=== PATIENT | male | born 1965 | race Caucasian/White ===

== ENCOUNTER 2020-12-16 02:04 | Inpatient (IN) ==
[2020-12-16] MEDS ORDERED: ACETAMINOPHEN 500 MG TAB PO STA (03:20)
[2020-12-16] MEDS ORDERED: KETOROLAC 30 MG/ML VIAL IV ONE (03:20)
[2020-12-16] MEDS ORDERED: SODIUM CHLORIDE 0.9% 1000ML 500 ML IV ONE (03:20)
[2020-12-16 03:30] LABS: Eosinophils # (auto) 0.04 K/uL (0-0.5); Eosinophils % (auto) 0.8 %; Hematocrit (blood only) 41.6 % (42-52); Hemoglobin 14.5 g/dL (14.0-18.0); Lymphocytes # (auto) 0.77 K/uL (1.2-3.4); Lymphocytes % (auto) 15.2 %; Mean Corpuscular Hgb Conc 34.9 g/dL (32-36); Mean Corpuscular Volume 91.8 fL (80-100); Monocytes # (auto) 0.25 K/uL (0.11-0.59); Monocytes % (auto) 4.9 %; Neutrophils # (auto) 4.01 K/uL (1.4-6.5); Neutrophils % (auto) 79.1 %; Platelet Count 126 K/uL (130-400); RDW Coefficient of Variation 13.8 % (11.5-14.5); RDW Standard Deviation 46.4 fL (36.4-46.3); Red Blood Count 4.53 M/uL (4.7-6.1); White Blood Count 5.07 K/uL (4.8-10.8)
[2020-12-16 03:59] LABS: D Dimer 390 ug/L FEU (0-500); INR 0.9 (0.9-1.1); Partial Thromboplastin Ratio 1.1; Prothrombin Time 9.6 Seconds (9.0-12.0)
[2020-12-16 04:01] LABS: Albumin Level 3.3 gm/dl (3.4-5.0); BUN Creatinine Ratio 14.8 (10-20); Calcium 8.3 mg/dl (8.5-10.1); Creatinine Clr Calc Pharmacy 105.4 ml/min; Est GFR (African American) 99.5 ml/min; Est GFR (Non-African American) 85.8 ml/min; Magnesium 1.9 mg/dl (1.8-2.4)
[2020-12-16 04:04] LABS: Albumin Globulin Ratio 0.9 (0.9-2); Bilirubin,Total 0.5 mg/dl (0.2-1); Globulin 3.8 gm/dl (2.5-4.0); Total Protein 7.1 gm/dl (6.4-8.2)
[2020-12-16] MEDS ORDERED: POTASSIUM CHLORIDE / WTR 10 MEQ/100 ML PLCT IV ONE (04:15)
[2020-12-16] MEDS ORDERED: DEXAMETHASONE SOD INJ 4 MG/ML VIAL IV STA (04:15)
[2020-12-16] MEDS ORDERED: DOXYCYCLINE HYCLATE 100 MG in DEXTROSE 5% 100 ML IV STA (05:45)
[2020-12-16] MEDS ORDERED: POTASSIUM CHLORIDE CRTAB 20 MEQ TABCR PO STA (05:45)
--- NOTE | 2020-12-16 05:45 | History & Physical Report ---
Date of Service December 16, 2020 Assessment & Plan (1) Acute hypoxemic respiratory failure: Plan: Secondary to severe COVID-19 pneumonia With superimposed bacterial infection No overt sepsis for now hypertension, stable recurrent PE/DVT status post anticoagulation Hypokalemia secondary to diuretic Rx, diarrhea prediabetes on Metformin, hemoglobin A1c of 5.5 from 2019 Medical telemetry Supplemental O2 Decadron and Remdesivir for severe COVID-19 pneumonia. (Patient was counseled regarding potential adverse effects from Remdesivir therapy and provided with patient education sheet.) Pulmonary consult if without improvement. Replace potassium, hold home diuretic for now until patient euvolemic DVT prophylaxis per Lovenox subcu Full code Text document was generated using [employer] voice recognition software. It may contain grammatical or spelling errors. Kindly contact undersigned for clarification of any documentation item in question. History of Present Illness Chief Complaint: Worsening shortness of breath, Covid Primary Care Provider: Tadeo Montes DO History obtained from patient and records. Medical history significant for hypertension, recurrent PE/DVT status post anticoagulation, prediabetes, osteoarthritis, MARTA on CPAP, past tobacco abuse. Last confinement February 2014 under Orthopedics services for right shoulder surgery. 1 week history of junky cough symptoms, fever, chills, achy headache, loose stools, without abdominal pain with some shortness of breath. Possible COVID-19 contacts at work. Patient has had 1 dose of COVID-19 vaccine. COVID-19 test at urgent care center from 5 days ago was positive. Supportive care recommended by PCP's office. Patient consulted ER for worsening symptoms. O2 sats 80s at 1 point at the ER. Decadron given at the ER. 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 Allergies Allergy/AdvReac Type Severity Reaction Status Date / Time GATITO Inhibitors AdvReac Severe Cough Unverified 12/16/20 07:10 Home Medications Medication Instructions Recorded Confirmed Type acetaminophen 325 mg tablet 650 mg PO QID PRN 12/16/20 12/16/20 History (Tylenol) atorvastatin 20 mg tablet 20 mg PO DAILY 12/16/20 12/16/20 History losartan 100 1 tab PO DAILY 12/16/20 12/16/20 History mg-hydrochlorothiazide 25 mg tablet metformin 500 mg tablet 500 mg PO BIDM 12/16/20 12/16/20 History sertraline 100 mg tablet 100 mg PO DAILY 12/16/20 12/16/20 History Past Med/Surg History Social History Smoking Status: Never smoker Do You Dip or Chew Tobacco: Yes; Tobacco Cessation Education Requested by Patient: No Hx Alcohol Use: No Hx Substance Use: No Preferred Language: Gabonese Communication Ability: Effective Caponizer Required: Yes Beliefs That Will Affect Care: None Current Living Situation: Alone Other Information That Helps Us Care for You: No Feels Safe at Home: No Is there a partner from a previous relationship who is making you feel unsafe now?: No Any Concerns about Your Family Situation: No Would You Like to Speak to Someone About Your Situation: No Safety Concerns: Feels Safe At This Time Review of Systems Review of Systems: As per HPI, all 10 systems reviewed, all other ROS negative Physical Exam Physical Exam: GENERAL: Comfortable, pleasant, obese, no respiratory distress SKIN: Normal color, warm HEENT: Alopecia, [place] palpebral conjunctivae, no ptosis, dry buccal mucosa, nasal cannula in place NECK : Supple, short neck, no tenderness CHEST : Decreased breath sounds, no tenderness HEART : RRR, no obvious murmurs ABDOMEN: Some distention, nontender EXTREMITIES : Minimal LE swelling, no LE tenderness, no other conspicuous deformities noted NEUROLOGIC : Coherent, no facial asymmetry, no other gross focality Results & Data Results & Data ([facility]) Vital Signs (Past 12 Hours) Vital Signs Temp Pulse Resp BP Pulse Ox 12/16/20 05:00 79 20 133/79 94 12/16/20 04:45 83 19 160/98 H 94 12/16/20 04:30 80 20 153/90 H 93 12/16/20 04:19 38.0 C H 12/16/20 04:15 85 17 125/84 93 12/16/20 04:00 88 14 127/86 94 12/16/20 03:45 87 21 154/100 H 96 12/16/20 03:30 81 12 146/101 H 95 12/16/20 03:25 17 97 12/16/20 03:18 83 16 150/104 H 95 12/16/20 03:03 88 L 12/16/20 02:58 93 12/16/20 02:09 38.4 C H 96 H 20 139/86 93 Laboratory Results Laboratory Results WBC 5.07 K/uL (4.8-10.8) 12/16/20 03:00 RBC 4.53 M/uL (4.7-6.1) L 12/16/20 03:00 Hgb 14.5 g/dL (14.0-18.0) 12/16/20 03:00 Hct 41.6 % (42-52) L 12/16/20 03:00 MCV 91.8 fL (80-100) 12/16/20 03:00 MCH 32.0 pg (25-34) 12/16/20 03:00 MCHC 34.9 g/dL (32-36) 12/16/20 03:00 RDW Std Deviation 46.4 fL (36.4-46.3) H 12/16/20 03:00 RDW Coeff of Christiano 13.8 % (11.5-14.5) 12/16/20 03:00 Plt Count 126 K/uL (130-400) L 12/16/20 03:00 MPV 11.0 fL (7.4-10.4) H 12/16/20 03:00 Immature Gran % (Auto) 0.0 % 12/16/20 03:00 Neut % (Auto) 79.1 % 12/16/20 03:00 Lymph % (Auto) 15.2 % 12/16/20 03:00 Ida % (Auto) 4.9 % 12/16/20 03:00 Eos % (Auto) 0.8 % 12/16/20 03:00 Baso % (Auto) 0.0 % 12/16/20 03:00 Neut # (Auto) 4.01 K/uL (1.4-6.5) 12/16/20 03:00 Lymph # (Auto) 0.77 K/uL (1.2-3.4) L 12/16/20 03:00 Ida # (Auto) 0.25 K/uL (0.11-0.59) 12/16/20 03:00 Eos # (Auto) 0.04 K/uL (0-0.5) 12/16/20 03:00 Baso # (Auto) 0.00 K/uL (0-0.2) 12/16/20 03:00 Immature Gran # (Auto) 0.00 K/uL (0.00-0.02) 12/16/20 03:00 PT 9.6 Seconds (9.0-12.0) 12/16/20 03:00 INR 0.9 (0.9-1.1) 12/16/20 03:00 APTT 29.0 Seconds (21.0-31.0) 12/16/20 03:00 PTT Ratio 1.1 12/16/20 03:00 D-Dimer 390 ug/L FEU (0-500) 12/16/20 03:00 Sodium 130 mmol/L (136-145) L 12/16/20 03:00 Potassium 3.0 mmol/L (3.5-5.1) L 12/16/20 03:00 Chloride 98 mmol/L (98-107) 12/16/20 03:00 Carbon Dioxide 30 mmol/L (21-32) 12/16/20 03:00 Anion Gap 2.0 (3-11) L 12/16/20 03:00 BUN 15 mg/dl (7-18) 12/16/20 03:00 Creatinine 0.98 mg/dl (0.6-1.4) 12/16/20 03:00 Est Cr Clr Drug Dosing 105.4 ml/min 12/16/20 03:00 Est GFR ( Amer) 99.5 ml/min 12/16/20 03:00 Est GFR (Non-Af Amer) 85.8 ml/min 12/16/20 03:00 BUN/Creatinine Ratio 14.8 (10-20) 12/16/20 03:00 Glucose 128 mg/dl (70-99) H 12/16/20 03:00 Lactate 1.2 mmol/L (0.4-2.0) 12/16/20 04:49 Calcium 8.3 mg/dl (8.5-10.1) L 12/16/20 03:00 Magnesium 1.9 mg/dl (1.8-2.4) 12/16/20 03:00 Total Bilirubin 0.5 mg/dl (0.2-1) 12/16/20 03:00 AST 52 U/L (15-37) H 12/16/20 03:00 ALT 36 U/L (12-78) 12/16/20 03:00 Alkaline Phosphatase 58 U/L (45-117) 12/16/20 03:00 Total Protein 7.1 gm/dl (6.4-8.2) 12/16/20 03:00 Albumin 3.3 gm/dl (3.4-5.0) L 12/16/20 03:00 Globulin 3.8 gm/dl (2.5-4.0) 12/16/20 03:00 Albumin/Globulin Ratio 0.9 (0.9-2) 12/16/20 03:00 Diagnostic Findings Chest x-ray as per my interpretation multifocal pneumonia EKG as per my interpretation : Rate 90, NSR, LAD, LAFB, incomplete RBBB, diffuse T wave flattening
[2020-12-16] MEDS ORDERED: REMDESIVIR 200 MG in SODIUM CHLORIDE 0.9% 210 ML IV STA (05:53)
--- NOTE | 2020-12-16 07:40 | XRay Report ---
XR chest 1V portable HISTORY: 55 years-old Male SEPSIS acute sepsis COMPARISON: Chest radiograph and CTA chest 02/28/2014 TECHNIQUE: Portable AP view of the chest FINDINGS: Cardiac silhouette is enlarged. Pulmonary vascular congestion with reticular interstitial opacities. Ill-defined airspace densities are notably present throughout the left lung. Blunting of the costophr enic angles. No pneumothorax. Degenerative changes of the spine and left shoulder. Right shoulder tot al joint arthroplasty. IMPRESSION: Cardiomegaly with left greater than right bilateral pulmonary opacities suggestive of mul tifocal pneumonia. ACT 112: Negative or not required by law. The above report was generated using voice recognition software. It may contain grammatical, syntax o r spelling errors. Electronically signed by: Walter Jimenez M.D. 12/16/2020 7:39 AM
[2020-12-16] MEDS ORDERED: ACETAMINOPHEN 325 MG TAB PO PRN ×2 (08:08)
[2020-12-16] MEDS ORDERED: MAGNESIUM SULFATE / D5W 1 GM/100 ML BAG IV ONE (08:08)
[2020-12-16] MEDS ORDERED: PROMETHAZINE HCL 12.5 MG in SODIUM CHLORIDE 0.9% 50 ML IV PRN (08:08)
[2020-12-16] MEDS ORDERED: POTASSIUM CHLORIDE 40 MEQ in SODIUM CHLORIDE 0.9% 1000ML 1,000 ML IV ONE (08:08)
[2020-12-16] MEDS ORDERED: ALBUTEROL HFA 8 GM INHALER INH PRN (08:08)
[2020-12-16] MEDS ORDERED: oxyCODONE HCL IR 5 MG TAB (IMMEDIATE RELEASE) PO PRN (08:08)
[2020-12-16] MEDS ORDERED: SODIUM CHLORIDE 0.9% 10ML FLUSH IV SCH (08:08)
[2020-12-16] MEDS ORDERED: ENOXAPARIN INJ 40 MG/0.4 ML SYR SQ SCH ×2 (09:00→21:00)
[2020-12-16] MEDS: SERTRALINE HCL 100 MG TABLET PO SCH (11:08)
[2020-12-16] MEDS: ATORVASTATIN 20 MG TAB PO SCH (11:08)
[2020-12-16] MEDS: LOSARTAN POTASSIUM 50 MG TAB PO SCH (11:08)
--- NOTE | 2020-12-16 18:25 | Hospitalist Progress Note ---
Date of Service December 16, 2020 Assessment & Plan (1) Acute hypoxemic respiratory failure: Plan: Present on admission with worsening SOB Testing positive with COVID 19 CXR showed cardiomegaly with left greater than right bilateral pulmonary opacities suggestive of multifocal pneumonia. Received Dexamethasone 10mg IV and Doxycycline Continue Remdesivir and Decadron, will continue Continue monitor liver enzymes while on Remdesivir` Will check Inflammatory marker such as ESR, CRP, Ferritin and procalcitonin Pt was advised to prone Continue oxygen supplement Hypokalemia K replaced Continue monitor BMP Hx recurrent DVTPE Will place on Lovenox px Hypertension BP stable DVT prophylaxis per Lovenox subcu Full code Admission and Anticipated Discharge Date Admission Date: December 16, 2020 Subjective Pt was seen and examined for follow up of SOB due to COVID 19 Lying in bed with no acute distress Pt said that his breathing is slightly better Denies any chest pain, palpitation, dizziness, and fever Review of Systems Review of Systems: All systems reviewed & are unremarkable except as noted in Subjective Physical Exam Physical Exam: General- No acute distress Head- atraumatic Eyes- PERRL, EOMI, ENT- oropharynx clear Neck- supple, no JVD Lungs- Diminished breath sound Heart- regular rhythm; no murmur Abdomen- normal bowel sounds, soft, nontender Extremities- no calf tenderness Neuro- alert, oriented x 3; PERRL, EOMI; no facial palsy; no dysarthria Skin- warm & dry Results & Data Results & [facility] ([facility]) Vital Signs (Past 12 Hours) Vital Signs Temp Pulse Pulse Resp BP BP Pulse Ox 12/16/20 16:41 36.7 C 75 20 129/77 94 12/16/20 12:21 36.6 C 66 19 108/65 91 12/16/20 09:00 71 12/16/20 08:08 36.9 C 68 16 130/88 96 12/16/20 07:40 20 97 12/16/20 06:30 83 15 125/84 93
--- NOTE | 2020-12-16 18:27 | Emergency Department Note ---
Impression & Plan COVID-19, Multifocal pneumonia, Hypoxia, Hypokalemia Admit to the [facility] ED Provider Note NAME: DARIEN BARILLAS AGE: 55 SEX: M ARRIVES VIA: Walk-In INFORMANT: [Patient ED PROVIDER(S): Tala Gaspar DO CHIEF COMPLAINT: Shortness of breath and fever PLAN: Disposition: Admit to the [facility] service Condition: Guarded MEDICAL DECISION MAKING: This is a 55-year-old male patient who presents to the emergency department with fever, shortness of breath and generalized weakness. Patient was diagnosed with COVID-19. Patient was concerned because his weakness was worsening. Patient has multifocal pneumonia on chest x-ray and was hypoxic without oxygen. Patient was given IV Decadron here in the emergency department. [facility]. Triage Nursing notes reviewed and agree with them. Vital Signs: reviewed and remarkable for hypoxia Differential diagnosis: Pneumonia, electrolyte abnormality, dehydration, COVID-19 ER treatment provided: IV Decadron IV normal saline Oral Tylenol IV Toradol IV potassium Diagnostics interpreted by me: ECG: Normal sinus rhythm at a rate of 89 with T wave inversions in lead aVL. No ST segment elevation or signs of ischemia. Cardiac Monitoring: Normal sinus rhythm at a rate of 84 Laboratory studies: See below Imaging studies: As per my interpretation Portable chest x-ray: Multifocal pneumonia consistent with Covid HPI: 55/M arrives for evaluation of shortness of breath and fever. Patient presents to the emergency department complaining of fever, headache, shortness of breath, dizziness and lightheadedness. Patient was diagnosed with COVID-19 earlier this week. He has had worsening generalized weakness. The patient has a history of previous pulmonary emboli. ROS: See above HPI for pertinent positives & negatives. A total of 10 systems reviewed and were otherwise negative. 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 Extraocular eye muscles are intact, and sclera are anicteric. Nose - moist nasal mucosa without discharge. Mouth - moist buccal mucosa. Oropharynx is nonerythematous and there is no tonsillar exudate or edema noted. Neck: Supple; no JVD, nuchal rigidity, cervical lymphadenopathy, or auscultated bruits. Heart: Regular rate and rhythm. There is a normal S1 and S2 with no murmurs, clicks, or gallops appreciated. Lungs: Diminished breath sounds throughout with rhonchi in both bases. Abdomen: Soft, completely nontender, nondistended, with good bowel sounds. There are no palpable pulsatile masses or hepatosplenomegaly. There is no guarding, rigidity, or rebound noted. Extremities: No evidence of cyanosis, clubbing, or edema. There are easily palpable peripheral pulses. Skin: warm and dry with good turgor and no rashes. ED COURSE: The patient was evaluated in room B6. A septic protocol was performed. Laboratory studies were drawn. An order was placed for continuous cardiac monitoring. The patient was in a normal sinus rhythm at a rate of 84. The patient was started on IV normal saline solution. He was given a dose of 10 mg of IV Decadron. Patient was placed on supplemental oxygen for hypoxia. Patient had chest x-ray performed. The patient felt more comfortable. [facility] for further management. The patient was given a dose of oral Tylenol Patient was given a dose of 30 mg of IV Toradol for his diffuse body aches. He was noted to be hypokalemic and was given a K rider. I have personally spent greater than 45 minutes of critical care time in the direct management of this patient. This includes bedside care, interpretation of diagnostic studies, and testing, discussion with consultants, patient, and family members, and other required patient management activities. This 45 minut es is in excess of all separately billable procedures. Tala Gaspar, DO Past Med/Surg History Social History Smoking Status: Never smoker Do You Dip or Chew Tobacco: Yes; Tobacco Cessation Education Requested by Patient: No Hx Alcohol Use: No Hx Substance Use: No Preferred Language: Qatari Communication Ability: Effective Cardiology Specialist Required: No Beliefs That Will Affect Care: None Current Living Situation: Alone Other Information That Helps Us Care for You: No Feels Safe at Home: No Is there a partner from a previous relationship who is making you feel unsafe now?: No Any Concerns about Your Family Situation: No Would You Like to Speak to Someone About Your Situation: No Safety Concerns: Feels Safe At This Time Assistive Devices: Oxygen - Continuous Allergies Allergies Allergy/AdvReac Type Severity Reaction Status Date / Time GATITO Inhibitors AdvReac Severe Cough Unverified 12/16/20 07:10 Home Meds Home Medications Medication Instructions Recorded Confirmed acetaminophen 325 mg tablet 650 mg PO QID PRN 12/16/20 12/16/20 (Tylenol) atorvastatin 20 mg tablet 20 mg PO DAILY 12/16/20 12/16/20 losartan 100 1 tab PO DAILY 12/16/20 12/16/20 mg-hydrochlorothiazide 25 mg tablet metformin 500 mg tablet 500 mg PO BIDM 12/16/20 12/16/20 sertraline 100 mg tablet 100 mg PO DAILY 12/16/20 12/16/20 Results & Data (ED) Vital Signs Vital Signs - 24 hr 12/16/20 02:09 12/16/20 02:58 12/16/20 03:03 Temperature 38.4 C H Temperature Source Oral Pulse Rate 96 H Pulse Rate from SpO2 Sensor Respiratory Rate 20 Respiratory Effort / Characteristics Non-Labored Spontaneous Non-Labored Respiratory Depth Normal Normal Respiratory Pattern Regular Blood Pressure 139/86 Blood Pressure Mean 103 Blood Pressure Position Sitting Pulse Oximetry 93 93 88 L Oxygen Delivery Method Room Air Room Air Nasal Cannula Oxygen Flow Rate 0 Sepsis Recent Fever Within 48 Hours Yes Sepsis New/Unexplained Change in Mental Status N/A Sepsis Action Taken by Nursing No Action Required Oxygen Flow Rate - Titration 2 Pulse Oximetry Post Tiitration 93 12/16/20 03:18 12/16/20 03:25 12/16/20 03:30 Temperature Temperature Source Pulse Rate 83 81 Pulse Rate from SpO2 Sensor 83 81 Respiratory Rate 16 17 12 Respiratory Effort / Characteristics Non-Labored Respiratory Depth Respiratory Pattern Blood Pressure 150/104 H 146/101 H Blood Pressure Mean 119 116 Blood Pressure Position Pulse Oximetry 95 97 95 Oxygen Delivery Method Nasal Cannula Nasal Cannula Nasal Cannula Oxygen Flow Rate 2 2 2 Sepsis Recent Fever Within 48 Hours Sepsis New/Unexplained Change in Mental Status Sepsis Action Taken by Nursing Oxygen Flow Rate - Titration Pulse Oximetry Post Tiitration 12/16/20 03:45 12/16/20 04:00 12/16/20 04:15 Temperature Temperature Source Pulse Rate 87 88 85 Pulse Rate from SpO2 Sensor 87 89 86 Respiratory Rate 21 14 17 Respiratory Effort / Characteristics Respiratory Depth Respiratory Pattern Blood Pressure 154/100 H 127/86 125/84 Blood Pressure Mean 118 99 97 Blood Pressure Position Pulse Oximetry 96 94 93 Oxygen Delivery Method Nasal Cannula Room Air Room Air Oxygen Flow Rate 2 Sepsis Recent Fever Within 48 Hours Sepsis New/Unexplained Change in Mental Status Sepsis Action Taken by Nursing Oxygen Flow Rate - Titration Pulse Oximetry Post Tiitration 12/16/20 04:19 12/16/20 04:30 12/16/20 04:45 Temperature 38.0 C H Temperature Source Oral Pulse Rate 80 83 Pulse Rate from SpO2 Sensor 80 83 Respiratory Rate 20 19 Respiratory Effort / Characteristics Respiratory Depth Respiratory Pattern Blood Pressure 153/90 H 160/98 H Blood Pressure Mean 111 118 Blood Pressure Position Pulse Oximetry 93 94 Oxygen Delivery Method Room Air Room Air Oxygen Flow Rate Sepsis Recent Fever Within 48 Hours Sepsis New/Unexplained Change in Mental Status Sepsis Action Taken by Nursing Oxygen Flow Rate - Titration Pulse Oximetry Post Tiitration 12/16/20 05:00 12/16/20 05:15 12/16/20 05:30 Temperature Temperature Source Pulse Rate 79 77 83 Pulse Rate from SpO2 Sensor 80 77 81 Respiratory Rate 20 12 13 Respiratory Effort / Characteristics Respiratory Depth Respiratory Pattern Blood Pressure 133/79 134/88 141/97 H Blood Pressure Mean 97 103 111 Blood Pressure Position Pulse Oximetry 94 94 93 Oxygen Delivery Method Room Air Nasal Cannula Nasal Cannula Oxygen Flow Rate 2 2 Sepsis Recent Fever Within 48 Hours Sepsis New/Unexplained Change in Mental Status Sepsis Action Taken by Nursing Oxygen Flow Rate - Titration Pulse Oximetry Post Tiitration 12/16/20 05:45 Temperature Temperature Source Pulse Rate 77 Pulse Rate from SpO2 Sensor 77 Respiratory Rate 14 Respiratory Effort / Characteristics Respiratory Depth Respiratory Pattern Blood Pressure 136/75 Blood Pressure Mean 95 Blood Pressure Position Pulse Oximetry 94 Oxygen Delivery Method Nasal Cannula Oxygen Flow Rate 2 Sepsis Recent Fever Within 48 Hours Sepsis New/Unexplained Change in Mental Status Sepsis Action Taken by Nursing Oxygen Flow Rate - Titration Pulse Oximetry Post Tiitration Laboratory Data Result diagrams: 12/17/20 06:25 12/17/20 06:25 Lab Results 12/16/20 12/16/20 12/16/20 Range/Units 03:00 03:00 03:00 WBC 5.07 (4.8-10.8) K/uL RBC 4.53 L (4.7-6.1) M/uL Hgb 14.5 (14.0-18.0) g/dL Hct 41.6 L (42-52) % MCV 91.8 (80-100) fL MCH 32.0 (25-34) pg MCHC 34.9 (32-36) g/dL RDW Std Deviation 46.4 H (36.4-46.3) fL RDW Coeff of Christiano 13.8 (11.5-14.5) % Plt Count 126 L (130-400) K/uL MPV 11.0 H (7.4-10.4) fL Immature Gran % (Auto) 0.0 % Neut % (Auto) 79.1 % Lymph % (Auto) 15.2 % Benzie % (Auto) 4.9 % Eos % (Auto) 0.8 % Baso % (Auto) 0.0 % Neut # (Auto) 4.01 (1.4-6.5) K/uL Lymph # (Auto) 0.77 L (1.2-3.4) K/uL Benzie # (Auto) 0.25 (0.11-0.59) K/uL Eos # (Auto) 0.04 (0-0.5) K/uL Baso # (Auto) 0.00 (0-0.2) K/uL Immature Gran # (Auto) 0.00 (0.00-0.02) K/uL PT 9.6 (9.0-12.0) Seconds INR 0.9 (0.9-1.1) APTT 29.0 (21.0-31.0) Seconds PTT Ratio 1.1 D-Dimer 390 (0-500) ug/L FEU Sodium 130 L (136-145) mmol/L Potassium 3.0 L (3.5-5.1) mmol/L Chloride 98 (98-107) mmol/L Carbon Dioxide 30 (21-32) mmol/L Anion Gap 2.0 L (3-11) BUN 15 (7-18) mg/dl Creatinine 0.98 (0.6-1.4) mg/dl Est Cr Clr Drug Dosing 105.4 ml/min Est GFR ( Amer) 99.5 ml/min Est GFR (Non-Af Amer) 85.8 ml/min BUN/Creatinine Ratio 14.8 (10-20) Glucose 128 H (70-99) mg/dl Lactate (0.4-2.0) mmol/L Calcium 8.3 L (8.5-10.1) mg/dl Magnesium 1.9 (1.8-2.4) mg/dl Total Bilirubin 0.5 (0.2-1) mg/dl AST 52 H (15-37) U/L ALT 36 (12-78) U/L Alkaline Phosphatase 58 (45-117) U/L Total Protein 7.1 (6.4-8.2) gm/dl Albumin 3.3 L (3.4-5.0) gm/dl Globulin 3.8 (2.5-4.0) gm/dl Albumin/Globulin Ratio 0.9 (0.9-2) 12/16/20 Range/Units 04:49 WBC (4.8-10.8) K/uL RBC (4.7-6.1) M/uL Hgb (14.0-18.0) g/dL Hct (42-52) % MCV (80-100) fL MCH (25-34) pg MCHC (32-36) g/dL RDW Std Deviation (36.4-46.3) fL RDW Coeff of Christiano (11.5-14.5) % Plt Count (130-400) K/uL MPV (7.4-10.4) fL Immature Gran % (Auto) % Neut % (Auto) % Lymph % (Auto) % Benzie % (Auto) % Eos % (Auto) % Baso % (Auto) % Neut # (Auto) (1.4-6.5) K/uL Lymph # (Auto) (1.2-3.4) K/uL Benzie # (Auto) (0.11-0.59) K/uL Eos # (Auto) (0-0.5) K/uL Baso # (Auto) (0-0.2) K/uL Immature Gran # (Auto) (0.00-0.02) K/uL PT (9.0-12.0) Seconds INR (0.9-1.1) APTT (21.0-31.0) Seconds PTT Ratio D-Dimer (0-500) ug/L FEU Sodium (136-145) mmol/L Potassium (3.5-5.1) mmol/L Chloride (98-107) mmol/L Carbon Dioxide (21-32) mmol/L Anion Gap (3-11) BUN (7-18) mg/dl Creatinine (0.6-1.4) mg/dl Est Cr Clr Drug Dosing ml/min Est GFR ( Amer) ml/min Est GFR (Non-Af Amer) ml/min BUN/Creatinine Ratio (10-20) Glucose (70-99) mg/dl Lactate 1.2 (0.4-2.0) mmol/L Calcium (8.5-10.1) mg/dl Magnesium (1.8-2.4) mg/dl Total Bilirubin (0.2-1) mg/dl AST (15-37) U/L ALT (12-78) U/L Alkaline Phosphatase (45-117) U/L Total Protein (6.4-8.2) gm/dl Albumin (3.4-5.0) gm/dl Globulin (2.5-4.0) gm/dl Albumin/Globulin Ratio (0.9-2) Administered Medications Atorvastatin Calcium (Atorvastatin 20 Mg Tab) 20 mg PO DAILY HARRIETT Stop: 01/15/21 08:59 Last Admin: 12/17/20 08:42 Dose: 20 mg Documented by: [id number] Admin: 12/16/20 11:08 Dose: 20 mg Documented by: [id number] Doxycycline Hyclate (Doxycycline Hyclate 100 Mg Cap) 100 mg PO BID HARRIETT Stop: 12/23/20 20:59 Last Admin: 12/17/20 08:42 Dose: 100 mg Documented by: [id number] Admin: 12/16/20 19:44 Dose: 100 mg Documented by: [id number] Enoxaparin Sodium (Enoxaparin Inj 40 Mg/0.4 Ml Syr) 40 mg SQ QAM HARRIETT Stop: 01/16/21 08:59 Last Admin: 12/17/20 08:45 Dose: 40 mg Documented by: [id number] Dexamethasone 6 mg/ Syringe 1.5 mls @ 1 mls/min IV DAILY HARRIETT Stop: 01/16/21 08:59 Last Admin: 12/17/20 08:43 Dose: 1 mls/min Documented by: [id number] Losartan Potassium (Losartan Potassium 50 Mg Tab) 100 mg PO QAM HARRIETT Stop: 01/15/21 08:59 Last Admin: 09/26/21 08:42 Dose: 100 mg Documented by: [id number] Admin: 12/16/20 11:08 Dose: 100 mg Documented by: [id number] Sertraline HCl (Sertraline Hcl 100 Mg Tablet) 100 mg PO DAILY HARRIETT Stop: 01/15/21 08:59 Last Admin: 12/17/20 08:43 Dose: 100 mg Documented by: [id number] Admin: 12/16/20 11:08 Dose: 100 mg Documented by: [id number] Discontinued Medications Acetaminophen (Acetaminophen 500 Mg Tab) 1,000 mg PO NOW STA Stop: 12/16/20 03:21 Last Admin: 12/16/20 03:36 Dose: 1,000 mg Documented by: [id number] Dexamethasone (Dexamethasone Sod Inj 4 Mg/Ml Vial) 10 mg IV NOW STA Stop: 12/16/20 04:16 Last Admin: 12/16/20 04:40 Dose: 10 mg Documented by: [id number] Enoxaparin Sodium (Enoxaparin Inj 40 Mg/0.4 Ml Syr) 40 mg SQ QAM HARRIETT Stop: 01/15/21 08:59 Last Admin: 12/16/20 11:09 Dose: 40 mg Documented by: [id number] Sodium Chloride (Nss 1000ml) 500 mls @ 999 mls/hr IV .Q31M ONE Stop: 12/16/20 03:50 Last Infusion: 12/16/20 03:46 Dose: 0 mls/hr Documented by: [id number] Admin: 12/16/20 03:15 Dose: 999 mls/hr Documented by: [id number] Potassium Chloride (K Virgil / Wtr) 10 meq in 100 mls @ 100 mls/hr IV ONE ONE Stop: 12/16/20 05:14 Last Infusion: 12/16/20 05:55 Dose: 0 mls/hr Documented by: [id number] Admin: 12/16/20 04:41 Dose: 100 mls/hr Documented by: [id number] Doxycycline Hyclate 100 mg/ (Dextrose) 110 mls @ 50 mls/hr IV NOW STA Stop: 12/16/20 07:56 Last Infusion: 12/16/20 09:06 Dose: 0 mls/hr Documented by: [id number] Admin: 12/16/20 06:05 Dose: 50 mls/hr Documented by: [id number] Remdesivir 200 mg/ Sodium (Chloride) 250 mls @ 125 mls/hr IV ONE STA; Protocol Stop: 12/16/20 07:52 Last Infusion: 12/16/20 09:06 Dose: 0 mls/hr Documented by: [id number] Admin: 12/16/20 06:27 Dose: 125 mls/hr Documented by: [id number] Magnesium Sulfate/Dextrose (Magnesium Sulfate / D5w) 1 gm in 100 mls @ 50 mls/hr IV ONE ONE Stop: 12/16/20 10:07 Last Infusion: 12/16/20 12:02 Dose: 0 mls/hr Documented by: [id number] Admin: 12/16/20 09:56 Dose: 50 mls/hr Documented by: [id number] Potassium Chloride 40 meq/ (Sodium Chloride) 1,020 mls @ 50 mls/hr IV .[id number] ONE Stop: 12/17/20 04:31 Last Infusion: 12/17/20 04:33 Dose: 0 mls/hr Documented by: [id number] Admin: 12/16/20 12:03 Dose: 50 mls/hr Documented by: [id number] Ketorolac Tromethamine (Ketorolac 30 Mg/Ml Vial) 30 mg IV NOW ONE Stop: 12/16/20 03:21 Last Admin: 12/16/20 03:37 Dose: 30 mg Documented by: [id number] Potassium Chloride (Potassium Chloride Crtab 20 Meq Tabcr) 40 meq PO NOW STA Stop: 12/16/20 05:46 Last Admin: 12/16/20 06:10 Dose: 40 meq Documented by: [id number] Sodium Chloride (Sodium Chloride 0.9% 10ml Flush) 30 ml IV Q24H HARRIETT Stop: 12/20/20 08:09 Last Admin: 12/16/20 08:28 Dose: 30 ml Documented by: [id number] Imaging Data Radiologist's Impression: Chest X-Ray 12/16/20 03:01 XR chest 1V portable HISTORY: 55 years-old Male SEPSIS acute sepsis COMPARISON: Chest radiograph and CTA chest 02/28/2014 TECHNIQUE: Portable AP view of the chest FINDINGS: Cardiac silhouette is enlarged. Pulmonary vascular congestion with reticular interstitial opacities. Ill-defined airspace densities are notably present throughout the left lung. Blunting of the costophrenic angles. No pneumothorax. Degenerative changes of the spine and left shoulder. Right shoulder total joint arthroplasty. IMPRESSION: Cardiomegaly with left greater than right bilateral pulmonary opacities suggestive of multifocal pneumonia. ACT 112: Negative or not required by law. The above report was generated using voice recognition software. It may contain grammatical, syntax or spelling errors. Electronically signed by: Walter Jimenez M.D. 12/16/2020 7:39 AM Discharge Plan Visit Data Chief Complaint: Shortness of Breath/Dyspnea Stated Complaint: COVID+ ON FRIDAY - SOB,FEVER,HEAD PRESSURE ED Provider: Tala Gaspar Discharge Problem: COVID-19, Multifocal pneumonia, Hypoxia, Hypokalemia Patient Disposition: Admitted As Inpatient Discharge Instructions Interventions: ED Discharge Assessment Last Done: 12/16/20 08:12
[2020-12-16] MEDS: DOXYCYCLINE HYCLATE 100 MG CAP PO SCH (19:44)
--- NOTE | 2020-12-17 07:03 | Electrocardiogram Report ---
Test Reason : Blood Pressure : / mmHG Vent. Rate : 089 BPM Atrial Rate : 089 BPM P-R Int : 178 ms QRS Dur : 102 ms QT Int : 362 ms P-R-T Axes : 045 -35 066 degrees QTc Int : 440 ms Normal sinus rhythm Left axis deviation Nonspecific T wave abnormality Abnormal ECG When compared with ECG of 28-FEB-2014 17:52, No significant change was found Confirmed by Cuauhtemoc Zazueta ([id number]) on 12/17/2020 7:03:13 AM Referred By: REFERRED SELF Confirmed By:Cuauhtemoc Zazueta
[2020-12-17 07:05] LABS: Hematocrit (blood only) 38.1 % (42-52); Lymphocytes % (auto) 11.6 %; Mean Corpuscular Hemoglobin 32.2 pg (25-34); Mean Corpuscular Hgb Conc 34.1 g/dL (32-36); Mean Corpuscular Volume 94.3 fL (80-100); Mean Platelet Volume 11.3 fL (7.4-10.4); Monocytes # (auto) 0.25 K/uL (0.11-0.59); Monocytes % (auto) 3.6 %; Neutrophils # (auto) 5.85 K/uL (1.4-6.5); Neutrophils % (auto) 84.8 %; Platelet Count 151 K/uL (130-400); RDW Coefficient of Variation 13.5 % (11.5-14.5); RDW Standard Deviation 47.1 fL (36.4-46.3); Red Blood Count 4.04 M/uL (4.7-6.1)
[2020-12-17 07:41] LABS: BUN Creatinine Ratio 23.1 (10-20); Calcium 7.8 mg/dl (8.5-10.1); Creatinine Clr Calc Pharmacy 126.9 ml/min; Est GFR (African American) 114.6 ml/min; Est GFR (Non-African American) 98.9 ml/min; Potassium 3.8 mmol/L (3.5-5.1)
[2020-12-17] MEDS: LOSARTAN POTASSIUM 50 MG TAB PO SCH (08:42)
[2020-12-17] MEDS: ATORVASTATIN 20 MG TAB PO SCH (08:42)
[2020-12-17] MEDS: DOXYCYCLINE HYCLATE 100 MG CAP PO SCH ×2 (08:42→19:46)
[2020-12-17] MEDS: SERTRALINE HCL 100 MG TABLET PO SCH (08:43)
[2020-12-17] MEDS: dexAMETHasone 6 MG in SYRINGE 0 ML IV SCH (08:43)
[2020-12-17] MEDS: ENOXAPARIN INJ 40 MG/0.4 ML SYR SQ SCH (08:45)
[2020-12-17 11:19] LABS: Albumin Level 2.7 gm/dl (3.4-5.0); Bilirubin,Total 0.3 mg/dl (0.2-1); C Reactive Protein 1.86 mg/dl (0-0.29); Ferritin 1469.1 ng/ml (8-388); Total Protein 6.3 gm/dl (6.4-8.2)
[2020-12-17] MEDS: SODIUM CHLORIDE 0.9% 10ML FLUSH IV SCH (12:39)
[2020-12-17] MEDS: REMDESIVIR 100 MG in SODIUM CHLORIDE 0.9% 230 ML IV SCH (12:39)
[2020-12-17] MEDS ORDERED: FUROSEMIDE 20 MG in SYRINGE 0 ML IV ONE (12:54)
[2020-12-17] MEDS ORDERED: FUROSEMIDE 40 MG/4 ML VIAL IV ONE (13:15)
--- NOTE | 2020-12-17 16:43 | Hospitalist Progress Note ---
Date of Service December 17, 2020 Assessment & Plan (1) Acute hypoxemic respiratory failure: Plan: Present on admission with worsening SOB Testing positive with COVID 19 CXR showed cardiomegaly with left greater than right bilateral pulmonary opacities suggestive of multifocal pneumonia. Received Dexamethasone 10mg IV and Doxycycline Continue Remdesivir and Decadron 6 mg daily Continue monitor liver enzymes while on Remdesivir` Inflammatory marker such as ESR 30, CRP 1.86 Ferritin 1469 and procalcitonin negative Pt was advised to continue proning Continue oxygen supplement Will give lasix 20mg x1 today Hypokalemia K 3.8 today Continue monitor BMP Hx recurrent DVTPE Continue Lovenox subq px Hypertension BP stable DVT prophylaxis per Lovenox subcu Full code Admission and Anticipated Discharge Date Admission Date: December 16, 2020 Subjective Pt was seen and examined for follow up of SOB due to COVID 19 Lying in bed with no acute distress Pt said that his breathing was alittle heavy today Denies any chest pain, palpitation, dizziness, and fever Review of Systems Review of Systems: All systems reviewed & are unremarkable except as noted in Subjective Physical Exam Physical Exam: General- No acute distress Head- atraumatic Eyes- PERRL, EOMI, ENT- oropharynx clear Neck- supple, no JVD Lungs- Diminished breath sound Heart- regular rhythm; no murmur Abdomen- normal bowel sounds, soft, nontender Extremities- no calf tenderness Neuro- alert, oriented x 3; PERRL, EOMI; no facial palsy; no dysarthria Skin- warm & dry Results & Data Results & Data ([facility]) Vital Signs (Past 12 Hours) Vital Signs Temp Pulse Pulse Pulse Resp BP Pulse Ox 12/17/20 15:51 73 12/17/20 15:23 36.9 C 65 16 127/75 92 12/17/20 11:09 36.7 C 83 20 133/78 91 12/17/20 07:37 37.2 C 63 18 112/67 94 12/17/20 07:33 60
[2020-12-18 06:49] LABS: Albumin Level 2.7 gm/dl (3.4-5.0); BUN Creatinine Ratio 24.9 (10-20); C Reactive Protein 1.2 mg/dl (0-0.29); Calcium 7.2 mg/dl (8.5-10.1); Creatinine Clr Calc Pharmacy 130.7 ml/min; Est GFR (African American) 116.3 ml/min; Est GFR (Non-African American) 100.4 ml/min; Potassium 3.6 mmol/L (3.5-5.1)
[2020-12-18 06:54] LABS: Albumin Globulin Ratio 0.7 (0.9-2); Bilirubin,Total 0.4 mg/dl (0.2-1); Ferritin 1212.7 ng/ml (8-388); Globulin 3.7 gm/dl (2.5-4.0); Total Protein 6.4 gm/dl (6.4-8.2)
[2020-12-18] MEDS ORDERED: FUROSEMIDE 20 MG in SYRINGE 0 ML IV ONE (08:27)
[2020-12-18] MEDS ORDERED: FUROSEMIDE 40 MG/4 ML VIAL IV SCH (08:45)
[2020-12-18] MEDS: ENOXAPARIN INJ 40 MG/0.4 ML SYR SQ SCH (08:57)
[2020-12-18] MEDS: dexAMETHasone 6 MG in SYRINGE 0 ML IV SCH (08:57)
[2020-12-18] MEDS: SERTRALINE HCL 100 MG TABLET PO SCH (08:57)
[2020-12-18] MEDS: LOSARTAN POTASSIUM 50 MG TAB PO SCH (08:58)
[2020-12-18] MEDS: DOXYCYCLINE HYCLATE 100 MG CAP PO SCH ×2 (08:58→20:01)
[2020-12-18] MEDS: ATORVASTATIN 20 MG TAB PO SCH (08:58)
[2020-12-18] MEDS: SODIUM CHLORIDE 0.9% 10ML FLUSH IV SCH (11:25)
[2020-12-18] MEDS: REMDESIVIR 100 MG in SODIUM CHLORIDE 0.9% 230 ML IV SCH (11:25)
--- NOTE | 2020-12-19 02:09 | Hospitalist Progress Note ---
Date of Service December 18, 2020 Assessment & Plan (1) Acute hypoxemic respiratory failure: Plan: Present on admission with worsening SOB Testing positive with COVID 19 CXR showed cardiomegaly with left greater than right bilateral pulmonary opacities suggestive of multifocal pneumonia. Received Dexamethasone 10mg IV and Doxycycline Continue Remdesivir and Decadron 6 mg daily Continue monitor liver enzymes while on Remdesivir` Inflammatory marker such as ESR 30, CRP 1.86 Ferritin 1469 and procalcitonin negative Pt was advised to continue proning Patient was weaned off the oxygen today Will give lasix 20mg x1 today Hypokalemia K 3.8 today Continue monitor BMP Hx recurrent DVTPE Continue Lovenox subq px Hypertension BP stable DVT prophylaxis per Lovenox subcu Full code Disposition Discharge home tomorrow if stable Admission and Anticipated Discharge Date Admission Date: December 16, 2020 Subjective Pt was seen and examined for follow up of SOB due to COVID 19 Sitting in chair comfortable watching TV with no acute distress He Is saturating well on room air He said that he is feeling much better Denies any chest pain, palpitation, dizziness, and fever Review of Systems Review of Systems: All systems reviewed & are unremarkable except as noted in Subjective Physical Exam Physical Exam: General- No acute distress Head- atraumatic Eyes- PERRL, EOMI, ENT- oropharynx clear Neck- supple, no JVD Lungs- Diminished breath sound Heart- regular rhythm; no murmur Abdomen- normal bowel sounds, soft, nontender Extremities- no calf tenderness Neuro- alert, oriented x 3; PERRL, EOMI; no facial palsy; no dysarthria Skin- warm & dry Results & Data Results & Data ([facility]) Vital Signs (Past 12 Hours) Vital Signs Temp Pulse Pulse Pulse Resp BP Pulse Ox 12/18/20 23:02 36.5 C 53 L 16 119/66 92 12/18/20 22:42 58 L 20 94 12/18/20 19:37 36.9 C 58 L 20 125/71 91 12/18/20 15:54 36.7 C 64 21 115/76 91
[2020-12-19 08:17] LABS: Creatinine Clr Calc Pharmacy 134.8 ml/min; Est GFR (African American) 118.2 ml/min
[2020-12-19] MEDS: dexAMETHasone 6 MG in SYRINGE 0 ML IV SCH (08:39)
[2020-12-19] MEDS: ATORVASTATIN 20 MG TAB PO SCH (08:42)
[2020-12-19] MEDS: SERTRALINE HCL 100 MG TABLET PO SCH (08:42)
[2020-12-19] MEDS: ENOXAPARIN INJ 40 MG/0.4 ML SYR SQ SCH (08:42)
[2020-12-19] MEDS: DOXYCYCLINE HYCLATE 100 MG CAP PO SCH (08:42)
[2020-12-19] MEDS: LOSARTAN POTASSIUM 50 MG TAB PO SCH (08:42)
[2020-12-19] MEDS: REMDESIVIR 100 MG in SODIUM CHLORIDE 0.9% 230 ML IV SCH (12:23)
[2020-12-19] MEDS: SODIUM CHLORIDE 0.9% 10ML FLUSH IV SCH (13:46)
--- NOTE | 2020-12-19 18:05 | Discharge Summary ---
Date of Service December 19, 2020 Admission HPI Per Admitting Provider History obtained from patient and records. Medical history significant for hypertension, recurrent PE/DVT status post anticoagulation, prediabetes, osteoarthritis, MARTA on CPAP, past tobacco abuse. Last confinement February 2014 under Orthopedics services for right shoulder surgery. 1 week history of junky cough symptoms, fever, chills, achy headache, loose stools, without abdominal pain with some shortness of breath. Possible COVID-19 contacts at work. Patient has had 1 dose of COVID-19 vaccine. COVID-19 test at urgent care center from 5 days ago was positive. Supportive care recommended by PCP's office. Patient consulted ER for worsening symptoms. O2 sats 80s at 1 point at the ER. Decadron given at the ER. 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 Admission Exam Per Admitting Provider GENERAL: Comfortable, pleasant, obese, no respiratory distress SKIN: Normal color, warm HEENT: Alopecia, [place] palpebral conjunctivae, no ptosis, dry buccal mucosa, nasal cannula in place NECK : Supple, short neck, no tenderness CHEST : Decreased breath sounds, no tenderness HEART : RRR, no obvious murmurs ABDOMEN: Some distention, nontender EXTREMITIES : Minimal LE swelling, no LE tenderness, no other conspicuous deformities noted NEUROLOGIC : Coherent, no facial asymmetry, no other gross focality Principal Diagnosis Acute hypoxemic respiratory failure: Hypokalemia Hx recurrent DVT/PE Hypertension Discharge Exam General- No acute distress Head- atraumatic Eyes- PERRL, EOMI, ENT- oropharynx clear Neck- supple, no JVD Lungs- Diminished breath sound Heart- regular rhythm; no murmur Abdomen- normal bowel sounds, soft, nontender Extremities- no calf tenderness Neuro- alert, oriented x 3; PERRL, EOMI; no facial palsy; no dysarthria Skin- warm & dry Discharge Data Allergies Allergy/AdvReac Type Severity Reaction Status Date / Time GATITO Inhibitors AdvReac Severe Cough Unverified 12/16/20 07:10 Consultations 12/16/20 04:54 ED Decision to Admit Stat Ordered Studies XR chest 1V portable HISTORY: 55 years-old Male SEPSIS acute sepsis COMPARISON: Chest radiograph and CTA chest 02/28/2014 TECHNIQUE: Portable AP view of the chest FINDINGS: Cardiac silhouette is enlarged. Pulmonary vascular congestion with reticular interstitial opacities. Ill-defined airspace densities are notably present throughout the left lung. Blunting of the costophrenic angles. No pneumothorax. Degenerative changes of the spine and left shoulder. Right shoulder total joint arthroplasty. IMPRESSION: Cardiomegaly with left greater than right bilateral pulmonary opacities suggestive of multifocal pneumonia. ACT 112: Negative or not required by law. The above report was generated using voice recognition software. It may contain grammatical, syntax or spelling errors. Electronically signed by: Walter Jimenez M.D. 12/16/2020 7:39 AM Dictated: 12/16/20736Transcribed: 12/16/20736 Hospital Course (1) Acute hypoxemic respiratory failure: Present on admission with worsening SOB Testing positive with COVID 19 CXR showed cardiomegaly with left greater than right bilateral pulmonary opacities suggestive of multifocal pneumonia. Received Dexamethasone 10mg IV and Doxycycline Continue Remdesivir and Decadron 6 mg daily Continue monitor liver enzymes while on Remdesivir` Inflammatory marker such as ESR 30, CRP 1.86 Ferritin 1469 and procalcitonin negative Pt was advised to continue proning Patient was weaned off the oxygen today Lasix given the last 2 days 2 step exercise done and pt requires 2 L NC with ambulation Script given to lining caser to arrange for oxygen supplement Hypokalemia K 3.8 today Continue monitor BMP Hx recurrent DVTPE Continue Lovenox subq px Hypertension BP stable DVT prophylaxis per Lovenox subcu Full code Disposition Discharge home today Total Time Total Time Spent Total Time Spent (In Minutes): 35 minutes Discharge Plan Discharge Items Patient Disposition: Home - Self-Care Reason For Visit: COVID+ ON FRIDAY RESP FAILURE Discharge Diagnosis: Acute hypoxemic respiratory failure: Hypokalemia Hx recurrent DVT/PE Hypertension Activity: Resume your previous activity Non-emergency contact: Primary Care Provider Call non-emergency contact if: your temperature is above 101 Follow-up/Referrals: Tadeo Montes DO [Primary Care Provider] - (Date & Time 12/26/2020 1:40 PM Provider Tadeo Montes DO Department Family [facility] PLEASE NOTE THAT THIS IS A TELEHEALTH APPOINTMENT. PLEASE FOLLOW THE INSTRUCTIONS PROVIDED IN YOUR EMAIL. IF YOU HAVE ANY QUESTIONS REGARDING THIS APPOINTMENT, PLEASE CALL ) Diet: Heart Healthy Addtl Attending Provider Instructions: 12/26/2020 1:40 PM Provider Tadeo Montes DO Department Family Practice [facility] PLEASE NOTE THAT THIS IS A TELEHEALTH APPOINTMENT. PLEASE FOLLOW THE INSTRUCTIONS PROVIDED IN YOUR EMAIL. IF YOU HAVE ANY QUESTIONS REGARDING THIS APPOINTMENT, PLEASE CALL Increase potassium intake in your diet Continue oxygen supplement with 2 liter nasal canula with activities/ambulation Seek medical attention if your symptoms worsening Continue to wear your mask and practice social distance Continue home isolation for 14 days from the date that you tested positive for COVID 19 Home Isolation COVID-19 Instructions The following information about Home Isolation is from the CDC Website: https://www.cdc.gov/coronavirus/2019-ncov/hcp/mugmhkmv-gcpfxnu-mjfsin.html Stay home except to get medical care People who are mildly ill with COVID-19 are able to isolate at home during their illness. You should restrict activities outside your home, except for getting medical care. Do not go to work, school, or public areas. Avoid using public transportation, ride-sharing, or taxis. Separate yourself from other people and animals in your home People: As much as possible, you should stay in a specific room and away from other people in your home. Also, you should use a separate bathroom, if available. Animals: You should restrict contact with pets and other animals while you are sick with COVID-19, just like you would around other people. Although there have not been reports of pets or other animals becoming sick with COVID-19, it is still recommended that people sick with COVID-19 limit contact with animals until more information is known about the virus. When possible, have another member of your household care for your animals while you are sick. If you are sick with COVID-19, avoid contact with your pet, including petting, snuggling, being kissed or licked, and sharing food. If you must care for your pet or be around animals while you are sick, wash your hands before and after you interact with pets and wear a face mask. Call ahead before visiting your doctor If you have a medical appointment, call the healthcare provider and tell them that you have or may have COVID-19. This will help the healthcare providers office take steps to keep other people from getting infected or exposed. Wear a face mask You should wear a face mask when you are around other people (e.g., sharing a room or vehicle) or pets and before you enter a healthcare providers office. If you are not able to wear a face mask (for example, because it causes trouble breathing), then people who live with you should not stay in the same room with you, or they should wear a face mask if they enter your room. Cover your coughs and sneezes Cover your mouth and nose with a tissue when you cough or sneeze. Throw used tissues in a lined trash can. Immediately wash your hands with soap and water for at least 20 seconds or, if soap and water are not available, clean your hands with an alcohol-based hand skip operator that contains at least 60% alcohol. Clean your hands often Wash your hands often with soap and water for at least 20 seconds, especially after blowing your nose, coughing, or sneezing; going to the bathroom; and before eating or preparing food. If soap and water are not readily available, use an alcohol-based hand skip operator with at least 60% alcohol, covering all surfaces of your hands and rubbing them together until they feel dry. Soap and water are the best option if hands are visibly dirty. Avoid touching your eyes, nose, and mouth with unwashed hands. Avoid sharing personal household items You should not share dishes, drinking glasses, cups, eating utensils, towels, or bedding with other people or pets in your home. After using these items, they should be washed thoroughly with soap and water. Clean all high-touch surfaces everyday High touch surfaces include counters, tabletops, doorknobs, bathroom fixtures, toilets, phones, keyboards, tablets, and bedside tables. Also, clean any surfaces that may have blood, stool, or body fluids on them. Use a household cleaning spray or wipe, according to the label instructions. Labels contain instructions for safe and effective use of the cleaning product including precautions you should take when applying the product, such as wearing gloves and making sure you have good ventilation during use of the product. Monitor your symptoms Seek prompt medical attention if your illness is worsening (e.g., difficulty breathing).Beforeseeking care, call your healthcare provider and tell them that you have, or are being evaluated for, COVID-19. Put on a face mask before you enter the facility. These steps will help the healthcare providers office to keep other people in the office or waiting room from getting infected or exposed. Ask your healthcare provider to call the local or state health department. Persons who are placed under active monitoring or facilitated self- monitoring should follow instructions provided by their local health department or occupational health professionals, as appropriate. When working with your local health department check their available hours. If you have a medical emergency and need to call 911, notify the dispatch personnel that you have, or are being evaluated for COVID-19. If possible, put on a face mask before emergency medical services arrive. Discontinuing home isolation Patients with confirmed COVID-19 should remain under home isolation precautions until the risk of secondary transmission to others is thought to be low. The decision to discontinue home isolation precautions should be made on a iqat-jx-xbij basis, in consultation with healthcare providers and formerly [facility] and [facility] health departments. Coronavirus disease 2019 (COVID-19) is a virus that causes a respiratory illness. It is caused by a coronavirus called 2019 novel coronavirus (2019- nCoV). There are many types of coronavirus. Coronaviruses are a very common cause of bronchitis. They may sometimes cause lung infection(pneumonia). Symptoms can range from mild to severe respiratory illness. These viruses are also foundin some animals. COVID-19 was first found in people in [facility], in late 2019. In 2020, several cases of COVID-19 have been confirmed in the [place] Public health officials are working to find the source. How the virus spreads is not yet fully known. It may be spread through droplets of fluid that a person coughs or sneezes into the air. It may be spread if you touch a surface with virus on it, such as a handle or object, and then touch your mouth. What are the symptoms of COVID-19? Some people have no symptoms or mild symptoms. Symptoms may appear 2 to 14 days after contact with the virus. Symptoms can include: Fever Coughing Trouble breathing What are possible complications from COVID-19? In many cases, this virus can cause infection (pneumonia) in both lungs. In some cases, this can cause . How is COVID-19 diagnosed? Your healthcare provider will ask about your symptoms. He or she will also ask about your recent travel and contact with sick people. Testing for the virus is only done through the CDC. If yourhealthcare provider thinks you may have COVID- 19, he or she will work with your local health department and the CDC on testing. Follow all instructions from your healthcare provider. COVID-19 is diagnosed by: Nasal and throat swab. A cotton-tipped swab is wiped inside your nose or throat. This is done to check for viruses in your nasal mucus. Sputum culture. A small sample of mucus coughed from your lungs (sputum) is collected if you have a cough. It is checked for the virus. How is COVID-19 treated? There is currently no medicine to treat the virus. Treatment is done to help your body while it fights the virus. This is known as supportive care. Supportive care may include: Pain medicine. These include acetaminophen and ibuprofen. They are used to help ease pain and reduce fever. Bed rest. This helps your body fight the illness. For severe illness, you may need to stay in the hospital. Care during severe illness may include: IV (intravenous) fluids.These are given through a vein to help keep your body hydrated. Oxygen. Supplemental oxygen or ventilation with a breathing machine (ventilator) may be given. This is done to keep enough oxygen in your body. Are you at risk for COVID-19? If youve been to a place where people have been sick with this virus, you are at risk for infection. You are at risk if you: Recently traveled to an affected area Had contact with a sick person who recently traveled to this area Had contact with a person who was diagnosed with COVID-19 How can COVID-19 be prevented? There is no vaccine yet. The best prevention is to not have contact with the virus. The CDC advises that people should not travel to areas where there are COVID-19 outbreaks right now for any reason that is not urgent. To help prevent spreading the infection, wash your hands often, or use an alcohol-basedhand skip operator. If you are in an area with COVID-19: Wash your hands often. Or use an alcohol-based hand skip operator often. Only touch your eyes, nose, or mouth with clean hands. Dont have contact with people who are sick. Follow local instructions about being in public. For example, you may be told to not use public transport for a period of time. Stay away from markets that have live or animals. Wash your hands after touching any animals. Don't touch animals that may be sick. Dont share eating or drinking tools with sick people. Dont kiss someone who is sick. Clean surfaces often with disinfectant. If you were in an area with COVID-19 in the last 14 days: Call your healthcare provider. He or she can talk with local health staff to see what action may be needed. Follow all instructions from your provider. Take your temperature every morning and evening for at least 14 days. This is to check for fever. Keep a record of the readings. Keep watch for symptoms of the virus. Tell your provider right away if you have symptoms. If you were in an area with COVID-19 and have a fever or other symptoms: Dont panic. Keep in mind that other illnesses can cause similar symptoms. Stay away from work, school, and public places. Limit physical contact with family members. Don't kiss anyone or share eating or drinking utensils. Clean surfaces you touch with disinfectant. This is to help prevent the virus from spreading. Call your healthcare provider. Explain that you have been exposed to COVID-19 and have symptoms. Do this before going to any hospital. Wait for instructions. Keep in mind that healthcare staff may wear protective equipment such as masks, gowns, gloves, and eye protection. You may be put in a separate room. This is to prevent the possible virus from spreading. Tell the healthcare staff about recent travel. This includes local travel on public transport. Staff may need to find other people you have been in contact with. Follow all instructions the healthcare staff give you. If you have been diagnosed with COVID-19 Follow all instructions from your healthcare provider. Dont leave your home, except to get medical care. Call your healthcare providers office before going. They can prepare and give you instructions. This will help prevent the virus from spreading. Dont go to work, school, or public areas. Dont use public transport or taxis. Stay away from other people in your home. Have them wear face masks around you. Dont share household items or food. Wear a face mask if you can. This includes at home or in a medical facility. Cover your face with a tissue when you cough or sneeze. Throw the tissue away. Wash your hands. Wash your hands often. Caregivers should: Follow all instructions from healthcare staff. Wear a face mask and protective clothing as advised. Wash hands often. Keep track of the sick persons symptoms. Clean surfaces, fabrics, and laundry thoroughly. Keep other people away from the sick person. When to call your healthcare provider Call your healthcare provider: If youve recently traveled and have symptoms If you have been diagnosed with COVID-19 and your symptoms are worse To learn more To find out more about COVID-19, visit the CDC website at www.cdc.gov/coronavirus/2019-ncov/index.html. [employer]. [address] [place] [address]. All rights reserved. This information is not intended as a substitute for professional medical care. Always follow your healthcare professional's instructions. This information has been adapted from [employer] Pending Studies at Discharge: No Stand-Alone Forms: [facility], Smoking Cessation Medications and DC Order Prescriptions: Continued atorvastatin 20 mg tablet 20 mg PO DAILY RF: 0 sertraline 100 mg tablet 100 mg PO DAILY RF: 0 losartan-hydrochlorothiazide 100-25 mg tablet 1 tab PO DAILY RF: 0 metformin 500 mg Tablet 500 mg PO BIDM RF: 0 acetaminophen [Tylenol] 325 mg Tablet 650 mg PO QID PRN (Reason: fever/pain) RF: 0 Discharge Orders: Discharge Order (Routine); Ordered 12/19/20 Ordered By: Maria Victoria Christie Admission Data Admit Date/Time: 12/16/20 05:50 Attending Provider: Maria Victoria Christie Admit Provider: Mello Henning Primary Care Provider: Tadeo Montes Other Providers: Mello Henning Other Interventions: Discharge Summary Assessment (RN) Last Done: 12/19/20 18:15
--- NOTE | 2020-12-27 09:44 | Coding Query ---
CODING QUERY To promote full compliance with coding requirements relating to patient care, provider participation is requested in all cases of title examiner uncertainty. Please assist us with the question(s) below: Coding Question(s): Patient admitted Covid posiitive ; Discharge Summary documents 'multifocal ' pneumonia. H/P documented COVID pneumonia and bacterial pneumonia. Please document, if known or suspected, the type of pneumonia responsible for this Inpatient Stay. Thank you. Williams Condon [facility] Physician's Response(s): COVID 19 pneumonia Principal Diagnosis: "that condition established after study, to be chiefly responsible for occasioning the admission of the patient to the hospital for care." Co-Existing Principal Diagnosis: "when two or more diagnoses equally meet the criteria for principal diagnosis as determined by the circumstances of admission, diagnostic work up, and/or therapy provided, and the Alphabetic Index, Tabular List, or another coding guideline does not provide sequencing direction, any one of the diagnoses may be sequenced first." "When the physician has documented what appears to be a current diagnosis in the body of the record, but has not included the diagnosis in the final diagnostic statement, the physician should be asked whether the diagnosis should be added." (Source Coding [facility] 2 QTR90. p3-4) JUJU
== END 2020-12-19 18:37 | disposition home or self-care (01) | DRG 177 ==
LOC: ED 02:04 → 2E 05:50
DX: Z79.84 Long term (current) use of oral hypoglycemic drugs; G47.33 Obstructive sleep apnea (adult) (pediatric); I10 Essential (primary) hypertension; Z83.3 Family history of diabetes mellitus; J96.01 Acute respiratory failure with hypoxia; F17.220 Nicotine dependence, chewing tobacco, uncomplicated; Z87.891 Personal history of nicotine dependence; Z86.718 Personal history of other venous thrombosis and embolism; E87.6 Hypokalemia; Z86.711 Personal history of pulmonary embolism; U07.1 COVID-19; J12.82 Pneumonia due to coronavirus disease 2019; R73.03 Prediabetes

== ENCOUNTER 2021-10-10 06:44 | Observation (INO) ==
--- NOTE | 2021-09-11 11:50 | PAT Medication Instructions ---
Medication Instructions Date of Service September 11, 2021 Home Medications acetaminophen 325 mg tablet (Tylenol) 650 mg PO QID PRN atorvastatin 20 mg tablet 20 mg PO QAM losartan 100 mg-hydrochlorothiazide 25 mg tablet 1 tab PO QAM metformin 500 mg tablet 500 mg PO BID sertraline 100 mg tablet 100 mg PO QAM DO NOT take the morning of surgery losartan 100 mg-hydrochlorothiazide 25 mg tablet 1 tab PO QAM metformin 500 mg tablet 500 mg PO BID Take morning of surgery With a small sip of water, OTHERWISE NOTHING TO EAT OR DRINK AFTER MIDNIGHT: acetaminophen 325 mg tablet (Tylenol) 650 mg PO QID PRN(if needed) atorvastatin 20 mg tablet 20 mg PO QAM sertraline 100 mg tablet 100 mg PO QAM Take evening before surgery acetaminophen 325 mg tablet (Tylenol) 650 mg PO QID PRN(if needed) metformin 500 mg tablet 500 mg PO BID Other Notes If you have any questions please call us at [phone] or [phone] or [phone] or [phone]
--- NOTE | 2021-09-13 11:33 | Anesthesiology Consultation ---
Date of Service September 13, 2021 Assessment & Plan (1) Encounter for pre-operative examination: - check BSG am DOS. - PCP clearance per records scheduled 09/18/21. - COVID screening: Per assessment on 09/13/2021: Travel screen negative, no known COVID-19 positive contacts or current COVID-19 related symptoms in past 2 weeks. Surgeon arranging preop COVID testing, /2021. Awaiting results. Chart Review Chart Review: Acceptable Risk for Surgery and Patient seen in Pre Admission Testing Teaching & Discussion Pre-Anesthesia Teaching/Discussion Notes: Instructed NPO after midnight before surgery, except medications with 15 cc of water. Medication instructions provided according to the PAT guidelines. History Surgery Operation Date: 10/10/21 11:45 Proposed Procedures p Right Total Hip Arthroplasty - Bg Mathis DO Height/Weight Height: 5 ft 8 in Weight: 117.5 kg Allergies Allergy/AdvReac Type Severity Reaction Status Date / Time GATITO Inhibitors AdvReac Severe Cough Unverified 09/10/21 15:39 Medications Home Medications Medication Instructions Recorded Confirmed Last Taken acetaminophen 325 mg tablet 650 mg PO QID PRN 12/16/20 09/10/21 12/15/20 21:00 (Tylenol) 2 tabs atorvastatin 20 mg tablet 20 mg PO QAM 12/16/20 09/10/21 12/15/20 losartan 100 1 tab PO QAM 12/16/20 09/10/21 12/15/20 mg-hydrochlorothiazide 25 mg tablet metformin 500 mg tablet 500 mg PO BIDM 12/16/20 09/10/21 12/15/20 sertraline 100 mg tablet 100 mg PO QAM 12/16/20 09/10/21 12/15/20 Past Medical History Medical History (Updated 09/13/21 @ 11:50 by Sri Watts PA-C) Bowel perforation (~2013) s/p shoulder surgery Deep vein thrombosis "" s/p knee trauma Depression Diabetes mellitus, type 2 NIDDM Diverticular disease History of COVID-19 12/16/20 treated at [facility] inpatient. no ventilator needed. Hyperlipidemia Hypertension controlled, stable per pt Pulmonary embolism s/p shoulder surgery ~2013 Sleep apnea cpap nightly Patient denies h/o stroke, seizures, heart attack, heart failure or blood transfusions. Exercise / Class Metabolic Activity II 4-5 Yardwork/Stairs/Walk up hill (denies CP or SOB with 1 FOS) Past Family History Family History Father FHx: suicide Other No family history of adverse response to anesthesia Past Surgical History Surgical History History of colectomy (~2013) perforation s/p shoulder surgery r/t hx diverticulitis History of colonoscopy S/P left knee arthroscopy S/P right knee arthroscopy S/P shoulder replacement right shoulder Past Anesthesia History No Hx of Anesthesia Complications and No Family Hx of Anesthesia Complications History of PONV No Hx of PONV and No Hx of Motion Sickness Social History Smoking Status: Never smoker tobacco type: smokeless tobacco Do You Dip or Chew Tobacco: Yes (1 can/2 days (advised)) Hx Alcohol Use: No Hx Substance Use: No substance use type: does not use Review of Systems Patient denies chest pain, shortness of breath, dyspnea on exertion, reflux, fever, chills, cough, wheezing, or palpitations. Physical Exam Vital Signs Vitals BP 130/83 P 71 TEMP 98.8 SP02 94% on RA RESP 17 Physical Full cervical extension range of motion without pain TMD 3.5 finger breaths Mallampati Score 3 Dentition: intact, one missing tooth lower side; denies chipped or loose teeth, caps/crowns, implants or bridges Lungs: normal respiratory effort. Clear throughout to auscultation, no adventitious breath sounds Cardiac: regular rate and rhythm, no murmurs noted Carotid arteries: negative bruit bilat Lab Results Anesthesia Preop Results Results Anesthesia Widget: WBC 6.80 K/uL (4.8-10.8) 09/13/21 Hgb 14.5 g/dL (14.0-18.0) 09/13/21 Hct 41.5 % (42-52) L 09/13/21 Plt 207 K/uL (130-400) 09/13/21 Na 141 mmol/L (136-145) 09/13/21 K 3.8 mmol/L (3.5-5.1) 09/13/21 Cl 103 mmol/L (98-107) 09/13/21 CO2 32 mmol/L (21-32) 09/13/21 BUN 18 mg/dl (6-23) 09/13/21 Creat 1.02 mg/dl (0.6-1.4) 09/13/21 Glucose Level 109 mg/dl (70-99(Fasting)) H 09/13/21 PT 10.3 Seconds (9.0-12.0) 09/13/21 PTT 25.0 Seconds (21.0-31.0) 09/13/21 INR 1.0 (0.9-1.1) 09/13/21 HA1c 6.1 % (4.5-5.6) H 09/13/21 Urine Color Yellow 09/13/21 Urine Appearance Clear (Clear) 09/13/21 Urine pH 5.0 (4.5-7.5) 09/13/21 Urine Specific Copen 1.023 (1.000-1.030) 09/13/21 Urine Protein Negative (Negative) 09/13/21 Urine Glucose (UA) Negative (Negative) 09/13/21 Urine Ketones Negative (Negative) 09/13/21 Urine Blood Negative (Negative) 09/13/21 Urine Nitrite Negative (Negative) 09/13/21 Urine Bilirubin Negative (Negative) 09/13/21 Urine Urobilinogen Negative (Negative) 09/13/21 Urine Leukocyte Esterase Negative (Negative) 09/13/21 Blood Type A Positive 09/13/21 Antibody Screen NEGATIVE 09/13/21 Testing Electrocardiogram Date: 12/16/20 NSR, rate 89 bpm Left axis deviation Nonspecific T wave abnormality Chest X-Ray Date: 09/13/21 The cardiomediastinal and hilar silhouettes are within normal limits. No pneumothorax, pleural effusion, airspace consolidation or overt pulmonary edema. The patient is rotated on the lateral view. Severe left glenohumeral osteoarthritis with right shoulder total joint arthroplasty. IMPRESSION: No acute process.
[~2021-10-10 06:44] MED LIST: ACETAMINOPHEN 500 MG TAB PO SCH; BUPIVACAINE 0.5 % 5 MG/1 ML PF 10ML VIAL ONE; CeleBREX 200 MG CAP PO SCH; FAMOTIDINE 20 MG TAB PO SCH; GABAPENTIN 600 MG DOSE PO SCH; LR 500ML BOLUS, THEN 15ML/HR IV SCH; METOCLOPRAMIDE HCL 10 MG TABLET PO SCH; ROPIVACAINE 0.5% HCL/PF 150 MG, BUPIVACAINE 0.75% MPF 20 ML, EPINEPHrine 30MG/30ML (OR ... INFIL SCH; ceFAZolin 2000MG 2,000 MG/15 ML SYR IV SCH; dexAMETHasone 4 MG TAB PO SCH
--- NOTE | 2021-10-10 07:25 | History & Physical Bridge Note ---
Date of Service October 10, 2021 History & Physical Bridge Note I have examined the patient, reviewed the History & Physical and in the interval since the performance of the History & Physical I have noted the following changes of clinical significance: no changes noted
--- NOTE | 2021-10-10 07:39 | History & Physical Report ---
Date of Service October 10, 2021 Assessment & Plan (1) Osteoarthritis of right hip: Plan: Schedule a right total hip arthroplasty for 10/10/2021. All potential risks, benefits, complications, alternatives, and rehab have been discussed with the patient and he wishes to proceed. Patient has a previous history of DVT and pulmonary embolism so he will be placed on Eliquis 2.5 mg twice daily x30 days for postoperative DVT prophylaxis. History of Present Illness Chief Complaint: Right hip pain Primary Care Provider: Tadeo Montes DO This is a patient who is a chronic history of right hip and groin pain. X-rays revealed right hip osteoarthritis. He was treated conservatively for hip osteoarthritis however he is failed all conservative management. He is now being set up for surgical treatment. Allergies Allergy/AdvReac Type Severity Reaction Status Date / Time GATITO Inhibitors AdvReac Severe Cough Verified 10/10/21 07:10 Home Medications Medication Instructions Recorded Confirmed Type acetaminophen 325 mg tablet 650 mg PO QID PRN fever/pain 12/16/20 10/10/21 History (Tylenol) atorvastatin 20 mg tablet 20 mg PO QAM 12/16/20 10/10/21 History losartan 100 1 tab PO QAM 12/16/20 10/10/21 History mg-hydrochlorothiazide 25 mg tablet metformin 500 mg tablet 500 mg PO BIDM 12/16/20 10/10/21 History sertraline 100 mg tablet 100 mg PO QAM 12/16/20 10/10/21 History Past Med/Surg History Medical History Bowel perforation (~2013) s/p shoulder surgery Deep vein thrombosis "" s/p knee trauma Depression Diabetes mellitus, type 2 NIDDM Diverticular disease History of COVID-19 12/16/20 treated at [facility] inpatient. no ventilator needed. Hyperlipidemia Hypertension controlled, stable per pt Pulmonary embolism s/p shoulder surgery ~2013 Sleep apnea cpap nightly Surgical History History of colectomy (~2013) perforation s/p shoulder surgery r/t hx diverticulitis History of colonoscopy S/P left knee arthroscopy S/P right knee arthroscopy S/P shoulder replacement right shoulder Family History Father FHx: suicide Other No family history of adverse response to anesthesia Social History Smoking Status: Never smoker Second Hand Exposure: No; Do You Dip or Chew Tobacco: Yes (1 can/2 days (advised)); Tobacco Cessation Education Requested by Patient: No Hx Alcohol Use: No Hx Substance Use: No Preferred Language: Ethiopian Communication Ability: Effective Parks Worker Required: No Beliefs That Will Affect Care: None Current Living Situation: Alone Other Information That Helps Us Care for You: No Feels Safe at Home: Yes Safety Concerns: Feels Safe At This Time Assistive Devices: CPAP and Glasses Physical Exam Constitutional: WD/WN, vitals as above no acute distress ENMT: external ear and nose normal, oropharynx normal Neck: trachea midline Respiratory: normal respiratory effort, lungs clear to auscultation Cardiovascular: Rate/Rhythm: regular rate and regular rhythm Gastrointestinal (Abdomen): normal bowel sounds, soft, nontender, no hepatosplenomegaly Musculoskeletal: Hip: + limited ROM of hip (Right internal and external rotation), + joint line tenderness (Right groin) and + LEA test positive (Right); no deformity, no skin erythema and no ecchymosis Skin: no rashes, warm and dry Trauma: no evidence of skin trauma Neurologic: normal touch/pain/proprioception Psychiatric: A+Ox3, euthymic affect Speech: normal rate/rhythm/volume of speech Lymphatic: no cervical or axillary lymphadenopathy Results & Data ([facility]) Vital Signs (Past 12 Hours) Vital Signs Temp Pulse Resp BP Pulse Ox O2 Del Method 10/10/21 07:03 37.1 C 78 20 141/89 H 93 Room Air
[2021-10-10] MEDS ORDERED: TRANEXAMIC ACID / 0.7% NACL 1000MG/100ML BAG IV ONE (08:34)
[2021-10-10] MEDS ORDERED: ATROPINE SULFATE 0.1 MG/ML 10ML SYR IV PRN (08:47)
[2021-10-10] MEDS ORDERED: ONDANSETRON INJ 2 MG/ML 2 ML VIAL IV PRN ×2 (08:47→14:22)
[2021-10-10] MEDS ORDERED: fentaNYL citrate 100 MCG/2 ML VIAL IV PRN (08:47)
[2021-10-10] MEDS ORDERED: ePHEDrine sulfate 50 MG/ML AMP IV PRN (08:47)
[2021-10-10] MEDS ORDERED: MIDAZOLAM HCL 1 MG/ML 2ML VIAL ONE (08:53)
[2021-10-10] MEDS ORDERED: ONDANSETRON INJ 2 MG/ML 2 ML VIAL ONE (08:53)
[2021-10-10] MEDS ORDERED: LIDOCAINE 2% 20 MG/ML 5 ML SYR IV ONE (08:53)
[2021-10-10] MEDS ORDERED: PROPOFOL IV EMULSION 10 MG/ML 20 ML VIAL IV ONE ×8 (08:53→12:12)
[2021-10-10] MEDS ORDERED: DEXAMETHASONE SOD INJ 4 MG/ML VIAL ONE (08:53)
[2021-10-10] MEDS ORDERED: fentaNYL citrate 100 MCG/2 ML VIAL ONE (08:54)
[2021-10-10] MEDS ORDERED: ORTHO JOINT ANESTHETIC ONE (09:26)
[2021-10-10] MEDS ORDERED: POVIDONE-IODINE 10% OINT 30 GM TUBE ONE (09:39)
--- NOTE | 2021-10-10 12:44 | Post Operative Brief Note ---
Immediate Post Op Note v1 Date of Surgery October 10, 2021 Pre & Post Diagnosis Operation Date: 10/10/21 09:05 Pre-Op Diagnosis: Right Hip Osteoarthritis, right hip pain Post-Op Diagnosis: Right Hip Osteoarthritis, right hip pain I identified the patient and participated in the time-out.: Yes Procedure Operation Date: 10/10/21 09:05 Actual Procedures p Right Total Hip Arthroplasty press-fit [place] Accolade 2 size 5, Biolox delta ceramic femoral head +0 mm neck length, Trident 2 acetabular shell 58 mm diameter, Trident X3 10 degree polyliner, 6.5 mm low-profile hex screws x2. (Right) - Bg Mathis DO Surgeon Bg Mathis DO Hardboard Factory Worker Almas Barrow PA-C Estimated Blood Loss 100 Findings Consistent with Post-Op Diagnosis Specimens Bone and tissue right hip Drains Hemovac Drain Anesthesia Type MAC Spinal Regional Complications none Disposition Accompanied Patient To Recovery: No Overlapping Procedure I was present for: the critical portions of procedure. I was immediately available: during the entire case.
--- NOTE | 2021-10-10 13:19 | Operative Report (OR) ---
DATE OF PROCEDURE: 10/10/2021. PREOPERATIVE DIAGNOSES: 1. Right hip osteoarthritis. 2. Right hip pain. 3. Body mass index of 35-39. POSTOPERATIVE DIAGNOSES: 1. Right hip osteoarthritis. 2. Right hip pain. 3. Body mass index of 35-39. PROCEDURE PERFORMED: 1. Right total hip arthroplasty using a size 5 Accolade II femoral stem press- fit, a 58 mm Tritanium acetabular shell, 6.5 mm low-profile hex screws x2, X3 polyethylene liner with a 10-degree raised edge, +0 neck Biolox Delta ceramic head. 2. Enhanced surgical difficulty due to high BMI. SURGEON: Bg Mathis DO. ALL PURPOSE CLERK: Almas Barrow PA-C who was present for patient positioning, sterile prep and drape, management of retractors and instruments. He was present through the critical portions of the case including wound closure, application of sterile dressing and transport of the patient to recovery. Extra time and effort required to manage retractors and assist with dissection due to the enlarged body habitus and high BMI. ANESTHESIA: Spinal MAC, regional. SPECIMENS: Bone and tissue, right hip. DRAINS: Hemovac x2. COMPLICATIONS: None. See modifier 22. BLOOD LOSS: 100 mL. PERTINENT HISTORY: This is a 56-year-old gentleman who has had chronic progressive and worsening right hip pain over the last 3-5 years. He has attempted and failed conservative management including physician-directed home exercises, activity modification, anti-inflammatories, rest, steroid injections, and shoe wear modification in addition to observation and rest. Radiographs demonstrate end-stage degenerative arthritis of right hip with [id number] apposition, marginal osteophytes, subchondral sclerosis, and subchondral cysts. The patient was scheduled for surgery as indicated. All potential risks, benefits, complications, alternatives, rehab potential for incomplete relief of symptoms, need for further surgery, DVT, PE, , persistent pain, swelling, scarring, weakness, neurovascular injury, wound complications, hardware failure, nonunion, malunion, bone fracture were discussed with the patient. The patient decided to proceed with the procedure as indicated. DESCRIPTION OF PROCEDURE: The patient was taken to the Operating Suite and placed supine on the Operating Room table. After identification of the consent and identification of the proper operative site, the patient was sedated. The patient had previously received a spinal epidural anesthetic. The patient was then placed in the left lateral decubitus position with the affected side up and Stulberg positioning device then used to maintain lateral position of the patient. All bony prominences were properly padded and protected. Axillary roll was placed as standard and the leg lengths were determined to be essentially equal and then the right hip was then sterilely prepped and draped in the usual fashion. An elongated 10-blade scalpel incision was made laterally over the greater trochanter. The incision had to be enlarged to accommodate for the anticipated thickness of the subcutaneous adipose tissue. This required a greater amount of surgical time and effort. The incision was deepened through the significantly deep layer of subcutaneous tissue requiring significantly increased surgical time and increased surgical effort with use of electrocautery, multiple larger retractors and meticulous hemostasis with electrocautery. Further deepening of the incision through the layer of the fascia was performed with electrocautery and the iliotibial band was then incised with electrocautery. Next, Charnley retractor was placed bother anteriorly and posteriorly at the level of the gluteus tendon. Next, electrocautery was used to make an incision in the vastus lateralis and then sweep was made toward the anterior aspect of the patient along the course of the femoral neck and head. Abductor split was then completed. The gluteus minimus and capsule were then incised and then soft tissue was dissected anteriorly requiring extended surgical time due to mitigating factors related to enlarged body habitus and high BMI. Next as the soft tissue was dissected anteriorly the lesser trochanter was clearly identified and hip was dislocated with relative ease. Hypertrophic osteophytes were noted circumferentially. The hip joint was noted to be noticeably tight. Next the sagittal saw was used to resect the proximal portion of the femoral neck and head approximately one fingerbreadth proximal to the lesser trochanter. Head was then removed and next the labrum was excised from the acetabulum with a 20 blade scalpel and long forceps. Next the wound was irrigated with pulsatile lavage and the pulvinar was then excised from the acetabulum. Appropriate retractors were placed anteriorly superiorly and posteriorly. Next initial acetabular reamer was placed 46 mm, medialized to the medial wall and then sequential reaming was performed to size 58 mm. Trial cage was then placed and noted to be stable with excellent fit. Next the wound was irrigated with pulsatile lavage with Ancef additive and a 58 mm Tritanium acetabular shell was impacted and then 6.5 mm low-profile hex screws x2 were used to stabilize the acetabular shell. Next, X3 polyethylene liner with a 10- degree raised edge was impacted into the shell. Lap sponge was placed over to protect it. Next, attention was turned toward the proximal femur. Box osteotome was used to resect proximal portion of bone followed by first pass small reamer. Next, sequential broaching was performed up to size 5 and the 5 trial was placed followed by +0 neck Biolox Delta ceramic trial head. Next, it was reduced and had excellent fit and feel with minimal shuck and excellent stability in all planes and range of motion. Leg lengths were restored and next all trial implants were removed. The wound was copiously irrigated with pulsatile lavage and size 5 Accolade II femoral stem press-fit final stem was impacted. Next, +0 neck Biolox Delta ceramic head was impacted. The construct was reduced. Range of motion was performed and noted to be completely stable with excellent range of motion, improved to greater degree than prior to surgery. Two 10 Vincentian single Hemovac drains were placed exiting anterolaterally. The entire incision was irrigated with pulsatile lavage. Next a #5 FiberWire suture was used to close the capsule and gluteus minimum via two small bone tunnels made with 2.4 mm drill bit in the greater trochanter. After FiberWire closure was completed and noted to be stable then 10 Vincentian drains were placed followed by closure of the vastus lateralis and the gluteus medius. This was closed with #1 Vicryl sutures. Next, the iliotibial band was closed using interrupted [id number] #1 Vicryl sutures. Next, final irrigation was performed with pulsatile lavage and the dermis was closed using buried interrupted 2-0 Vicryl suture. The skin was closed with skin marciano. Sterile compressive dressing was applied. The patient was then placed supine and taken to recovery in stable condition. Substantial increase in surgical time, surgical effort and need for extended meticulous hemostasis was required due to the patient's high BMI and large body habitus. Job ID: [id number] [facility]
--- NOTE | 2021-10-10 13:58 | XRay Report ---
AP PELVIS, CROSSTABLE LATERAL RIGHT HIP History: Right total hip arthroplasty. Degenerative arthritis. Postop. FINDINGS: The patient is status post a right total hip arthroplasty. The hardware is intact. No fract ure or dislocation. Skin marciano and surgical drains are in place. IMPRESSION: Right total hip arthroplasty. No evidence for hardware complication ACT 112: Negative or not required by law. Electronically signed by: Farhad Cole M.D. 10/10/2021 1:57 PM
[2021-10-10] MEDS ORDERED: PHARMACY GLYCEMIC MGMT CONSULT PRN (14:22)
[2021-10-10] MEDS ORDERED: METOCLOPRAMIDE HCL INJ 5 MG/ML 2 ML VIAL IV PRN (14:22)
[2021-10-10] MEDS ORDERED: diphenhydrAMINE Capsule 25 MG CAP PO PRN (14:22)
[2021-10-10] MEDS ORDERED: oxyCODONE HCL IR 5 MG TAB (IMMEDIATE RELEASE) PO PRN (14:22)
[2021-10-10] MEDS ORDERED: NALOXONE HCL 0.4 MG/1 ML VIAL/CARP IV PRN (14:22)
[2021-10-10] MEDS ORDERED: MAGNESIUM HYDROXIDE SUSP 30 ML UDC PO PRN (14:22)
[2021-10-10] MEDS ORDERED: ALUMINUM/MAGNESIUM SUSP 30 ML UDC PO PRN (14:22)
[2021-10-10] MEDS ORDERED: TAMSULOSIN HCL 0.4 MG CAP PO PRN (14:22)
[2021-10-10] MEDS ORDERED: SODIUM CHLORIDE 0.9% 1000ML 1,000 ML IV SCH (14:22)
[2021-10-10] MEDS ORDERED: KETOROLAC TROMETHAMINE 15 MG/ML VIAL IV PRN (14:22)
[2021-10-10] MEDS ORDERED: bisacodyL 10 MG SUPP PR PRN (14:22)
[2021-10-10] MEDS ORDERED: HYDROmorphone INJ 0.5 MG/0.5 ML SYR IV PRN (14:22)
--- NOTE | 2021-10-10 14:37 | Anesthesiology Progress Note ---
Date of Service October 10, 2021 Anesthesia Post Procedure Vital Signs Vital Signs: Temp Pulse Pulse Resp BP Pulse Ox O2 Del Method 10/10/21 14:25 97.9 F 72 16 131/84 94 Nasal Cannula 10/10/21 13:35 80 20 139/91 93 Nasal Cannula 10/10/21 14:05 68 12 150/87 H 92 Nasal Cannula 10/10/21 13:55 77 17 134/96 93 Nasal Cannula 10/10/21 13:45 97.9 F 78 19 137/83 95 Nasal Cannula 10/10/21 13:25 82 18 145/90 H 94 Nasal Cannula 10/10/21 13:15 98.4 F 79 18 146/94 H 95 Oxymask 10/10/21 07:03 98.8 F 78 20 141/89 H 93 Room Air O2 Flow Rate 10/10/21 14:25 2 10/10/21 13:35 4 10/10/21 14:05 2 10/10/21 13:55 2 10/10/21 13:45 4 10/10/21 13:25 4 10/10/21 13:15 5 10/10/21 07:03 Transfer of Care Handoff Completed per policy Notes Mental Status: alert / awake / arousable and participated in evaluation Patient Amnestic to Procedure: Yes Nausea / Vomiting: adequately controlled Pain: adequately controlled Airway Patency, RR, SpO2: stable & adequate BP & HR: stable & adequate Hydration State: stable & adequate Neuraxial Anesthesia: was administered and sensory block is resolving Anesthetic Complications: no major complications apparent and Pt Satisfied with anesthetic care
--- NOTE | 2021-10-10 14:52 | Pharmacy Report ---
Pharmacy Glycemic Short Note 2 - Date of Service October 10, 2021 - Glycemic Short BSG Results (Last 24 hours): 10/10/21 10/10/21 07:14 13:16 POC Glucose 131 H 158 H OUTPATIENT ANTIDIABETIC REGIMEN: * Metformin 500 mg BIM * A1c 6.1% 09/13/21 ASSESSMENT: * Patient admitted post right hip arthroplasty, with po dexamethasone administration, 4 mg iv pulled * Patient with good A1c suggesting good control with metformin, will start with novolog based on adjusted body weight stress of 3, and lantus 15 units x 1, with additional on order for this evening if needed * overnight checks PLAN FOR INPATIENT GLYCEMIC CONTROL: * Hold outpatient oral diabetes medications * Basal insulin * Lantus 15 units SQ BID x1, 0-25 units this evening * Bolus insulin * NovoLog per scale ACHS or Q6hrs while NPO * Goal Range: Low 110 mg/dL - High 140 mg/dL * Correction Factor: 20 mg/dL/unit * Nutritional / Prandial insulin per carb ratio of 1 unit per 6 grams CHO consumed
[2021-10-10] MEDS ORDERED: LANTUS PER UNIT CHARGE SQ ONE ×2 (15:15→21:00)
[2021-10-10] MEDS ORDERED: CARBOHYDRATES FOR HYPOGLYCEMIA PO PRN (15:15)
[2021-10-10] MEDS ORDERED: GLUCOSE 10 TAB/TUBE PO PRN (15:15)
[2021-10-10] MEDS ORDERED: GLUCAGON FOR INJ 1 MG VIAL IM PRN (15:15)
[2021-10-10] MEDS ORDERED: GLUCOSE 40% GEL 15 GM TUBE PO PRN (15:15)
[2021-10-10] MEDS ORDERED: DEXTROSE 50% 50 ML SYRINGE IV PRN (15:15)
[2021-10-10] MEDS: ACETAMINOPHEN 500 MG TAB PO SCH ×2 (15:39→23:04)
--- NOTE | 2021-10-10 16:27 | Consultation ---
Date of Consultation October 10, 2021 Assessment & Plan (1) Osteoarthritis of right hip: (2) Hypertension: (3) Pre-diabetes: (4) Sleep apnea: (5) History of venous thromboembolism: Plan This is a 56-year-old male who has significant past medical history of HTN, prediabetes, MARTA on CPAP, history of DVT and PE, history of colonic polyps, history of COVID-19 who presents for elective right total hip arthroplasty. Osteoarthritis of right hip Status post right total hip arthroplasty by Dr. Mathis, EBL 100 mL POD #0 Patient tolerated procedure well Pain/wound management per orthopedics Activity and therapy as directed by Ortho Encourage incentive spirometry and wean oxygen as able Monitor hemoglobin, preop 14.5 Hypertension Blood pressure stable Continue lisinopril/HCTZ with parameters Prediabetes A1c preop on 09/13 was 6.1 Hold metformin Glycemic pharmacy on board, appreciate their management MARTA Patient brought his home CPAP, will place order to allow for patient to use his own CPAP History of venous thromboembolism Patient has history of DVT/PE after shoulder surgery; also DVTs after knee injuries Patient has never been tested for clotting disorder Would recommend testing as outpatient with PCP Tobacco abuse Patient chews half to 1 can daily Declines nicotine patch for now Encourage nicotine cessation postoperatively to allow for proper wound healing, this was discussed with pt DVT prophylaxis: Apixaban 2.5 twice daily for prophylaxis, encourage early ambulation Dispo: Per primary PCP: Simon Full code Patient was seen and examined in collaboration with, Dr Millard, please see addendum Thank you for this consultation. We will follow the patient with you during their hospital stay. You can reach a member of the [facility] Hospitalist Team 14/10 via hospitalist role on tiger text. Supervising Physician Co-Signing Physician Notes This is an attending cosign note for full report and documentation please see the dictation by ARGENIS following is a synopsis. Patient post right total hip. No active complaints. Feeling sore however. History of prediabetes and hypertension. History of DVT after shoulder surgery resulting in PE. Not on any chronic anticoagulation. Head atraumatic chest largely clear abdomen soft. Pain on movement of the right hip. DVT prophylaxis and pain management as per the primary team. Early mobilization recommended. Continue home medication. Diabetic diet. History of Present Illness Requesting Physician: Dr. Mathis Reason for Consultation: Post op medical management Attending Physician: Bg Mathis DO History of Present Illness This is a 56-year-old male who has significant past medical history of HTN, prediabetes, MARTA on CPAP, history of DVT and PE, history of colonic polyps, history of COVID-19 who presents for elective right total hip arthroplasty. Dr. Mathis was patient's surgeon. Currently he offers no acute concerns or complaints. He states he is starting to be able to feel his incision site but denies any zach right lower extremity pain. Currently he feels well and denies any fever, chills, sweats, lightheadedness, dizziness, chest pain, shortness breath, cough, nausea, vomiting, abdominal pain, changes bowel or urinary habits. Patient does have history of hypertension controlled on losartan/HCTZ. He is also a prediabetic with most recent A1c being 6.1 on 09/13/2021. He takes metformin for this. He also has history of blood clots in the past. Previously after a right total shoulder he had a blood clot in his basilic vein and ended up with pulmonary embolism. After the injuries in the past he also developed DVTs in his lower extremities. He is unsure if any of his family members have had blood clots and he has not been tested for any clotting disorder. He does not take any anticoagulation on a regular basis. Allergies Allergy/AdvReac Type Severity Reaction Status Date / Time GATITO Inhibitors AdvReac Severe Cough Verified 10/10/21 07:10 Home Medications Medication Instructions Recorded Confirmed Type acetaminophen 325 mg tablet 650 mg PO QID PRN fever/pain 12/16/20 10/10/21 History (Tylenol) atorvastatin 20 mg tablet 20 mg PO QAM 12/16/20 10/10/21 History losartan 100 1 tab PO QAM 12/16/20 10/10/21 History mg-hydrochlorothiazide 25 mg tablet metformin 500 mg tablet 500 mg PO BIDM 12/16/20 10/10/21 History sertraline 100 mg tablet 100 mg PO QAM 12/16/20 10/10/21 History Patient History Medical History (Updated 10/10/21 @ 16:28 by Lidya Meek PA-C) Bowel perforation (~2013) s/p shoulder surgery Deep vein thrombosis "" s/p knee trauma Depression Diabetes mellitus, type 2 NIDDM Diverticular disease History of COVID-19 12/16/20 treated at [facility] inpatient. no ventilator needed. Hyperlipidemia Hypertension controlled, stable per pt Pulmonary embolism s/p shoulder surgery ~2013 Sleep apnea cpap nightly Surgical History History of colectomy (~2013) perforation s/p shoulder surgery r/t hx diverticulitis History of colonoscopy S/P left knee arthroscopy S/P right knee arthroscopy S/P shoulder replacement right shoulder Family History Father FHx: suicide Other No family history of adverse response to anesthesia Social History Smoking Status: Never smoker Second Hand Exposure: No; Do You Dip or Chew Tobacco: Yes (1 can/2 days (advised)); Tobacco Cessation Education Requested by Patient: No Hx Alcohol Use: No Hx Substance Use: No Preferred Language: Yoruba Communication Ability: Effective Missionary Coordinator Required: No Beliefs That Will Affect Care: None Current Living Situation: Alone Other Information That Helps Us Care for You: No Feels Safe at Home: Yes Safety Concerns: Feels Safe At This Time Assistive Devices: CPAP and Glasses Review of Systems Review of Systems: All systems reviewed & are unremarkable except as noted in HPI & below Physical Exam Physical Exam: Constitutional: WD/WN, vitals as above, NAD, sitting up in bed, pleasant, conversing easily Head: Normocephalic, Atraumatic Eyes: PERRL, conjunctivae normal, anicteric sclerae ENMT: external ear and nose normal, oropharynx normal Neck: trachea midline, no thyromegaly normal visual inspection Respiratory: On O2 via NC normal respiratory effort, lungs clear to auscultation, no wheeze, rales, rhonchi. Normal insp/exp effort, no accessory muscle use Cardiovascular: RRR, no murmur, no edema Vessels: no JVD or carotid bruit Chest: normal inspection of chest Abdomen: normal bowel sounds, soft, nontender, no hepatosplenomegaly Musculoskeletal: no cyanosis or clubbing, active range of motion x2 in upper extremities, lower extremities not assessed, RLE NVI distally, dressing cdi Skin: no rashes, warm and dry normal turgor Neurologic: PERRL, EOMI, accommodation nl, no face palsy, no dysarthria CN's II-XI intact bilaterally and moves all extremities Psychiatric: A+Ox3, euthymic affect : deferred Results & Data ([facility]) Vital Signs (Past 12 Hours) Vital Signs Temp Pulse Pulse Resp BP Pulse Ox O2 Del Method 10/10/21 15:27 36.3 C L 84 16 117/72 92 Nasal Cannula 10/10/21 14:47 36.4 C L 72 16 151/95 H 94 Nasal Cannula 10/10/21 14:25 36.6 C 72 16 131/84 94 Nasal Cannula 10/10/21 13:35 80 20 139/91 93 Nasal Cannula 10/10/21 14:05 68 12 150/87 H 92 Nasal Cannula 10/10/21 13:55 77 17 134/96 93 Nasal Cannula 10/10/21 13:45 36.6 C 78 19 137/83 95 Nasal Cannula 10/10/21 13:25 82 18 145/90 H 94 Nasal Cannula 10/10/21 13:15 36.9 C 79 18 146/94 H 95 Oxymask 10/10/21 07:03 37.1 C 78 20 141/89 H 93 Room Air O2 Flow Rate 10/10/21 15:27 2 10/10/21 14:47 2 10/10/21 14:25 2 10/10/21 13:35 4 10/10/21 14:05 2 10/10/21 13:55 2 10/10/21 13:45 4 10/10/21 13:25 4 10/10/21 13:15 5 10/10/21 07:03 Laboratory Results Preop lab work on 09/13/2021 WBC 6.8, H&H 14.5 and 41.5, platelet 205 Sodium 141, K3.8, BUN 18, creatinine 1.2 A1c 6.1 Urinalysis negative COVID 19 negative Diagnostic Findings Hip/Pelvis X-Ray 10/10/21 13:26 AP PELVIS, CROSSTABLE LATERAL RIGHT HIP History: Right total hip arthroplasty. Degenerative arthritis. Postop. FINDINGS: The patient is status post a right total hip arthroplasty. The hardware is intact. No fracture or dislocation. Skin marciano and surgical drains are in place. IMPRESSION: Right total hip arthroplasty. No evidence for hardware complication ACT 112: Negative or not required by law. Electronically signed by: Farhad Cole M.D. 10/10/2021 1:57 PM Medications Administered Current Inpatient Medications Acetaminophen (Acetaminophen 500 Mg Tab) 1,000 mg PO PREOP HARRIETT Stop: 10/10/21 18:00 Last Admin: 10/10/21 07:58 Dose: 1,000 mg Acetaminophen (Acetaminophen 500 Mg Tab) 1,000 mg PO Q8 HARRIETT Stop: 11/09/21 14:21 Last Admin: 10/10/21 15:39 Dose: 1,000 mg Al Hydrox/Mg Hydrox/Simethicone (Aluminum/Magnesium Susp 30 Ml Udc) 15 ml PO Q4H PRN PRN Reason: Heartburn Stop: 11/09/21 14:21 Apixaban (Apixaban 2.5 Mg Tab) 2.5 mg PO BID HARRIETT Stop: 11/09/21 20:59 Atorvastatin Calcium (Atorvastatin 20 Mg Tab) 20 mg PO QAM HAR[facility]ETT Stop: 11/10/21 08:59 Atropine Sulfate (Atropine Sulfate 0.1 Mg/Ml 10ml Syr) 0.5 mg IV Q1M PRN PRN Reason: PACU Use-HR<40 &/or Bradycardi Stop: 10/10/21 16:47 Bisacodyl (Bisacodyl 10 Mg Supp) 10 mg GA DAILY PRN PRN Reason: Constipation Stop: 11/09/21 14:21 Celecoxib (Celebrex 200 Mg Cap) 200 mg PO PREOP HARRIETT Stop: 10/10/21 18:00 Last Admin: 10/10/21 07:58 Dose: 200 mg Celecoxib (Celebrex 200 Mg Cap) 200 mg PO BID HARRIETT Stop: 11/09/21 20:59 Dexamethasone (Dexamethasone 4 Mg Tab) 8 mg PO PREOP HARRIETT Stop: 10/10/21 18:00 Last Admin: 10/10/21 07:58 Dose: 8 mg Dextrose (Dextrose 50% 50 Ml Syringe) 25 - 50 ml IV UD PRN; Protocol PRN Reason: Hypoglycemia Protocol Stop: 11/09/21 15:14 Diphenhydramine HCl (Diphenhydramine Capsule 25 Mg Cap) 25 mg PO Q8H PRN PRN Reason: Itching Stop: 11/09/21 14:21 Docusate Sodium (Docusate Sodium 100 Mg Cap) 100 mg PO BID HARRIETT Stop: 11/09/21 20:59 Ephedrine Sulfate (Ephedrine Sulfate 50 Mg/Ml Amp) 5 mg IV Q5M PRN PRN Reason: PACU Use Only-SBP<90 mmHg Stop: 10/10/21 16:47 Famotidine (Famotidine 20 Mg Tab) 20 mg PO PREOP HARRIETT Stop: 10/10/21 18:00 Last Admin: 10/10/21 07:58 Dose: 20 mg Fentanyl Citrate (Fentanyl Citrate 100 Mcg/2 Ml Vial) 50 mcg IV Q5M PRN PRN Reason: PACU Use Only-Pain Stop: 10/10/21 16:48 Ferrous Gluconate (Ferrous Gluconate 324 Mg Tab) 324 mg PO BIDM HARRIETT Stop: 11/09/21 16:59 Gabapentin (Gabapentin 600 Mg Dose) 600 mg PO PREOP HARRIETT Stop: 10/10/21 18:00 Last Admin: 10/10/21 07:58 Dose: 600 mg Glucagon (Glucagon For Inj 1 Mg Vial) 1 mg IM UD PRN; Protocol PRN Reason: Hypoglycemia Protocol Stop: 11/09/21 15:14 Glucose (Glucose 40% Gel 15 Gm Tube) 15 - 30 gm PO UD PRN; Protocol PRN Reason: Hypoglycemia Protocol Stop: 11/09/21 15:14 Glucose (Glucose 10 Tab/Tube) 4 - 8 tab PO UD PRN; Protocol PRN Reason: Hypoglycemia Protocol Stop: 11/09/21 15:14 HCTZ/Losartan Potassium (Losartan/Hctz 50/12.5mg Tab) 1 tab PO QAM HARRIETT Stop: 11/10/21 08:59 Hydromorphone HCl (Hydromorphone Inj 0.5 Mg/0.5 Ml Syr) 0.5 mg IV Q3H PRN PRN Reason: Pain or Pre PT Stop: 10/24/21 14:21 Lactated Ringer's (Lr) 1,000 mls @ 15 mls/hr IV .Q24H HAR[facility]ETT Stop: 10/10/21 18:00 Last Infusion: 10/10/21 09:50 Dose: Infused Cefazolin Sodium (Ancef 2000mg) 2,000 mg in 15 mls @ 3.75 mls/min IV PREOP HARRIETT; Protocol Stop: 10/10/21 18:00 Last Admin: 10/10/21 09:50 Dose: 3.75 mls/min Sodium Chloride (Nss 1000ml) 1,000 mls @ 100 mls/hr IV .Q10H [facility] Stop: 10/11/21 06:00 Last Admin: 10/10/21 14:44 Dose: 100 mls/hr Cefazolin Sodium (Ancef 2000mg) 2,000 mg in 15 mls @ 3.75 mls/min IV Q8H [facility]; Protocol Stop: 10/11/21 03:33 Insulin Aspart (Insulin Aspart Per Unit) 0 units SC ACHS [facility] Stop: 11/09/21 16:29 Insulin Aspart (Insulin Aspart Per Unit) 0 units SC TODAY@0000,0400 [facility] Stop: 10/11/21 04:01 Insulin Glargine (Lantus Per Unit Charge) 0 units SQ HS ONE; Protocol Stop: 10/10/21 21:01 Ketorolac Tromethamine (Ketorolac Tromethamine 15 Mg/Ml Vial) 15 mg IV Q6H PRN PRN Reason: Breakthrough Pain Magnesium Hydroxide (Magnesium Hydroxide Susp 30 Ml Udc) 30 ml PO Q6H PRN PRN Reason: Constipation Stop: 11/09/21 14:21 Metoclopramide HCl (Metoclopramide Hcl 10 Mg Tablet) 10 mg PO PREOP [facility] Stop: 10/10/21 18:00 Last Admin: 10/10/21 07:58 Dose: 10 mg Metoclopramide HCl (Metoclopramide Hcl Inj 5 Mg/Ml 2 Ml Vial) 10 mg IV Q6H PRN PRN Reason: Nausea And Vomiting Stop: 11/09/21 14:21 Miscellaneous (Carbohydrates For Hypoglycemia ) 15 - 30 gm PO UD PRN PRN Reason: Hypoglycemia Treatment Stop: 11/09/21 15:14 Miscellaneous Information (Pharmacy Glycemic Mgmt Consult) 1 each N/A UD PRN PRN Reason: Consult Stop: 11/09/21 14:21 Multivitamins (Multivitamin Tab) 1 tab PO QAM [facility] Stop: 11/10/21 08:59 Naloxone HCl (Naloxone Hcl 0.4 Mg/1 Ml Vial/Carp) 0.1 mg IV Q5M PRN PRN Reason: Oversedation/Resp Depression Stop: 11/09/21 14:21 Ondansetron HCl (Ondansetron Inj 2 Mg/Ml 2 Ml Vial) 4 mg IV ONCE PRN PRN Reason: PACU Use Only-Nausea/Vomiting Stop: 10/10/21 16:48 Ondansetron HCl (Ondansetron Inj 2 Mg/Ml 2 Ml Vial) 4 mg IV Q6H PRN PRN Reason: Nausea And Vomiting Stop: 11/09/21 14:21 Oxycodone HCl (Oxycodone Hcl Ir 5 Mg Tab (Immediate Release)) 5 - 10 mg PO Q4H PRN PRN Reason: Pain or Pre PT Stop: 10/24/21 14:21 Sennosides (Senna 8.6 Mg Tab) 17.2 mg PO HS HARRIETT Stop: 11/09/21 20:59 Sertraline HCl (Sertraline Hcl 100 Mg Tablet) 100 mg PO QAM [facility] Stop: 11/10/21 08:59 Tamsulosin HCl (Tamsulosin Hcl 0.4 Mg Cap) 0.4 mg PO QAM PRN PRN Reason: UNABLE to void Stop: 11/09/21 14:21 ECG Rate (beats per minute): 89 Rhythm: normal sinus
[2021-10-10] MEDS: FERROUS GLUCONATE 324 MG TAB PO SCH (17:35)
[2021-10-10] MEDS: INSULIN ASPART PER UNIT SC SCH ×2 (17:37→20:54)
[2021-10-10] MEDS: CeleBREX 200 MG CAP PO SCH (20:47)
[2021-10-10] MEDS: APIXABAN 2.5 MG TAB PO SCH (20:48)
[2021-10-10] MEDS: DOCUSATE SODIUM 100 MG CAP PO SCH (20:48)
[2021-10-10] MEDS: ceFAZolin 2000MG 2,000 MG/15 ML SYR IV SCH (20:49)
[2021-10-10] MEDS ORDERED: SENNA 8.6 MG TAB PO SCH (21:00)
[2021-10-11] MEDS: INSULIN ASPART PER UNIT SC SCH ×4 (00:08→13:15)
[2021-10-11] MEDS: ceFAZolin 2000MG 2,000 MG/15 ML SYR IV SCH (04:18)
[2021-10-11] MEDS: ACETAMINOPHEN 500 MG TAB PO SCH ×2 (05:26→13:16)
[2021-10-11] MEDS ORDERED: TRANEXAMIC ACID 100 MG/ML 10 ML VIAL IV SCH (06:00)
[2021-10-11 06:23] LABS: Basophils # (auto) 0.02 K/uL (0-0.2); Basophils % (auto) 0.1 %; Hematocrit (blood only) 32.8 % (40.1-51.0); Hemoglobin 11.5 g/dl (14.0-18.0); Immature Granulocytes # (auto) 0.06 K/uL (0.00-0.02); Immature Granulocytes % (auto) 0.4 %; Lymphocytes % (auto) 7.4 %; Mean Corpuscular Hemoglobin 31.6 pg (25.0-34.0); Mean Corpuscular Hgb Conc 35.1 g/dL (32.0-36.0); Mean Corpuscular Volume 90.1 fL (80.0-100.0); Monocytes % (auto) 5.4 %; Neutrophils # (auto) 12.86 K/uL (1.4-6.5); Neutrophils % (auto) 86.7 %; Platelet Count 204 K/uL (130-400); RDW Coefficient of Variation 13.2 % (11.5-14.5); RDW Standard Deviation 43.5 fL (36.4-46.3); Red Blood Count 3.64 M/uL (4.63-6.08); White Blood Count 14.84 K/ul (4.8-10.8)
[2021-10-11 06:53] LABS: BUN Creatinine Ratio 24.2 (10-20); Calcium 8.4 mg/dl (8.5-10.1); Est GFR (African American) 102.6 ml/min; Est GFR (Non-African American) 88.5 ml/min; Potassium 3.7 mmol/L (3.5-5.1)
[2021-10-11] MEDS ORDERED: metFORMIN HCL 500 MG TAB PO SCH ×2 (08:00→17:00)
--- NOTE | 2021-10-11 08:14 | Orthopedic Progress Note ---
Date of Service October 11, 2021 Assessment & Plan (1) Osteoarthritis of right hip: Plan: Postop day #1 status post right total hip arthroplasty PT/OT--weight-bear as tolerated right lower extremity. DVT prophylaxisEliquis 2.5 mg twice daily x30 days, KISHA stockings x30 days. SCDs while admitted. Pain controlTylenol 1000 mg every 8 hours, oxycodone 5 mg as needed Velia dressing to remain in place for 7 days. The Hemovac will be removed prior to discharge. Discharge planningplan for home with home health today. Admission and Anticipated Discharge Date Admission Date: October 10, 2021 Subjective Doing well this morning. Pain is controlled in the right hip. States he was able to ambulate last night without much difficulty. Denies chest pain, shortness of breath, lightheadedness. No calf pain. Physical Exam Constitutional: WD/WN, vitals as above no acute distress ENMT: external ear and nose normal, oropharynx normal Neck: trachea midline Respiratory: normal respiratory effort, lungs clear to auscultation Cardiovascular: Rate/Rhythm: regular rate and regular rhythm Gastrointestinal (Abdomen): normal bowel sounds, soft, nontender, no hepatosplenomegaly Musculoskeletal: Hip: + surgical incision (Right hip:VELIA dressing in place and functioning. C/D/I.) and + surgical drain present (Only 5 cc in approximately 24 hours.); no deformity, no skin erythema, no ecchymosis and no joint line tenderness (Right thigh soft.) Skin: no rashes, warm and dry Trauma: no evidence of skin trauma Neurologic: normal touch/pain/proprioception Psychiatric: A+Ox3, euthymic affect Speech: normal rate/rhythm/volume of speech Lymphatic: no cervical or axillary lymphadenopathy Results & Data ([facility]) Vital Signs (Past 12 Hours) Vital Signs Temp Pulse Resp BP Pulse Ox O2 Del Method 10/11/21 07:51 36.4 C L 70 16 121/80 97 CPAP 10/11/21 04:06 36.8 C 63 16 115/74 97 10/10/21 21:29 37 C 74 18 109/66 95 CPAP Laboratory Results Laboratory Tests 10/11/21 10/11/21 06:11 06:11 Hgb 11.5 L Hct 32.8 L Plt Count 204 BUN 23 Creatinine 0.95 Diagnostic Findings Postoperative 2 views of the right hip reviewed. Well aligned total hip arthroplasty implant.
[2021-10-11] MEDS: CeleBREX 200 MG CAP PO SCH (08:24)
[2021-10-11] MEDS: APIXABAN 2.5 MG TAB PO SCH (08:24)
[2021-10-11] MEDS: DOCUSATE SODIUM 100 MG CAP PO SCH (08:24)
[2021-10-11] MEDS: FERROUS GLUCONATE 324 MG TAB PO SCH (08:24)
[2021-10-11] MEDS ORDERED: LANTUS PER UNIT CHARGE SQ SCH (09:00)
[2021-10-11] MEDS ORDERED: MULTIVITAMIN TAB PO SCH (09:00)
[2021-10-11] MEDS ORDERED: LOSARTAN/HCTZ 50/12.5MG TAB PO SCH (09:00)
[2021-10-11] MEDS ORDERED: ATORVASTATIN 20 MG TAB PO SCH (09:00)
[2021-10-11] MEDS ORDERED: SERTRALINE HCL 100 MG TABLET PO SCH (09:00)
--- NOTE | 2021-10-16 13:30 | Discharge Summary ---
Date of Service October 16, 2021 Admission HPI Per Admitting Provider This is a patient who is a chronic history of right hip and groin pain. X-rays revealed right hip osteoarthritis. He was treated conservatively for hip osteoarthritis however he is failed all conservative management. He is now being set up for surgical treatment. Principal Diagnosis Right hip osteoarthritis Discharge Exam Constitutional WD/WN, vitals as above no acute distress ENMT external ear and nose normal, oropharynx normal Neck trachea midline Respiratory normal respiratory effort, lungs clear to auscultation Cardiovascular Rate/Rhythm: regular rate and regular rhythm Gastrointestinal (Abdomen) normal bowel sounds, soft, nontender, no hepatosplenomegaly Musculoskeletal Hip: + surgical incision (Right hip:ROCKY dressing in place and functioning. C/D/I.) and + surgical drain present (Only 5 cc in approximately 24 hours.); no deformity, no skin erythema, no ecchymosis and no joint line tenderness (Right thigh soft.) Skin no rashes, warm and dry Trauma: no evidence of skin trauma Neurologic normal touch/pain/proprioception Psychiatric A+Ox3, euthymic affect Speech: normal rate/rhythm/volume of speech Lymphatic no cervical or axillary lymphadenopathy Discharge Data Allergies Allergy/AdvReac Type Severity Reaction Status Date / Time GATITO Inhibitors AdvReac Severe Cough Verified 10/10/21 07:10 Consultations 10/10/21 14:22 Consult Internal Medicine Routine Procedures Performed Operation Date: 10/10/21 09:05 Actual Procedures p Right Total Hip Arthroplasty(Right) - Bg Mathis DO Hospital Course (1) Osteoarthritis of right hip: Postop day #1 status post right total hip arthroplasty PT/OT--weight-bear as tolerated right lower extremity. DVT prophylaxisEliquis 2.5 mg twice daily x30 days, KISHA stockings x30 days. SCDs while admitted. Pain controlTylenol 1000 mg every 8 hours, oxycodone 5 mg as needed Rocky dressing to remain in place for 7 days. The Hemovac will be removed prior to discharge. Discharge planningplan for home with home health today. Total Time Total Time Spent Total Time Spent (In Minutes): 20 Discharge Plan Discharge Items Patient Disposition: Home - Home Health Services Reason For Visit: Right Hip Osteoarthritis Discharge Diagnosis: Right Hip Osteoarthritis Activity: Per Instructions section Weightbearing: Right weightbearing Weightbearing Comment: as tolerated with walker Non-emergency contact: Surgeon Call non-emergency contact if: you have any medication questions, your pain is not controlled, your temperature is above 101.5, your wound has increased redness and your wound has increased drainage Follow-up/Referrals: Bg Mathis DO [Surgeon] - (Follow up with Dr Mathis or his PA Almas Barrow in 2 weeks from the day of your surgery. ) Tadeo Montes DO [Primary Care Provider] - Diet: Regular Addtl Attending Provider Instructions: ACTIVITY RECOMMENDATIONS: SELF CARE INSTRUCTIONS AFTER TOTAL HIP REPLACEMENT Until the incision and soft tissues around your hip have healed, there is a possibility that the hip prosthesis could dislocate. A. Observe the following precautions to prevent dislocation: 1. Don't bend your hip greater than 90 degrees. 2. Avoid crossing your legs or ankles while standing or lying. 3. Sit with your feet placed 6 inches apart. 4. When sitting, keep your knees below your hips. Sit on a firm surface, avoid deep, soft chairs and couches. Use an elevated toilet seat in the bathroom. 5. Don't bend over at the waist. Use a long handled shoehorn and a sock aid to help you put on your shoes and socks. A network firewall engineer can help you tile picker objects that are too high or too low to reach. 6. Keep car riding to a minimum for at least one month after surgery. B. Your balance may be shaky for a while. Use crutches or a walker until directed by your doctor. C. Use hand rails when walking on stairs. D. Wear low heeled shoes with non-slip soles. E. Be sure that your floors are free of things that could trip you - throw rugs, electrical cords, small objects. Avoid wet and waxed floors, especially with crutches and canes. F. Try to walk several times a day with rest periods between. G. Continue with all the exercises taught to you in the hospital. Again, make walking a part of your daily routine. SPECIAL CARE INSTRUCTIONS: VERY IMPORTANT TO READ AND REVIEW A. You may still be at risk for phlebitis and blood clots. 1. Wear surgical stockings (KISHA hose) for 2 weeks after surgery to improve circulation and reduce swelling. 2. Take APIXABAN 2.5MG TWICE DAILY for 4 weeks or as directed by your doctor. This is your blood thinner. B. You must take antibiotics before having dental work, bladder, bowel and other surgery. Your doctor will provide you with a permanent card to carry describing precautions. C. Call [facility] if you have a fever, redness or swelling around the incision, cloudy drainage from incision, or sudden increase in pain in your hip, not relieved by your regular pain medication. D. Please call the office at if you have any concerns or questions about your operation or recovery. * YOU MAY SHOWER, NO TUB BATHS UNTIL CLEARED BY YOUR DOCTOR. * WEAR KISHA HOSE 20 HOURS PER DAY FOR 2 WEEKS. * YOU SHOULD USE A WALKER OR CRUTCHES FOR 2-4 WEEKS. THIS WILL HELP PREVENT STRAIN ON YOUR HIP MUSCLE AND ALLOW IT TO HEAL PROPERLY. YOU MAY WEAN TO A CANE TOLERATED. * MOST PATIENTS WILL HAVE HOME NURSING FOR THERAPY. IF YOU DECIDE TO DO OUTPATIENT PHYSICAL THERAPY, PLEASE SCHEDULE THIS 3 TIMES PER WEEK. * YOU MAY HAVE A LARGE, BAND-LORI LIKE DRESSING (SILVERON). THIS WILL REMAIN ON YOUR INCISION FOR 7 DAYS, THEN CAN BE REMOVED. IF INCISION IS LEAKING THROUGH DRESSING, PLEASE CALL THE OFFICE . FOLLOW UP VISIT: If appointment is not already scheduled: Please call [facility] to make a follow-up appointment for 2 weeks after your surgery at . Pending Studies at Discharge: No Stand-Alone Forms: My [facility], Opioid Pain Management, Smoking Cessation Medications and DC Order Prescriptions: New Eliquis 2.5 mg Tablet 2.5 mg PO BID Qty: 60 0RF acetaminophen [Tylenol Extra Strength] 500 mg Tablet 1,000 mg PO Q8 Qty: 100 0RF oxycodone 5 mg Tablet 5 mg PO Q4H PRN (Reason: pain) Qty: 20 0RF Continued atorvastatin 20 mg tablet 20 mg PO QAM sertraline 100 mg tablet 100 mg PO QAM losartan-hydrochlorothiazide 100-25 mg tablet 1 tab PO QAM metformin 500 mg Tablet 500 mg PO BIDM Discontinued acetaminophen [Tylenol] 325 mg Tablet 650 mg PO QID PRN (Reason: fever/pain) Discharge Orders: Discharge Order (Routine); Ordered 10/11/21 Ordered By: Almas Carlson/Other Patient Handouts: DVT Post Op Prevention, Hip Precautions Admission Data Admit Date/Time: 10/10/21 13:26 Attending Provider: Bg Mathis Admit Provider: Bg Mathis Primary Care Provider: Tadeo Montes Other Providers: Marcella Rendon ; Alyson Landry I. ; Maria Victoria Christie ; Luis F Pang ; Marta Kim ; Gila Callaway ; Shyanne Caputo ; Mello Henning ; Eddie Boston ; Daniel Phillips ; Carmita Min ; Kwesi Roberts ; Corinne Whipple ; Lidya Meek ; Matthieu Beltran ; Adina Anderson ; Fabiana Abraham ; Diamante Mcneill ; Caro Bella I. ; Husam Hardin ; Lily Laird ; Minerva Garnica ; Jerry Bone ; Tab Cleveland ; Jordan Millard ; [facility] Other Interventions: Discharge Summary Assessment (RN) Last Done: 10/11/21 09:29 Supervising Physician Co-Signing Physician Notes This is an attending cosign note for full report and documentation please see the dictation by ARGENIS following is a synopsis. Patient post right total hip. No active complaints. Feeling sore however. History of prediabetes and hypertension. History of DVT after shoulder surgery resulting in PE. Not on any chronic anticoagulation. Head atraumatic chest largely clear abdomen soft. Pain on movement of the right hip. DVT prophylaxis and pain management as per the primary team. Early mobilization recommended. Continue home medication. Diabetic diet.
== END 2021-10-11 13:55 | disposition home health service (06) ==
LOC: ASU 06:44 → 3E 06:44

== ENCOUNTER 2023-05-07 10:57 | Observation (INO) ==
--- NOTE | 2023-03-05 10:30 | PAT Medication Instructions ---
Medication Instructions Date of Service March 05, 2023 Home Medications atorvastatin 20 mg tablet 20 mg PO QAM losartan 100 mg-hydrochlorothiazide 25 mg tablet 1 tab PO QAM metformin 500 mg tablet 500 mg PO BIDM sertraline 100 mg tablet 100 mg PO QAM dulaglutide 4.5 mg/0.5 mL subcutaneous pen injector (Trulicity) 4.5 mg subcut WK DO NOT take the morning of surgery losartan 100 mg-hydrochlorothiazide 25 mg tablet 1 tab PO QAM metformin 500 mg tablet 500 mg PO BIDM Take morning of surgery With a small sip of water, OTHERWISE NOTHING TO EAT OR DRINK AFTER MIDNIGHT: atorvastatin 20 mg tablet 20 mg PO QAM sertraline 100 mg tablet 100 mg PO QAM Take evening before surgery metformin 500 mg tablet 500 mg PO BIDM STOP taking 7 days before surgery dulaglutide 4.5 mg/0.5 mL subcutaneous pen injector (Trulicity) 4.5 mg subcut WK Other Notes If you have any questions please call us at [phone] or [phone] or [phone] or [phone]
--- NOTE | 2023-03-10 09:35 | Anesthesiology Consultation ---
Date of Service March 10, 2023 Assessment & Plan (1) Encounter for pre-operative examination: - check BSG am DOS. - Trulicity instructions: Patient takes on (Friday). Patient informed at PAT visit to stop 7 days prior to surgery- voiced understanding. Instructed last dose will be: (03/25/22). Patient advised to check with prescriber to see if alternative diabetic management changes recommended while holding Trulicity- if so, patient to call back to PAT to update chart and discuss if any further preop medication instructions needed. - Outpatient joint assessment: Patient is currently scheduled for inpatient pathway. If re-evaluated and patient/surgeon requests outpatient pathway, patient is not recommended candidate for outpatient joint program from anesthesia standpoint. Chart Review Chart Review: Acceptable Risk for Surgery and Patient seen in Pre Admission Testing Teaching & Discussion Pre-Anesthesia Teaching/Discussion Notes: Instructed NPO after midnight before surgery, except medications with 15 cc of water. Medication instructions provided according to the PAT guidelines. History Surgery Operation Date: 04/01/23 07:00 Proposed Procedures p Left Total Knee Arthroplasty - Jason Caputo MD Height/Weight Height: 5 ft 8 in Weight: 116.4 kg Allergies Allergy/AdvReac Type Severity Reaction Status Date / Time GATITO Inhibitors AdvReac Severe Cough Verified 03/05/23 09:00 Medications Home Medications Medication Instructions Recorded Confirmed Last Taken atorvastatin 20 mg tablet 20 mg PO QAM 12/16/20 03/05/23 10/10/21 06:00 losartan 100 1 tab PO QAM 12/16/20 03/05/23 10/09/21 09:00 mg-hydrochlorothiazide 25 mg tablet metformin 500 mg tablet 500 mg PO BIDM 12/16/20 03/05/23 10/09/21 19:00 sertraline 100 mg tablet 100 mg PO QAM 12/16/20 03/05/23 10/10/21 06:00 dulaglutide 4.5 mg/0.5 mL 4.5 mg subcut WK 03/05/23 03/05/23 Unknown subcutaneous pen injector (Trulicity) Past Medical History Medical History (Updated 03/10/23 @ 09:55 by Sri Watts PA-C) GERD (gastroesophageal reflux disease) rare History of diverticulitis no issues per 2013 s/p colectomy Rheumatoid arthritis Bowel perforation (~2013) s/p shoulder surgery in 2013 r/t diverticulitis Diabetes mellitus, type 2 NIDDM Depression Pulmonary embolism s/p shoulder surgery ~2013 Deep vein thrombosis "" s/p knee trauma Hyperlipidemia Hypertension controlled, stable per pt History of COVID-19 12/16/20 treated at [facility] inpatient. no ventilator needed-symptoms resolved. Sleep apnea CPAP-compliant Patient denies h/o stroke, seizures, heart attack, heart failure, or blood transfusions. Exercise / Class Metabolic Activity II 4-5 Yardwork/Stairs/Walk up hill (denies chest discomfort or shortness of breath with 1 FOS) Past Family History Family History Father FHx: suicide Other No family history of adverse response to anesthesia Past Surgical History Surgical History History of right hip replacement S/P right knee arthroscopy S/P left knee arthroscopy History of colonoscopy History of colectomy (~2013) perforation s/p shoulder surgery r/t hx diverticulitis S/P shoulder replacement right shoulder Past Anesthesia History No Hx of Anesthesia Complications and No Family Hx of Anesthesia Complications History of PONV No Hx of PONV and No Hx of Motion Sickness Social History Smoking Status: Never smoker tobacco type: smokeless tobacco Do You Dip or Chew Tobacco: Yes (1 can/2 days (advised)) Hx Alcohol Use: Yes alcohol intake frequency: holidays/special occasions only Hx Substance Use: No substance use type: does not use Review of Systems Patient denies chest pain, shortness of breath, dyspnea on exertion, fever, chills, cough, wheezing, or palpitations. Physical Exam Vital Signs Vitals BP 101/71 P 92 TEMP 98.3 SP02 95% on RA RESP 18 Physical Patient resting comfortably in chair in no acute distress, alert and oriented, responding appropriately throughout visit Full cervical extension range of motion without pain TMD 3.5 finger breadths Mallampati Score 2 Dentition: intact, denies chipped or loose teeth, caps/crowns, implants or bridges Lungs: normal respiratory effort. Good air movement, clear throughout to auscultation, no adventitious breath sounds Cardiac: regular rate and rhythm, no murmurs noted Carotid arteries: negative bruit bilat Lab Results Anesthesia Preop Results Results Anesthesia Widget: WBC 7.08 K/ul (4.8-10.8) 03/10/23 Hgb 15.2 g/dl (14.0-18.0) 03/10/23 Hct 43.9 % (42.0-52.0) 03/10/23 Plt 232 K/uL (130-400) 03/10/23 Na 139 mmol/L (136-145) 03/10/23 K 3.2 mmol/L (3.5-5.1) L 03/10/23 Cl 101 mmol/L (98-107) 03/10/23 CO2 29 mmol/L (21-32) 03/10/23 BUN 20 mg/dl (6-23) 03/10/23 Creat 0.97 mg/dl (0.6-1.4) 03/10/23 Glucose Level 127 mg/dl (70-99(Fasting)) H 03/10/23 PT 10.6 Seconds (9.0-12.0) 03/10/23 PTT 26 Seconds (21-31) 03/10/23 INR 1.0 (0.9-1.1) 03/10/23 HA1c 6.0 % (4.5-5.6) H 03/10/23 Blood Type A Positive 03/10/23 Antibody Screen NEGATIVE 03/10/23 Testing Electrocardiogram Date: 03/10/23 NSR, rate 85 bpm Chest X-Ray Date: 03/10/23 No acute cardiopulmonary findings. Cervical Spine Date: 03/10/23 Degenerative changes without evidence of acute abnormality.
--- NOTE | 2023-05-03 10:53 | History & Physical Report ---
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 Failed conservative measures. Is ready have his left knee replaced. Once again he was scheduled to have this done in [place] but elected to have it done here. Plan will proceed with left knee replacement for the risks Mente this procedure explained the patient clued but not limited to DVT PE infection neurological and vascular bleeding palm pain limb range of motion sepsis fairly with symptoms incomplete relief of symptoms excetra. The patient understands and desires to proceed E-point: Informed consent was obtained. He does have a history of a DVT and PE in the past. Will will use Xarelto for DVT prophylaxis along with teds and SCDs. He will use this for a month. He is planned to be discharged home using [facility] program. (2) History of venous thromboembolism: (3) H/O arthroplasty: History of Present Illness Chief Complaint: . Bilateral knee pain discomfort left side greater than the right. Primary Care Provider: Tadeo Montes DO . 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 Got a long history of multiple orthopedic problems in the past and his right shoulder replaced by Dr. Moore 10 years ago on the right hip replaced by Dr. Mathis in 2021. He was supposed to have his knee replaced by Dr. Seals in [place] but decided he did not want to travel down there. He now presents for surgical treatment of the left knee pain got a long history of knee problems. He has been through extensive conservative treatment provided by [facility]. He does have a history of knee arthroscopy remotely back around his high school years. No major surgical management since then. Has had multiple shocks which become less successful over time. Is ready to have his left knee replaced. Of note, the patient has a history of a DVT in the past. No known clotting diso rder. He barely had a PE after shoulder surgery. Nothing after his hip surgery. Allergies Allergy/AdvReac Type Severity Reaction Status Date / Time GATITO Inhibitors AdvReac Severe Cough Verified 05/01/23 14:33 Home Medications Medication Instructions Recorded Confirmed Type atorvastatin 20 mg tablet 20 mg PO QAM 12/16/20 05/01/23 History losartan 100 1 tab PO QAM 12/16/20 05/01/23 History mg-hydrochlorothiazide 25 mg tablet metformin 500 mg tablet 500 mg PO BIDM 12/16/20 05/01/23 History sertraline 100 mg tablet 100 mg PO QAM 12/16/20 05/01/23 History dulaglutide 4.5 mg/0.5 mL 4.5 mg subcut WK 03/05/23 05/01/23 History subcutaneous pen injector (Trulicity) Past Med/Surg History Medical History GERD (gastroesophageal reflux disease) History of diverticulitis no issues per 2013 s/p colectomy Bowel perforation (~2013) s/p shoulder surgery in 2013 r/t diverticulitis Diabetes mellitus, type 2 NIDDM Depression Pulmonary embolism s/p shoulder surgery ~2013 Deep vein thrombosis "" s/p knee trauma Hyperlipidemia Hypertension History of COVID-19 12/16/20 treated at [facility] inpatient. no ventilator needed-symptoms resolved. Rheumatoid arthritis Sleep apnea CPAP-compliant Surgical History History of right hip replacement S/P right knee arthroscopy S/P left knee arthroscopy History of colonoscopy History of colectomy (~2013) perforation s/p shoulder surgery r/t hx diverticulitis S/P shoulder replacement right shoulder Family History Father FHx: suicide Other No family history of adverse response to anesthesia Social History Smoking Status: Never smoker Tobacco Type: Smokeless Tobacco (Dip or Chew) Second Hand Exposure: Yes (as a child); Do You Dip or Chew Tobacco: Yes ((advised)); Tobacco Cessation Education Requested by Patient: No Hx Alcohol Use: Yes Preferred Language: German Communication Ability: Effective Hat Steamer Required: No Beliefs That Will Affect Care: None Current Living Situation: Alone Other Information That Helps Us Care for You: No Feels Safe at Home: Yes Safety Concerns: Feels Safe At This Time Assistive Devices: CPAP and Glasses Assistive Devices Comment: reading glasses Review of Systems All systems reviewed & are unremarkable except as noted in HPI & below. Physical Exam . Physical examination reveals a pleasant middle-age male. Looks in pretty good health. Examination left knee reveals fairly neutral alignment to his knee. Small knee effusion. He is got well-healed portal sites from the previous knee arthroscopy. Range of motion about 5-1 25. No instability. No particular pain with hip motion. Examination of the right knee reveals well-healed portal sites. Small knee effusion. Valgus alignment. Range of motion 0-1 25. Constitutional WD/WN, vitals as above Respiratory normal respiratory effort, lungs clear to auscultation Cardiovascular RRR, no murmur, no edema Gastrointestinal (Abdomen) normal bowel sounds, soft, nontender, no hepatosplenomegaly Results & Data Results & Data Laboratory Results . Diagnostic Findings . X-rays of both knees were reviewed. Shows advanced bilateral knee DJD. The left side is a bit worse than the right. He is got tibiofemoral subluxation with osteophytes in all 3 compartments. Significant joint space narrowing. PG Care Time/CCT Total # of Minutes Spent Total Time Spent with Patient: Total time spent is greater than 50% in coordination of care (as documented) at patient's floor/unit and/or counseling patient: Coding Level of Care Code None Diagnoses Bilateral primary osteoarthritis of knee M17.0 History of venous thromboembolism Z86.718 H/O arthroplasty Z98.890
[~2023-05-07 10:57] MED LIST changes: -ACETAMINOPHEN 500 MG TAB PO SCH; -CeleBREX 200 MG CAP PO SCH; -FAMOTIDINE 20 MG TAB PO SCH; -GABAPENTIN 600 MG DOSE PO SCH; -LR 500ML BOLUS, THEN 15ML/HR IV SCH; -METOCLOPRAMIDE HCL 10 MG TABLET PO SCH; +ROPIVACAINE 0.5% 5 MG/ML 30 ML VIAL ONE; -ROPIVACAINE 0.5% HCL/PF 150 MG, BUPIVACAINE 0.75% MPF 20 ML, EPINEPHrine 30MG/30ML (OR ... INFIL SCH; -ceFAZolin 2000MG 2,000 MG/15 ML SYR IV SCH; -dexAMETHasone 4 MG TAB PO SCH
[2023-05-07] MEDS: ACETAMINOPHEN 500 MG TAB PO SCH ×2 (11:37→21:11)
[2023-05-07] MEDS: METOCLOPRAMIDE HCL 10 MG TABLET PO SCH (11:38)
[2023-05-07] MEDS: FAMOTIDINE 20 MG TAB PO SCH (11:39)
[2023-05-07] MEDS: CeleBREX 200 MG CAP PO SCH (11:39)
[2023-05-07] MEDS: Scopolamine 1 MG TDSY TD SCH (11:40)
[2023-05-07] MEDS: LR 500ML BOLUS, THEN 15ML/HR IV SCH (11:40)
[2023-05-07] MEDS ORDERED: fentaNYL citrate PF 100 MCG/2 ML VIAL ONE (12:19)
[2023-05-07] MEDS ORDERED: MIDAZOLAM HCL 1 MG/ML 2ML VIAL ONE ×3 (12:19→13:32)
[2023-05-07] MEDS ORDERED: fentaNYL citrate PF 100 MCG/2 ML VIAL IV PRN (12:31)
[2023-05-07] MEDS ORDERED: ONDANSETRON INJ 2 MG/ML 2 ML VIAL IV PRN ×2 (12:31→16:14)
[2023-05-07] MEDS ORDERED: ATROPINE SULFATE 0.1 MG/ML 10ML SYR IV PRN (12:31)
[2023-05-07] MEDS ORDERED: PROMETHAZINE HCL 6.25 MG in SODIUM CHLORIDE 0.9% 50 ML IV PRN (12:31)
[2023-05-07] MEDS ORDERED: ePHEDrine sulfate 50 MG/ML AMP IV PRN (12:31)
[2023-05-07] MEDS ORDERED: HYDROmorphone INJ 2 MG/ML SYR/VIAL IV PRN (12:31)
--- NOTE | 2023-05-07 12:34 | History & Physical Bridge Note ---
Date of Service May 07, 2023 History & Physical Bridge Note I have examined the patient, reviewed the History & Physical and in the interval since the performance of the History & Physical I have noted the following changes of clinical significance: no changes noted
[2023-05-07] MEDS ORDERED: DexMEDEtomidine HCL IV 100 MCG/ML VIAL IV ONE (12:36)
[2023-05-07] MEDS ORDERED: ONDANSETRON INJ 2 MG/ML 2 ML VIAL ONE (13:07)
[2023-05-07] MEDS ORDERED: PROPOFOL IV EMULSION 10 MG/ML 20 ML VIAL IV ONE (13:07)
[2023-05-07] MEDS: ROPIV 0.5% 246mg, Ketorolac 30mg, EPINEPHrine 0.5mg in NSS INFIL SCH (13:45)
[2023-05-07] MEDS ORDERED: PHENYLEPHRINE 100MCG/ML 10ML SYR IV ONE (13:49)
[2023-05-07] MEDS: TRANEXAMIC ACID 1,000 MG **IV Intra-op IV SCH (13:51)
--- NOTE | 2023-05-07 14:42 | Operative Report ---
PG Post Operative Report Pre & Post Diagnosis Operation Date: 05/07/23 12:30 Pre-Op Diagnosis: Left Knee Degenrative Joint Disease Post-Op Diagnosis: Left Knee Degenerative Joint Disease I identified the patient and participated in the time-out.: Yes Procedure Operation Date: 05/07/23 12:30 Actual Procedures p Left Total Knee Arthroplasty(Left) - Jason Caputo MD Surgeon Jason Caputo MD Rolled [employer] Operator Zaki Fleming PA-C Estimated Blood Loss 50 Findings Consistent with Post-Op Diagnosis Operative findings were advanced left knee tricompartment DJD. He had pretty extensive grade 4 [id number] disease in all 3 compartments. He had a chronic ACL deficiency. Specimens Left knee sent for pathology Anesthesia Type Spinal MAC Complications none Disposition Accompanied Patient To Recovery: No Indications Patient is a 57-year-old gentleman is had a long history of bilateral knee pain discomfort left side bit worse than the right. Is been through extensive conservative treatment over the years which became less successful. X-rays show advanced bilateral knee arthritis. The left side was more symptomatic and more severe than the right. He elected proceed with left total knee arthroplasty. Description of Procedure Operative implants consist of: 1 Biomet Vanguard size 67.5 left Po stabilized femoral component. 2. Biomet size 79 tibial tray. 3. 10 mm pro stabilized polyethylene insert. 4. 34 x 8-1/2 all poly patella. The patient was taken to the operating, identified, placed on the operating table in the supine position. All contact areas were appropriately padded. IV antibiotics tried by anesthesia team. A spinal anesthetic and adductor canal block had provided in the holding area. A left thigh tent was then placed. The left lower extremity was then prepped and draped in usual sterile fashion. The left leg was elevated exsanguinated with use of an Esmarch and a turn was placed at 300 mmHg. An anterior approach the left knee was then performed to longitudinal incision centered over the patella. Sharp dissection was carried through subcutaneous tissue down the extensor mechanism. A medial parapatellar arthrotomy incision was made. Some subperiosteal dissection was carried out medially. The fat pad was resected from Neath patella tendon. The lateral patellofemoral ligament was released. Patella subluxated laterally knee was flexed. The osteophytes taken off distal femur. The ACL was absent. The PCL was released from the distal femur and the tibia subluxated anteriorly. The external treatment line jig was then placed on the anterior face of the tibia and adjusted 12 mm medially. Proximal tibial cut was made remove about a millimeter bone from most deficient aspect of the medial tibial plateau. The tibia sized to a size 79. Some osteophytes taken off medially. Attention drawn the femur. The distal femur examined the sharp drop with intramedullary canal was suction. A left 6 degree valgus cutting guide was placed. This femoral cutting block was pinned in place. Distal femoral cut was made take an additional 3 mm of bone off the distal femur. The femur was then sized to a size 67.5. The AP cutting block was pinned parallel to the epicondylar axis which was 6 degrees of external rotation. The anterior cut, anterior chamfer, posterior cut, posterior chamfer cuts were made. The box cutting guide was placed in just slight lateral and the box cut was made. The knee was flexed. The remnants of the medial and lateral menisci were excised. The osteophytes taken off the posterior aspect the femur. Trial femoral component was placed. The tibial tray was pinned in maximum external rotation and the drill and stem punch were used to create defect in proximal tibia. The tibial tray. Knee was then trialed and 10 mm insert fit most appropriately. Attention drawn the patella. The patella was cleaned of all soft tissue. Patella thickness measured 23 mm in thickness was cut down to 14. Was sized to a size 34 patella. The lug holes were drilled for 34 patella. The osteophyte was removed. The patella button was placed. Knee was taken through range of motion patella tracked nicely with no thumbs test. Attention turned to placing permanent components. All trial components were removed. Bone plug was placed in the distal femur limit blood loss. A double batch Palacos G cement was mixed. Biomet Vanguard size 67.5 left Po stabilized femoral component, size 79 tibial tray, a 10 mm pro stabilized polyethylene insert, and a 34 x 8 and half all poly patella then agatha ented in place. The knee was brought out into full extension till cement hardened. Final cement check was then performed. Pericapsular tissues were injected with the joint mix. Patient did receive 1 g tranexamic acid. The tourniquet was then let down for final tourniquet time of 58 minutes. Hemostasis assured use electrocautery. Extensor Meclomen closed with combination 1 PDS suture #1 Vicryl suture in a [id number] fashion. Extensor Meclomen checked found to be intact. Subcutaneous tissues then closed with 2 Dexon suture in a buried interrupted fashion the skin was closed with sk in marciano. Leg was then cleaned and dried and sterile dressing was Xeroform, 4 fours, sterile cast padding, Leif bandage were applied. The patient then transferred to the recovery room in stable condition. Patient tolerated procedure well and there were no complications. Zaki Fleming, my physician speech correction assistant, was present for the entire procedure. His assistance was essential and required for appropriate patient positioning, prepping and draping, surgical exposure, performing the technical details of the operation, placement the implants, closure of the wound, and placement of the sterile bandage. I attest to the content of the Intraoperative Record and any orders documented therein. Any exceptions are noted below.
--- NOTE | 2023-05-07 15:24 | XRay Report ---
LEFT KNEE 2 VIEWS History: Left total knee arthroplasty. Degenerative arthritis. Postop. FINDINGS: The patient is status post a left total knee arthroplasty. The hardware is intact. No fract ure or dislocation. Skin marciano are in place. IMPRESSION: Left total knee arthroplasty. No evidence for hardware complication. ACT 112: Negative or not required by law. Electronically signed by: Farhad Cole M.D. 05/07/2023 3:22 PM
--- NOTE | 2023-05-07 15:46 | Anesthesiology Progress Note ---
Date of Service May 07, 2023 Anesthesia Post Procedure Vital Signs Vital Signs: Temp Pulse Pulse Resp BP Pulse Ox O2 Del Method 05/07/23 15:40 68 14 109/64 97 Room Air 05/07/23 15:30 72 15 101/70 97 Room Air 05/07/23 15:20 68 14 100/57 L 94 Room Air 05/07/23 15:10 37.2 C 76 16 102/59 L 95 Room Air 05/07/23 15:00 73 16 96/60 L 99 Oxymask 05/07/23 14:50 83 21 97/58 L 97 Oxymask 05/07/23 14:41 36.7 C 83 22 102/59 L 93 Oxymask 05/07/23 11:19 36.8 C 77 20 128/97 95 Room Air O2 Flow Rate 05/07/23 15:40 05/07/23 15:30 05/07/23 15:20 05/07/23 15:10 05/07/23 15:00 4 05/07/23 14:50 13 05/07/23 14:41 13 05/07/23 11:19 Transfer of Care Handoff Completed per policy Notes Mental Status: alert / awake / arousable and participated in evaluation Nausea / Vomiting: adequately controlled Pain: adequately controlled Airway Patency, RR, SpO2: stable & adequate BP & HR: stable & adequate Hydration State: stable & adequate Neuraxial Anesthesia: was administered and sensory block is resolving Anesthetic Complications: no major complications apparent and Pt Satisfied with anesthetic care
[2023-05-07] MEDS: ceFAZolin 2000MG 2,000 MG/15 ML SYR IV SCH ×2 (16:02→21:04)
[2023-05-07] MEDS: ORTHO JOINT ANESTHETIC ONE (16:03)
--- OUTSIDE RECORDS SUMMARY | 2023-05-07 16:11 | External Medical Summary ---
Author Name Unknown Address Unknown Organization K01:[facility] [place] [facility] [place] [id number] Laboratory Report Ordering Provider Test Date Status ISAIAS GROVE 04/21/2023 07:40:03 Final Normal: <30 mg/g creatinine< br/>High: 30-300 mg/g creatinine
Very High: >300 mg/g creatinine
Nephrotic: >2200 mg/g creatinine Observation Date Value Abnormality Reference (Units ) Status Albumin, Urine 04/21/2023 07:40:03 1.83 (mg/dL) Final Creatinine, Urine 04/21/2023 07:40:03 299 (mg/dL) Final Albumin/Creatinine [Mass Ratio] in Urine 04/21/2023 07:40:03 6 <30 (mg/g Creat) Final Performing Location [facility] [place] [address] [place] [id number]
--- OUTSIDE RECORDS SUMMARY | 2023-05-07 16:11 | External Medical Summary | Summary of Care ---
Author Name Unknown Organization [facility] Address [address] [place] [place] [place] [address] Phone [phone] Care Team Providers Care Tongue Stitcher Name Role Phone Tadeo Montes DO Primary Care Provider Reason for Visit * Reason Comments Follow Up Pt here for follow u p. Discuss blood sugars, no problems. Had R hip surgery in 09/2021. Needs dental prophalaxis for hip surgery, Discuss L knee injection. Encounter Details Date Type Department Care Team (Latest Contact Info) Description 02/26/2022 3:20 PM EST Office Visit Family [facility] [address] [place] [phone] Tadeo Montes, [address] [place] [id number] Prediabetes*; MARTA on CPAP; HTN, goal below 140/90; Primary osteoarthritis of both knees Allergies Active Allergy Reactions Criticality Noted Date Comments Leif Inhibitors 03/03/2013 Severe cough with lisinopril and quinapril documented as of this encounter (statuses as of 03/20/2023) Medications Medication Sig Dispensed Refills Start Date End Date Status CPAP every night at bedtime. 0 Active metFORMIN HCl 500 MG Oral Tablet (Glucophage)Indic ations:Prediabete s TAKE 1 TABLET TWICE DAILY WITH THE MORNING AND EVENING MEALS 180 Tablet 3 2 04/23/19 23 Discontinued Losartan Potassium-HCTZ 100-25 MG Oral Tablet (Hyzaar) TAKE 1 TABLET BY MOUTH DAILY GENERIC EQUIVALENT FOR HYZAAR 90 Tablet 3 2 06/18/19 23 Discontinued Sertraline HCl 100 MG Oral Tablet (Zoloft)Indicatio ns:Stress TAKE 1 TABLET BY MOUTH DAILY 90 Tablet 1 2 07/18/19 23 Discontinued Atorvastatin Calcium 20 MG Oral Tablet (Lipitor)Indicati ons:Mixed dyslipidemia TAKE 1 TABLET BY MOUTH DAILY 90 Tablet 0 2 04/23/19 23 Discontinued Acetaminophen 500 MG Oral Tablet (Tylenol) TAKE 2 TABLETS (1000MG) BY MOUTH EVERY 8 HOURS 100 Tablet 0 2 02/27/20 22 Discontinued(Med ication List Clean Up) oxyCODONE HCl 5 MG Oral Tablet (Oxy IR) TAKE ONE TABLET BY MOUTH EVERY 4 HOURS NEEDED FOR PAIN 20 Tablet 0 2 02/27/20 22 Discontinued(Med ication List Clean Up) Amoxicillin 500 MG Oral Capsule (Amoxil) Take 4 Capsules (2,000 mg) by mouth once for 1 dose. 1 hour before dental procedure 4 Capsule 3 2 02/28/20 22 Trulicity 0.75 MG/0.5ML Subcutaneous Solution Pen-injector (Dulaglutide)Nahomi cations:Prediabet es Inject 0.75 mg under the skin once a week. 6 mL 3 2 09/18/19 23 Discontinued Hospital, Clinic, or Other Facility Administered Medication Ordered Dose Route Frequency Start Date End Date Status lidocaine 2 % inj 80 mgIndications:Primary osteoarthritis of both knees 80 mg IX ONCE 02/26/2022 02/26/2022 Ended Triamcinolone Acetonide (Kenalog) 40 MG/ML inj 40 mgIndications:Primary osteoarthritis of both knees 40 mg IX ONCE 02/26/2022 02/26/2022 Ended documented as of this encounter (statuses as of 03/20/2023) Active Problems Problem Noted Date Diagnosed Date Primary osteoarthritis of both knees 02/07/2021 History of 2019 novel coronavirus disease (COVID -19) 12/18/2020 Overview: 11/2020 Hip pain, right 08/07/2020 MARTA on CPAP 09/03/2016 Type 2 diabetes mellitus wit hout complication, without long-term current use of insulin 01/17/2016 History of pulmonary embolism 03/02/2014 History of colonic polyps 03/15/2013 Overview: ICD-10 update of inactive term HTN, goal below 140/90 documented as of this encounter (statuses as of 03/20/2023) Resolved Problems Problem Noted Date Diagnosed Date Resolved Date Acute respiratory failure due to COVID-19 09/20/2021 09/20/2021 Prediabetes 05/06/2017 10/03/2022 Overview: Per Prediabetes protocol #1 Body mass index (BMI) of 40. 0 to 44.9 in adult 12/23/2016 12/09/2018 Overview: Per Obesity protocol #1 - Per Obesity Protocol, #19 Morbid obesity due to excess calories 09/03/2016 12/09/2019 Pneumoperitoneum 03/02/2014 09/03/2016 Basilic vein thrombosis 03/02/201408/22 Diverticulitis of colon 06/15/201202/21 Obesity, Class II, BMI 35-39 .9, isolated (see actual BMI) 09/04/2009 12/26/2016 Overview: Per Obesity Protocol, #19 Metabolic syndrome 08/25/2002 9 documented as of this encounter (statuses as of 03/20/2023) Immunizations Name Administration Dates Next Due COVID-19 mRNA, LNP-s, No Pre serve, 2-Dose Series ([facility]) 12/07/2020 Diptheria/Tetanus (Adult) 03/24/1993 Hepatitis B Vaccine 09/21/1993,04/24/1993,1993 Meningococcal Polysaccharide Vaccine ([place]) 01/25/1999 Pneumococcal Polysaccharide PPV23 (Pneumovax) 02/28/2016 Seasonal Influenza, PF, 6 M & above, IM , (FluLaval or Fluzone) 12/09/2019,12/09/2018,03/30/2018,03/10 Seasonal Influenza, Quadriva lent, No Preserve, IM 01/10/2016 Seasonal Influenza, Split, I IV3, With Preserve, Inj 02/02/2014,02/15/2013,03/16/2010 TD - Tetanus/Diptheria (ADULT) 08/25/2002 TDAP (age 10 and older)(Boostrix) 12/09/2019 TDAP (age 11 and older)(Adacel) 03/16/2010 documented as of this encounter Social History Tobacco Use Types Packs/Day Years Used Date Smoking Tobacco: Never Smokeless Tobacco: Current Chew Tobacco Cessation:Ready to Q uit: Not Asked; Counseling Given: Not Answered Comments:1 tin/pack every 2 days X 40 years Alcohol Use Standard Drinks/Week Comments Yes 0 (1 standard drink = 0.6 oz pur e alcohol) rare PHQ-2 Answer Date Recorded PHQ-2 Score -1 12/09/2018 Sex and Gender Information Value Date Recorded Sex Assigned at Not on file Gender Identity Not on file Sexual Orientation Not on file Job Start Date Occupation Industry Not on file Not on file Not on file documented as of this encounter Last Filed Vital Signs Vital Sign Reading Time Taken Comments Blood Pressure 138/84 02/26/2022 3:16 PM EST Pulse 86 02/26/2022 3:16 PM EST Temperature 36.2 C (97.2 F) 02/26/2022 3:16 PM ES T Respiratory Rate 16 02/26/2022 3:16 PM EST Oxygen Saturation 96% 02/26/2022 3:16 PM EST Inhaled Oxygen Concentration - - Weight - - Height - - Body Mass Index - - documented in this encounter Functional Status Functional Status Response Date of Assess ment Are you deaf or do you have serious difficulty h earing? No 07/05/2014 Are you blind or do you have serious difficulty seeing, even when wearing glasses? No 07/05/2014 Do you have serious difficul ty walking or climbing stairs? (5 years old or older) No 07/05/2014 Do you have difficulty dress ing or bathing? (5 years old or older) No 07/05/2014 Because of a physical, menta l, or emotional condition, do you have difficulty doing errands alone such as visiting a doctor s office or shopping? (15 years old or older) No 07/06/19 15 Cognitive Status Response Date of Assessm ent Because of a physical, menta l, or emotional condition, do you have serious difficulty concentrating, remembering, or making decisions? (5 years old or older) No 07/05/2014 documented as of this encounter Progress Notes * Tadeo Montes, DO - 02/26/2022 3:13 PM EST Images from the original note were not included. Assessment and Plan Prediabetes Not tolerating 1000mg of metformin with GI side effects Will add trulicity and reduce dose of metformin - Trulicity 0.75 MG/0.5ML Subcutaneous Solution Pen-injector (Dulaglutide); Inject 0.75 mg under the skin once a week. MARTA on CPAP HTN, goal below 140/90 Primary osteoarthritis of both knees Injected as documented below History of Present Illness Fabricio Sanchez is a 56 year old male that presents for Follow Up (Pt here for follow up. Discuss blood sugars, no problems. Had R hip surgery in 09/2021. Needs dental prophalaxis for hip surgery, Discuss L knee injection.) Presents in f/u today Overall doing well but Metformin hard on the stomach L knee is also causing pain, feels That it may be the result of the ongoing hip issues That have only improved since replacement Physical Exam {Add Vitals Results Review Vitals Review :[id number]} Vitals: 02/26/22 1516 Temp: 36.2 C (97.2 F) Pulse: 86 Resp: 16 SpO2: 96% BP: 138/84 Physical Exam Vitals and nursing note reviewed. Constitutional: Appearance: Normal appearance. HENT: Head: Normocephalic and atraumatic. Right Ear: Tympanic membrane, ear canal and external ear normal. There is no impacted cerumen. Left Ear: Tympanic membrane, ear canal and external ear normal. There is no impacted cerumen. Nose: Nose normal. Mouth/Throat: Mouth: Mucous membranes are moist. Pharynx: Oropharynx is clear. Eyes: Extraocular Movements: Extraocular movements intact. Conjunctiva/sclera: Conjunctivae normal. Pupils: Pupils are equal, round, and reactive to light. Cardiovascular: Rate and Rhythm: Normal rate and regular rhythm. Heart sounds: Normal heart sounds. Pulmonary: Effort: Pulmonary effort is normal. Breath sounds: Normal breath sounds. Abdominal: General: Abdomen is flat. Palpations: Abdomen is soft. Musculoskeletal: General: Normal range of motion. Cervical back: Normal range of motion and neck supple. Lymphadenopathy: Cervical: No cervical adenopathy. Skin: General: Skin is warm and dry. Neurological: General: No focal deficit present. Mental Status: He is alert and oriented to person, place, and time. Wrap-Up Follow Up: Return in about 6 months (around 08/27/2022). Time: Total time today was 30 minutes excluding any time spent in the performance of separately billed services. Time Out Procedure: Correct patient identity (Ask Name/Date of ) - Yes Correct Procedure and Consent - Yes Verified Side and Site - Yes Correct patient position - Yes All necessary Equipment/Prior Studies Present - Yes Reviewed special requirements of this patient (i.e. Allergies) - Yes Tadeo Montes DO After reviewing the risks with the patient (including bleeding, infection and skin atrophy) - understerile conditions and preparing the site with isospropyl alcohol, the left knee joint was injectedwith lidocaine 2%. The patient tolerated the procedure well without complications and was instructed on subsequent follow-up care (local care and any necessary restrictions). Risks, benefits, and alternatives to the procedures were discussed with the patient and all questions were answered. Patient specific risk factors were reviewed and considered. Tadeo Montes DO documented in this encounter Nursing Notes * Martha Stinson LPN - 02/26/2022 3:15 PM EST The patient has been properly identified by confirmation of name and date of . Chief Complaint Patient presents with Follow Up Pt here for follow up. Discuss blood sugars, no problems. Had R hip surgery in 09/2021. Needs dentalprophalaxis for hip surgery, Discuss L knee injection. documented in this encounter Plan of Treatment Upcoming Encounters Date Type Department Care Team (Late st Contact Info) Description 04/24/2023 3:40 PM EST Office Visit [facility] [address] [facility] [place] [address] Tadeo Montes DO [address] [place] [id number] Scheduled Procedures Name Priority Associated Diagnoses Date/Ti me COLONOSCOPY FLEXIBLE PROXIMAL DIAGNOSTIC Recall Screen for colon cancer Health Maintenance Due Date Last Done Comments Diabetic Eye Exam 1982 Zoster Vaccines (1 of 2) 2014 Diabetic Foot Exam 02/27/2017 02/28/2016 Pneumococcal Vaccine: Pediatrics (0 to 5 Years) and At-Risk Patients (6 to 64 Years) (2 - PCV) 02/27/2017 02/28/2016 COVID-19 Vaccine (2 - 2022- season) 2022 12/13/2020, 12/07/2020 Influenza Vaccine (FLU shot) (#1) 2022 12/09/2019, 12/09/2018, 03/30/2018, Additional history exists COLONOSCOPY-EVERY 3 YRS AGES 18-100 03/08/2023 03/08/2020, 03/08/2020, 05/25/2015, Additional history exists HbA1c 03/18/2023 09/16/2022, 01/22, 08/07/2020, Additional history exists Albumin/Creatinine Ratio 09/17/2023 09/16/2022 B-12 09/17/2023 09/16/2022, 07/22, 12/10/2018, Additional history exists GFR 09/17/2023 09/16/2022, 08/23, 02/07/2021, Additional history exists Depression Screening 09/18/2023 09/17/2022 Lipid Panel 09/17/2027 09/16/2022, 01/22, 08/07/2020, Additional history exists DTaP,Tdap,and Td Vaccines (3 - Td or Tdap) 12/08/2029 12/09/2019, 03/16/2010, 08/25/2002, Additional history exists Hepatitis B Completed 09/21/1993, 03/1993, 03/24/1993 MENINGOCOCCAL (MENACTRA/MENVEO) Aged Out 01/25/1999 No longer eligible based on patient's age to complete this topic GARDASIL-HPV IMMUNIZATION SERIES Aged Out No longer eligible based on patient's age to complete this topic documented as of this encounter Medical Devices Not on filedocumented as of this encounter Visit Diagnoses Diagnosis Prediabetes- Primary Other abnormal glucose MARTA on CPAP Obstructive sleep apnea (adult) (pediatric) HTN, goal below 140/90 Unspecified essential hypertension Primary osteoarthritis of both knees Primary localized osteoarthrosis, lower leg documented in this encounter Administered Medications Inactive Administered Medications - up to 3 most recent administrations Medication Order MAR Action Action Date Dose Rate Site lidocaine 2 % inj 80 mg 80 mg (4 mL), Intra-Articular, ONCE, On Tu02/26/22 at 1630, For 1 dose Given 02/26/2022 4:01 PM EST 80 mg Other -Specify Triamcinolone Acetonide (Kenalog) 40 MG/ML inj 40 mg 40 mg, Intra-Articular, ONCE, On Fri02/26/22 at 1630, For 1 dose Given 02/26/2022 4:00 PM EST 40 mg O ther-Specify documented in this encounter Advance Directives Latest Code Status on File Code Status Date Activated Date Inactivated Comments Full Code 07/05/2014 6:20 AM 07/07/2014 2:22 PM This order reflects the patients wishes and were consensually agreed upon. Question Answer Comments Discussion of Advance Directives occurred with: Not Discussed Does the patient have a Living Will? No Does the patient have Health Care Power of Fruit Loader? No Code Status History Code Status Date Activated Date Inactivated Comments Full Code 03/01/2014 2:53 AM 03/08/2014 7:30 PM Question Answer Comments Discussion of Advance Direct jason occurred with: Not Discussed Does the patient have a Living Will? No Does the patient have Health Care Power of Fruit Loader? No Care Teams Tongue Stitcher Relationship Specialty Start Date End Date Tadeo Montes DO [facility] [place] [id number] PCP - General Family Medicine 08/07/20 documented as of this encounter
--- OUTSIDE RECORDS SUMMARY | 2023-05-07 16:11 | External Medical Summary | Summary of Care ---
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 Having L knee replacement on 05/07/2023. Encounter Details Date Type Department Care Team (Latest Contact Info) Description 04/22/2023 3:40 PM EST Office Visit [facility] [address] [place] [id number] Tadeo Montes DO [address] [place] [id number] Type 2 diabetes mellitus without complication, without long-term current use of insulin ([facility])*; MARTA on CPAP; HTN, goal below 140/90; Primary osteoarthritis of both knees; Mixed dyslipidemia; DM type 2 nursing care encounter (HCC); Type 2 diabetes mellitus with diabetic mononeuropathy, without long-term current use of insulin ([facility]) Allergies Active Allergy Reactions Criticality Noted Date Comments Leif Inhibitors 03/03/2013 Severe cough with lisinopril and quinapril documented as of this encounter (statuses as of 04/22/2023) Medications Medication Sig Dispensed Refills Start Date End Date Status CPAP every night at bedtime. 0 Active Sertraline HCl 100 MG Oral Tablet (Zoloft)Indicati ons:Stress TAKE 1 TABLET BY MOUTH DAILY 90 Tablet 3 3 Active Cephalexin 500 MG Oral CapsuleIndicatio ns:History of hip replacement, unspecified laterality Take 2 capsules by mouth 1 hour prior to procedure. 2 Capsule 0 3 Active Additional Information Patient not taking.Reported on 04/22/2023 Losartan Potassium-HCTZ 100-25 MG Oral Tablet (Hyzaar) TAKE 1 TABLET DAILY (GENERIC EQUIVALENT FOR HYZAAR) 90 Tablet 3 3 Active Atorvastatin Calcium 20 MG Oral Tablet (Lipitor)Indicat ions:Mixed dyslipidemia TAKE 1 TABLET BY MOUTH DAILY 90 Tablet 2 3 Active metFORMIN HCl 500 MG Oral Tablet (Glucophage)Nahomi cations:Prediabe kam TAKE 1 TABLET TWICE A DAY WITH THE MORNING AND EVENING MEALS 180 Tablet 3 4 Active Mounjaro 15 MG/0.5ML Subcutaneous Solution Pen-injector (Tirzepatide)Ind ications:Type 2 diabetes mellitus without complication, without long-term current use of insulin (HCC) Inject 15 mg under the skin once a week. 3 mL 5 4 Active Trulicity 3 MG/0.5ML Subcutaneous Solution Pen-injector (Dulaglutide)Ind ications:Type 2 diabetes mellitus with diabetic mononeuropathy, without long-term current use of insulin (HCC) Inject 3 mg under the skin once a week. 9 mL 5 3 04/22/19 24 Discontinued(Med ication List Clean Up) Trulicity 4.5 MG/0.5ML Subcutaneous Solution Pen-injector (Dulaglutide) Inject 4.5 mg under the skin once a week. 6.5 mL 3 3 04/22/19 24 Discontinued Mounjaro 15 MG/0.5ML Subcutaneous Solution Pen-injector (Tirzepatide)Ind ications:Type 2 diabetes mellitus without complication, without long-term current use of insulin (HCC) Inject 15 mg under the skin once a week. 3 mL 5 4 04/22/19 24 Discontinued(Ref ill) documented as of this encounter (statuses as of 04/22/2023) Active Problems Problem Noted Date Diagnosed Date Type 2 diabetes mellitus wit h diabetic mononeuropathy, without long-term current use of insulin 04/22/2023 Primary osteoarthritis of both knees 02/07/2021 History [...] as of this encounter (statuses as of 04/22/2023) Resolved Problems Problem Noted Date Diagnosed Date [...] as of this encounter (statuses as of 04/22/2023) Immunizations Name Administration Dates Next Due COVID-19 mRNA, LNP-s, No Pre serve, 2-Dose Series ([facility]) 12/07/2020 Pneumococcal Polysaccharide PPV23 (Pneumovax) 02/28/2016 Seasonal Influenza, PF, 6 M & above, IM , (FluLaval or Fluzone) 12/09/2019,12/09/2018,03/30/2018,03/10 Seasonal Influenza, Quadriva lent, No Preserve, IM 01/10/2016 Seasonal Influenza, Split, I IV3, With Preserve, Inj 02/02/2014,02/15/2013,03/16/2010 TDAP (age 10 and older)(Boostrix) 12/09/2019 TDAP [...] e alcohol) rare PHQ-2 Answer Date Recorded PHQ Adult Total Score 0 09/17/2022 Sex and Gender Information Value Date Recorded Sex Assigned at Male 04/10/2023 6:44 PM EST Gender Identity Male 04/10/2023 6:44 PM EST Sexual Orientation Straight 04/10/2023 6: 44 PM EST Job Start Date Occupation Industry Not on file Not on file Not on file documented as of this encounter Last Filed Vital Signs Vital Sign Reading Time Taken Comments Blood Pressure 112/66 04/22/2023 3:28 PM EST Pulse 78 04/22/2023 3:28 PM EST Temperature 35.9 C (96.7 F) 04/22/2023 3:28 PM ES T Respiratory Rate 16 04/22/2023 3:28 PM EST Oxygen Saturation 95% 04/22/2023 3:28 PM EST Inhaled Oxygen Concentration - - Weight 117.1 kg (258 lb 3 oz) 04/22/2023 3:28 PM EST Height 173.4 cm (5' 8.25") 04/22/2023 3:28 PM ES T Body Mass Index 38.97 04/22/2023 3:28 PM EST documented in this encounter Functional Status Functional [...] No 07/05/2014 documented as of this encounter Patient Instructions * Patient Instructions* Martha Stinson LPN - 04/22/2023 3:51 PM EST Images from the original note were not included. Diabetes: Keeping Feet Healthy Inspect your feet every day for signs of a problem. Diabetes can damage nerves in your feet and cause neuropathy. This condition makes it hard for you to feel injuries or sore spots. Diabetes can also change blood flow, making it harder for small problems, like a blister, to heal properly. In fact, minor injuries can quickly become serious infections that send you to the hospital. Practice self-care to protect your feet and keep them healthy. Take Special Care Inspect your feet daily for problems such as redness, blisters, cracks, dry skin, or numbness. Use a mirror to see the bottoms of your feet. Or, ask for help. Manage your diabetes. Monitor and control your blood sugar. Take all your medications as prescribed. Avoid walking barefoot, even indoors. Wash your feet with warm water and mild soap. Dry well, especially between toes. Dont treat corns or calluses yourself. Talk to your doctor or network program manager (a doctor who specializes in foot care) if you need assistance trimming your toenails. Use moisturizing cream or lotion if you have dry skin, but dont use it between toes. Dont use heating pads on your feet. If you have neuropathy, you could get a burn and not feel it. Stop smoking. Smoking restricts blood flow and can make it harder for wounds to heal. Have Regular Checkups Foot problems can develop quickly. So be sure to follow your healthcare teams schedule for regular checkups. During office visits, take off your shoes and socks as soon as you get in the exam room. Ask your healthcare provider to examine your feet for problems. This will make it easier to find and treat small skin irritations before they get worse. Regular checkups can also help keep track of the blood flow and feeling in your feet. If you have neuropathy, you may need to have checkups more often. Wear Proper Footwear Wearing proper footwear is very important. If areas of your feet have been damaged by too much pressure, your healthcare provider may recommend changing your footwear. In some cases, avoiding high heels or tight work boots may be all thats needed. Or, your healthcare provider may recommend special shoes or custom inserts. These help protect your feet and keep existing irritations from getting worse. If you need special footwear, ask your healthcare provider if you qualify for [employer] diabetic shoe program. Make Sure Shoes and Socks Fit Any pair of shoes--new or old--should feel comfortable as soon as you put them on. There shouldnt be any rubbing when you walk. Wear the right shoe for any activity. For instance, a running shoe is designed to keep your feet injury-free while jogging. Buy shoes at the end of the day, when your feet are larger. Make sure they provide support without feeling too loose. Make sure your socks fit, t oo. Wear soft, seamless, well-padded socks for activity. Cotton or microfiber socks are best to help to absorb sweat. To protect your feet, avoid shoes that are open-toed or open-heeled. If you have questions about what kinds of shoes and socks are best, talk to your healthcare team. Get Regular Exercise Regular exercise improves blood flow in your feet. It also increases foot strength and flexibility.Gentle exercises, like walking or riding a stationary bicycle, are best. You can also do special foot exercises. Just be sure to talk with your healthcare provider before starting any exercise program. Also mention if any exercise causes pain, redness, or other signs of foot problems. Note: If you have any kind of break in the skin of your foot or ankle, keep the area clean. Then call your doctor--especially if the area doesnt appear to be healing. [id number] [employer], [address] [place] [address], [place] [address]. All rights reserved. This information is not intended as a substitute for professional medical care. Always follow your healthcare professional's instructions. Diabetic Retinopathy: Evaluating Your Eyes Diabetic retinopathy is a condition that happens when diabetes damages blood vessels in the rear ofthe eye. It can lead to vision loss. To help catch it early, have a complete dilated eye exam at least once a year. During the exam, the eye healthcare provider will review your medical history, examine your eyes, and check your vision. Women who are and have pre-existing type 1 or type 2 diabetes have an increased risk of retinopathy. Women with diabetes should have an eye exam before or in the first trimester. They should continue to be monitored every trimester and for 1 year after delivery, depending on the severity of the retinopathy. The retina is the light-sensitive part of the eye that allows you to see. High blood sugar can damage blood vessels of the retina and cause them to leak or bleed. This damage can lead to abnormal blood vessel growth. This condition is called diabetic retinopathy. You may not have symptoms early in the disease. Later, there may be floaters, blurred vision, or poor night vision. There may also be partial or complete vision loss. Early cases of diabetic retinopathy can be treated by carefully controlling blood sugar, blood pressure, and cholesterol. Surgery or laser treatments may help restore lost vision. Laser surgery can shrink abnormal blood vessels or close ones that are leaking. Medicines injected in the eye can help decrease swelling of the retina. Home care Take all medicines, including insulin or oral diabetic medicine, exactly as prescribed. Follow the diet advised by your healthcare provider. If you have high cholesterol, follow a low-fat, low-cholesterol diet. Monitor blood sugars as advised. Try to achieve your ideal weight. If you smoke, quit smoking. Tobacco use worsens the effect of diabetes on your blood vessels. If you have high blood pressure, consider buying an automatic blood pressure machine. These are available at most pharmacies. Use this to monitor your blood pressure. Report your blood pressure readings to your healthcare provider. Exercise regularly. Follow-up care Follow up with your healthcare provider, or as advised. You must have a complete eye exam at least once a year, more often if needed. Untreated diabetic retinopathy can lead to complete loss of vision. Occupational therapists can help you adapt to any vision loss you have, including learning techniques to safely administer insulin. When to seek medical advice Call your healthcare provider right away if any of these occur. Increasing blurriness or any sudden changes in your vision Sudden flashes of light inside your eye New floaters (small dots or strings that seem to be moving across your field of vision) Eye pain, redness, or discharge from your eyelid New dark spots appearing in your field of vision Halos around lights Dimness of vision Partial or complete loss of vision Women with diabetes should have a complete eye exam before becoming , or as soon as possible when they find out they are . Retinopathy sometimes worsens during . Your eye exam Your eye healthcare provider uses an eye chart and other tools to check your vision. Then he or sheexamines your eyes for signs of disease. You are given eye drops to widen (dilate) your pupils. Youmay have one or more of the following tests: Tonometry to measure fluid pressure inside the eye. Slit lamp exam to allow the healthcare provider to view the structures of your eye. Ultrasound to create an image of the eye using sound waves. Ultrasound may be used if blood is found in the clear gel that fills the eye (vitreous). Ocular coherence tomography (OCT) to create an image of the retina using light waves. This shows ifthere is fluid leaking into certain parts of the eye. It can also measure the thickness of the retina. Fluorescein angiography This test may be done to check the health of the inside lining of the eye (retina). It also checks the tiny blood vessels (capillaries) that carry blood to the retina. During the test: Photographs are taken of the retina. A dye is then injected into the bloodstream through the arm or hand. The dye travels to the capillaries in the eye. More photographs are taken of the retina. The dye causes the capillaries to stand out on the photographs. You may feel brief nausea during the procedure. For a few hours after the test, your skin, eyes, and urine may appear yellow. Talk with your healthcare provider for more information about this test. Date Last Reviewed: 08/23/201519990446-1756 [employer]. [address] [place] [address], [place] [address]. All rights reserved. This information is not intended as a substitute for professional medical care. Always follow your healthcare professional's instructions. documented in this encounter Progress Notes * Martha Stinson LPN - 04/22/2023 3:51 PM EST Images from the original note were not included. DM Foot Exam completed today. Provider aware. Martha Stinson LPN Socks and Shoes Removed for Annual Diabetic Foot Screening RIGHT FOOT: No Reddened, Cracking, Or Open Areas Noted. RIGHT Dorsalis Pedis Pulse: Palpable RIGHT Posterior Tibial Pulse: Palpable RIGHT Monofilament:Patient reports feeling monofilament pressure on plantar surface of foot LEFT FOOT: No Reddened, Cracking or Open Areas Noted. LEFT Dorsalis Pedis Pulse: Palpable LEFT Posterior Tibial Pulse: Palpable LEFT Monofilament:Patient reports feeling monofilament pressure on plantar surface of foot Do you need diabetic shoes: No The importance of having a yearly diabetic eye exam has been discussed with patient. Order and/or Referral placed along with patient instructions. Provider made aware. Martha Stinson LPN The importance of having a yearly diabetic eye exam has been discussed with patient. Order and/or Referral placed along with patient instructions. Provider made aware. Martha Stinson LPN Diabetic Retinopathy: Evaluating Your Eyes Diabetic retinopathy is a condition that happens when diabetes damages blood vessels in the rear ofthe eye. It can lead to vision loss. To help catch it early, have a complete dilated eye exam at least once a year. During the exam, the eye healthcare provider will review your medical history, examine your eyes, and check your vision. Women who are and have pre-existing type 1 or type 2 diabetes have an increased risk of retinopathy. Women with diabetes should have an eye exam before or in the first trimester. They should continue to be monitored every trimester and for 1 year after delivery, depending on the severity of the retinopathy. The retina is the light-sensitive part of the eye that allows you to see. High blood sugar can damage blood vessels of the retina and cause them to leak or bleed. This damage can lead to abnormal blood vessel growth. This condition is called diabetic retinopathy. You may not have symptoms early in the disease. Later, there may be floaters, blurred vision, or poor night vision. There may also be partial or complete vision loss. Early cases of diabetic retinopathy can be treated by carefully controlling blood sugar, blood pressure, and cholesterol. Surgery or laser treatments may help restore lost vision. Laser surgery can shrink abnormal blood vessels or close ones that are leaking. Medicines injected in the eye can help decrease swelling of the retina. Home care Take all medicines, including insulin or oral diabetic medicine, exactly as prescribed. Follow the diet advised by your healthcare provider. If you have high cholesterol, follow a low-fat, low-cholesterol diet. Monitor blood sugars as advised. Try to achieve your ideal weight. If you smoke, quit smoking. Tobacco use worsens the effect of diabetes on your blood vessels. If you have high blood pressure, consider buying an automatic blood pressure machine. These are available at most pharmacies. Use this to monitor your blood pressure. Report your blood pressure readings to your healthcare provider. Exercise regularly. Follow-up care Follow up with your healthcare provider, or as advised. You must have a complete eye exam at least once a year, more often if needed. Untreated diabetic retinopathy can lead to complete loss of vision. Occupational therapists can help you adapt to any vision loss you have, including learning techniques to safely administer insulin. When to seek medical advice Call your healthcare provider right away if any of these occur. Increasing blurriness or any sudden changes in your vision Sudden flashes of light inside your eye New floaters (small dots or strings that seem to be moving across your field of vision) Eye pain, redness, or discharge from your eyelid New dark spots appearing in your field of vision Halos around lights Dimness of vision Partial or complete loss of vision Women with diabetes should have a complete eye exam before becoming , or as soon as possible when they find out they are . Retinopathy sometimes worsens during . Your eye exam Your eye healthcare provider uses an eye chart and other tools to check your vision. Then he or sheexamines your eyes for signs of disease. You are given eye drops to widen (dilate) your pupils. Youmay have one or more of the following tests: Tonometry to measure fluid pressure inside the eye. Slit lamp exam to allow the healthcare provider to view the structures of your eye. Ultrasound to create an image of the eye using sound waves. Ultrasound may be used if blood is found in the clear gel that fills the eye (vitreous). Ocular coherence tomography (OCT) to create an image of the retina using light waves. This shows ifthere is fluid leaking into certain parts of the eye. It can also measure the thickness of the retina. Fluorescein angiography This test may be done to check the health of the inside lining of the eye (retina). It also checks the tiny blood vessels (capillaries) that carry blood to the retina. During the test: Photographs are taken of the retina. A dye is then injected into the bloodstream through the arm or hand. The dye travels to the capillaries in the eye. More photographs are taken of the retina. The dye causes the capillaries to stand out on the photographs. You may feel brief nausea during the procedure. For a few hours after the test, your skin, eyes, and urine may appear yellow. Talk with your healthcare provider for more information about this test. Date Last Reviewed: 08/23/201519993270-15[address] [employer]. [address] [place] [address]. All rights reserved. This information is not intended as a substitute for professional medical care. Always follow your healthcare professional's instructions. * Tadeo Montes DO - 04/22/2023 3:35 PM EST Images from the original note were not included. Assessment and Plan Type 2 diabetes mellitus without complication, without long-term current use of insulin (HCC) Doing very well with improvement in A1C But weight increased, advise switching to more effective GLP-1 for weight loss, mounjaro ordered - COMPREHENSIVE METABOLIC PANEL; Future - HEMOGLOBIN A1C; Future - ALBUMIN / CREATININE RATIO, URINE; Future - Mounjaro 15 MG/0.5ML Subcutaneous Solution Pen-injector (Tirzepatide); Inject 15 mg under the skin once a week. MARTA on CPAP HTN, goal below 140/90 - CBC WITH WBC DIFFERENTIAL; Future - ALBUMIN / CREATININE RATIO, URINE; Future Primary osteoarthritis of both knees Mixed dyslipidemia - COMPREHENSIVE METABOLIC PANEL; Future - LIPID PANEL WITH DIRECT LDL IF TG IS HIGH; Future DM type 2 nursing care encounter (HCC) - DIABETES FOOT EXAM Type 2 diabetes mellitus with diabetic mononeuropathy, without long-term current use of insulin (HCC) History of Present Illness Fabricio Sanchez is a 57 year old male that presents for Return Visit (Pt here for return visit DM. Having L knee replacement on 05/07/2023.) Presents in f/u today Overall has been doing well And has improved blood sugar significantly Knee surgery upcoming Hip is doing well s/p surgery Physical Exam Vitals: 04/22/23 1528 Temp: 35.9 C (96.7 F) Pulse: 78 Resp: 16 SpO2: 95% BP: 112/66 BMI: 38.95 Physical Exam Constitutional: Appearance: Normal appearance. HENT: Head: Normocephalic and atraumatic. Eyes: Extraocular Movements: Extraocular movements intact. Pupils: Pupils are equal, round, and reactive to light. Cardiovascular: Rate and Rhythm: Normal rate and regular rhythm. Pulmonary: Effort: Pulmonary effort is normal. Breath sounds: Normal breath sounds. Neurological: General: No focal deficit present. Mental Status: He is alert and oriented to person, place, and time. Psychiatric: Mood and Affect: Mood normal. Behavior: Behavior normal. Wrap-Up Follow Up: Return in about 1 year (around 04/22/2024). Time: Total time today was 25 minutes excluding any time spent in the performance of separately billed services. documented in this encounter Plan of Treatment Upcoming Encounters Date Type Department Care Team (Late st Contact Info) Description 04/26/2024 3:00 PM EST Office Visit Family Practice [facility] [address] [address] Tadeo Montes DO [address] [place] [address] Scheduled Orders Name Type Priority Associated Diagnoses Orde r Schedule CBC WITH WBC DIFFERENTIAL Lab Routine HTN, goal below 140/90 Expected: 04/21/2024 (Approximate), Expires: 04/22/2024 COMPREHENSIVE METABOLIC PANEL Lab Routine Type 2 diabetes mellitus without complication, without long-term current use of insulin (HCC) Mixed dyslipidemia Expected: 04/21/2024 (Approximate), Expires: 04/22/2024 HEMOGLOBIN A1C Lab Routine Type 2 diabetes mellitus without complication, without long-term current use of insulin (HCC) Expected: 04/21/2024 (Approximate), Expires: 04/22/2024 ALBUMIN / CREATININE RATIO, URINE Lab Routine Type 2 diabetes mellitus without complication, without long-term current use of insulin (HCC) HTN, goal below 140/90 Expected: 04/21/2024 (Approximate), Expires: 04/22/2024 LIPID PANEL WITH DIRECT LDL IF TG IS HIGH Lab Routine Mixed dyslipidemia Expected: 04/21/2024 (Approximate), Expires: 04/22/2024 Scheduled Procedures Name Priority Associated Diagnoses Date/Ti me COLONOSCOPY FLEXIBLE PROXIMAL DIAGNOSTIC Recall Screen for colon cancer Health Maintenance Due Date Last Done Comments Zoster Vaccines (1 of 2) 2014 Pneumococcal Vaccine: Pediatrics (0 to 5 Years) and At-Risk Patients (6 to 64 Years) (2 - PCV) 02/27/2017 02/28/2016 COVID-19 Vaccine (2 - 2022- season) 2022 12/13/2020, 12/07/2020 Influenza Vaccine (FLU shot) (#1) 2022 12/09/2019, 12/09/2018, 03/30/2018, Additional history exists COLONOSCOPY-EVERY 3 YRS AGES 18-100 03/08/2023 03/08/2020, 03/08/2020, 05/25/2015, Additional history exists Depression Screening 09/18/2023 09/17/2022 HbA1c 10/20/2023 04/21/2023, 02/21, 09/16/2022, Additional history exists Albumin/Creatinine Ratio 04/21/2024 04/21/2023, 08/23 B-12 04/21/2024 04/21/2023, 08/23, 08/07/2020, Additional history exists GFR 04/21/2024 04/21/2023, 02/21, 09/16/2022, Additional history exists Diabetic Eye Exam 04/22/2024 04/22/2023 Diabetic Foot Exam 04/22/2024 04/22/2023, 02/28/2016 Lipid Panel 04/21/2028 04/21/2023, 08/23, 02/07/2021, Additional history exists DTaP,Tdap,and Td Vaccines (3 - Td or Tdap) 12/08/2029 12/09/2019, 03/16/2010, 08/25/2002, Additional history exists Hepatitis B Completed 09/21/1993, 0203/1993, 03/24/1993 MENINGOCOCCAL (MENACTRA/MENVEO) Aged Out 01/25/1999 No longer eligible based on patient's age to complete this topic GARDASIL-HPV IMMUNIZATION SERIES Aged Out No longer eligible based on patient's age to complete this topic documented as of this encounter Medical Devices Not on filedocumented as of this encounter Procedures Procedure Name Priority Date/Time Associated Diagnosis Comments TELEMEDICINE DIABETIC EYE Routine 04/22/2023 DM type 2 nursing care encounter (HCC) documented in this encounter Results * TELEMEDICINE DIABETIC EYE (04/22/2023) 04/22/2023 Tadeo Montes DO DIGITAL PHOTOGR APHY documented in this encounter Visit Diagnoses Diagnosis Type 2 diabetes mellitus without complication, without long-term current use of insulin (HCC)- Primary MARTA on CPAP Obstructive sleep apnea (adult) (pediatric) HTN, goal below 140/90 Unspecified essential hypertension Primary osteoarthritis of both knees Primary localized osteoarthrosis, lower leg Mixed dyslipidemia Mixed hyperlipidemia DM type 2 nursing care encounter (HCC) Type II or unspecified type diabetes mellitus without mention of complication, not stated as uncontrolled Type 2 diabetes mellitus with diabetic mononeuropathy, without long-term current use of insulin (HCC) documented in this encounter Advance Directives Latest [...] the patient have Health Care Power of Phone Triage Specialist? No Code Status History Code Status Date Activated Date Inactivated Comments Full Code 03/01/2014 2:53 AM 03/08/2014 7:30 PM Question Answer Comments Discussion of Advance Direct jason occurred with: Not Discussed Does the patient have a Living Will? No Does the patient have Health Care Power of Phone Triage Specialist? No Care Teams Seafood Process Worker Relationship Specialty Start Date End Date Tadeo Montes DO [facility] [place] [address] PCP - General Family Medicine 08/07/20 documented as of this encounter
--- OUTSIDE RECORDS SUMMARY | 2023-05-07 16:11 | External Medical Summary ---
Author Name Unknown Address Unknown Organization [id number]:[facility] [place] [address] [place] [address] Laboratory Report Ordering Provider Test Date Status MAINEISAIAS 04/21/2023 07:20:19 Final Observation Date Value Abnormality Reference (Units ) Status HbA1C 04/21/2023 07:20:19 5.8 Above high normal 4. 0-5.6 (%) Final The use of HbA1c to monitor glycemic status is based on normal hemoglobin and HbA composition. This test should not be used in patients with abnormal hemoglobin that affects the half life of the red blood cell or the in vivo glycation rates. Glucose, estimated average 04/21/2023 07:20:19 120 <126 (mg/dL) Final Performing Location [facility] [place] [address] [place] [address]
--- OUTSIDE RECORDS SUMMARY | 2023-05-07 16:11 | External Medical Summary | Summary of Care ---
Author Name Unknown Organization [facility] Address [address] [facility] [place] [address] Phone [phone] Care Team Providers Care Day Light Relief Operator Name Role Phone Tadeo Montes DO Primary Care Provider Reason for Visit * Reason Onset Date Comments Health Maintenance 03/31/2023 Encounter Details Date Type Department Care Team (Late st Contact Info) Description 03/31/2023 Telephone Family Practice [facility] [address] [place] [address] Tadeo Montes DO [address] [place] [address] Health Maintenance Allergies Active Allergy Reactions Criticality Noted Date Comments Leif Inhibitors 03/03/2013 Severe cough with lisinopril and quinapril documented as of this encounter (statuses as of 03/31/2023) Medications Medication Sig Dispensed Refills Start Date End Date Status CPAP every night at bedtime. 0 Active metFORMIN HCl 500 MG Oral Tablet (Glucophage)Indicati ons:Prediabetes TAKE 1 TABLET TWICE A DAY WITH THE MORNING AND EVENING MEALS 180 Tablet 3 04/23/2022 Active Sertraline HCl 100 MG Oral Tablet (Zoloft)Indications: Stress TAKE 1 TABLET BY MOUTH DAILY 90 Tablet 3 07/17/2022 Active Cephalexin 500 MG Oral CapsuleIndications:H istory of hip replacement, unspecified laterality Take 2 capsules by mouth 1 hour prior to procedure. 2 Capsule 0 09/17/2022 Active Trulicity 3 MG/0.5ML Subcutaneous Solution Pen-injector (Dulaglutide)Indicat ions:Type 2 diabetes mellitus with diabetic mononeuropathy, without long-term current use of insulin (HCC) Inject 3 mg under the skin once a week. 9 mL 5 12/11/2022 Active Losartan Potassium-HCTZ 100-25 MG Oral Tablet (Hyzaar) TAKE 1 TABLET DAILY (GENERIC EQUIVALENT FOR HYZAAR) 90 Tablet 3 12/16/2022 Active Atorvastatin Calcium 20 MG Oral Tablet (Lipitor)Indications :Mixed dyslipidemia TAKE 1 TABLET BY MOUTH DAILY 90 Tablet 2 01/20/2023 Active Trulicity 4.5 MG/0.5ML Subcutaneous Solution Pen-injector (Dulaglutide) Inject 4.5 mg under the skin once a week. 6.5 mL 3 02/18/2023 Active documented as of this encounter (statuses as of 03/31/2023) Active Problems Problem Noted Date Diagnosed Date [...] as of this encounter (statuses as of 03/31/2023) Resolved Problems Problem Noted Date Diagnosed Date [...] as of this encounter (statuses as of 03/31/2023) Immunizations Name Administration Dates Next Due COVID-19 mRNA, LNP-s, No Pre serve, 2-Dose Series (Pfizer) 12/07/2020 Pneumococcal Polysaccharide PPV23 (Pneumovax) 02/28/2016 Seasonal [...] Smoking Tobacco: Never Smokeless Tobacco: Current Chew Comments:1 tin/pack every 2 days X 40 [...] on file documented as of this encounter Functional Status Functional Status Response [...] No 07/05/2014 documented as of this encounter Miscellaneous Notes * Telephone Encounter - Lois Guzman LPN - 03/31/2023 11:30 AM EST Care Gaps Comprehensive Care Outreach Last Office/Telemedicine Visit: 09/17/2022 (in office), 12/26/2020 (telemedicine) Next Office Visit: 04/24/2023 Hemoglobin AIC Results: Lab Results Component Value Date/Time HEMOGLOBIN A1C - [facility] 6.4 (H) 09/16/2022 07:14 AM HEMOGLOBIN A1C - [facility] 6.1 (H) 02/07/2021 03:35 PM HEMOGLOBIN A1C - [facility] 5.7 (H) 08/07/2020 04:07 PM HEMOGLOBIN A1C - [facility] 5.8 (H) 12/08/2019 07:21 AM HEMOGLOBIN A1C - [facility] 6.0 (H) 12/10/2018 07:21 AM HEMOGLOBIN A1C - [facility] 5.9 09/15/2017 03:23 PM Reviewed Health Maintenance below: Health Maintenance Topic Date Due Diabetic Eye Exam Never done Zoster Vaccines (1 of 2) Never done Diabetic Foot Exam 02/27/2017 Pneumococcal Vaccine: Pediatrics (0 to 5 Years) and At-Risk Patients (6 to 64 Years) (2 - PCV) 02/27/2017 Influenza Vaccine (FLU shot) (1) 11/22/2022 COVID-19 Vaccine (2 - 2022-24 season) 2022 COLONOSCOPY-EVERY 3 YRS AGES 18-100 03/08/2023 HbA1c 03/18/2023 Eye retinal scan Foot Colon declined Lab already ordered Care Gap Outreach Action Taken: Spoke to patient documented in this encounter Plan of Treatment Upcoming Encounters Date Type Department Care Team (Late st Contact Info) Description 04/24/2023 3:40 PM EST Office Visit [facility] [address] [place] [address] Tadeo Montes, [address] [place] [id number] Scheduled Procedures Name Priority Associated Diagnoses Date/Ti [...] Not on filedocumented as of this encounter Advance Directives Latest Code Status on File Code Status Date Activated Date Inactivated Comments Full Code 07/05/2014 6:20 AM 07/07/2014 2:22 PM This order reflects the patients wishes and were consensually agreed upon. Question Answer Comments Discussion of Advance Directives occurred with: Not Discussed Does the patient have a Living Will? No Does the patient have Health Care Power of Sports Teacher? No Code Status History Code Status Date Activated Date Inactivated Comments Full Code 03/01/2014 2:53 AM 03/08/2014 7:30 PM Question Answer Comments Discussion of Advance Direct jason occurred with: Not Discussed Does the patient have a Living Will? No Does the patient have Health Care Power of Sports Teacher? No Care Teams Day Light Relief Operator Relationship Specialty Start Date End Date Tadeo Montes DO [address] [place] [address] PCP - General Family Medicine 08/07/20 documented as of this encounter
--- OUTSIDE RECORDS SUMMARY | 2023-05-07 16:11 | External Medical Summary | Summary of Care ---
Author Name Unknown Organization [facility] Address [address] [place] [address] Phone [phone] Care Team Providers Care Personal Injury Law Specialist Name Role Phone Tadeo Montes DO Primary Care Provider Reason for Visit * Reason Onset Date Comments Test Results 03/27/2023 Encounter Details Date Type Department Care Team (Late st Contact Info) Description 03/27/2023 Telephone Family Practice [facility] [address] [place] [address] Martha Stinson LPN Test Results Allergies Active Allergy Reactions Criticality Noted Date Comments Leif Inhibitors 03/03/2013 Severe cough with lisinopril and quinapril documented as of this encounter (statuses as of 03/28/2023) Medications Medication Sig Dispensed Refills Start Date [...] as of this encounter (statuses as of 03/28/2023) Active Problems Problem Noted Date Diagnosed Date [...] as of this encounter (statuses as of 03/28/2023) Resolved Problems Problem Noted Date Diagnosed Date [...] as of this encounter (statuses as of 03/28/2023) Immunizations Name Administration Dates Next Due COVID-19 [...] encounter Miscellaneous Notes * Telephone Encounter - Tadeo Montes DO - 03/27/2023 4:09 PM EST Advise labs prior to his apr appt Already ordered We will see what potassium looks like at that point * Telephone Encounter - Martha Stinson LPN - 03/27/2023 3:55 PM EST FYI--Received fax from [facility] as pt had Pre-Op labs done on 03/10/2023. Pt scheduled to have Knee surgery by Dr. Caputo on 04/01/2023. [place] [facility] [place] [facility] results [place] slightly low at 3.2. [place] [facility] have Dr. Montes address and optimize if needed. Copy of labs placed on Dr. Montes's desk for review. Please placed in scanning when done. documented in this encounter Plan of Treatment Upcoming Encounters Date Type Department Care Team (Late st Contact Info) Description 04/24/2023 3:40 PM EST Office [facility] [address] [facility] [place] [address] Tadeo Montes DO [address] [place] [address] Scheduled Procedures Name Priority Associated Diagnoses Date/Ti me COLONOSCOPY FLEXIBLE PROXIMAL DIAGNOSTIC Recall Screen for colon cancer Health Maintenance Due Date Last Done Comments Diabetic Eye Exam 1982 Zoster Vaccines (1 of 2) 2014 Diabetic Foot Exam 02/27/2017 02/28/2016 Pneumococcal Vaccine: Pediatrics (0 to 5 Years) and At-Risk Patients (6 to 64 Years) (2 - PCV) 02/27/2017 02/28/2016 COVID-19 Vaccine (2 - season) 2022 12/13/2020, 12/07/2020 Influenza Vaccine (FLU [...] the patient have Health Care Power of Lockstitch Topstitcher? No Code Status History Code Status Date Activated Date Inactivated Comments Full Code 03/01/2014 2:53 AM 03/08/2014 7:30 PM Question Answer Comments Discussion of Advance Direct jason occurred with: Not Discussed Does the patient have a Living Will? No Does the patient have Health Care Power of Lockstitch Topstitcher? No Care Teams Personal Injury Law Specialist Relationship Specialty Start Date End Date Tadeo Montes DO [address] [place] [address] PCP - General Family Medicine 08/07/20 documented as of this encounter
--- OUTSIDE RECORDS SUMMARY | 2023-05-07 16:11 | External Medical Summary | Summary of Care ---
Author Name Unknown Organization [facility] Address [address] [place] [address] Phone [phone] Care Team Providers Care Flat Sheet Maker Name Role Phone Tadeo Montes Primary Care Provider Reason for Visit * Reason Comments Outpatient Testing Encounter Details Date Type Department Care Team (Late st Contact Info) Description 04/21/2023 7:30 AM EST [facility] [address] [facility] [address] [facility] [address] Dyslipidemia, goal LDL below 100; Type 2 diabetes mellitus with diabetic mononeuropathy, without long-term current use of insulin ([facility]); B12 deficiency Allergies Active Allergy Reactions Criticality Noted Date Comments Leif Inhibitors 03/03/2013 Severe cough with lisinopril and quinapril documented as of this encounter (statuses as of 04/21/2023) Medications Medication Sig Dispensed Refills Start Date [...] a week. 6.5 mL 3 02/18/2023 Active metFORMIN HCl 500 MG Oral Tablet (Glucophage)Indicati ons:Prediabetes TAKE 1 TABLET TWICE A DAY WITH THE MORNING AND EVENING MEALS 180 Tablet 3 04/18/2023 Active documented as of this encounter (statuses as of 04/21/2023) Active Problems Problem Noted Date Diagnosed Date [...] as of this encounter (statuses as of 04/21/2023) Resolved Problems Problem Noted Date Diagnosed Date [...] as of this encounter (statuses as of 04/21/2023) Immunizations Name Administration Dates Next Due COVID-19 [...] No 07/05/2014 documented as of this encounter Plan of Treatment Upcoming Encounters Date Type Department Care Team (Late st Contact Info) Description 04/22/2023 3:40 PM EST Office Visit Family Practice [facility] [address] [place] [phone] Tadeo Montes, [address] [place] [address] Pending Results Name Type Priority Associated Diagnoses Date /Time COMPREHENSIVE METABOLIC PANEL Lab Routine Dyslipidemia, goal LDL below 100 04/21/2023 7:20 AM EST HEMOGLOBIN A1C Lab Routine Type 2 diabetes mellitus with diabetic mononeuropathy, without long-term current use of insulin (HCC) 04/21/2023 7:20 AM EST LIPID PANEL WITH DIRECT LDL IF TG IS HIGH Lab Routine Dyslipidemia, goal LDL below 100 04/21/2023 7:20 AM EST VITAMIN B12 Lab Routine B12 deficiency 04/21/2023 7:20 AM EST ALBUMIN / CREATININE RATIO, URINE Lab Routine Type 2 diabetes mellitus with diabetic mononeuropathy, without long-term current use of insulin (HCC) 04/21/2023 7:40 AM EST Scheduled Procedures Name Priority Associated Diagnoses Date/Ti [...] 03/08/2020, 03/08/2020, 05/25/2015, Additional history exists HbA1c 09/09/2023 03/10/2023, 08/23, 02/07/2021, Additional history exists Albumin/Creatinine Ratio 09/17/2023 09/16/2022 B-12 09/17/2023 09/16/2022, 07/22, 12/10/2018, Additional history exists Depression Screening 09/18/2023 09/17/2022 GFR 03/10/2024 03/10/2023, 08/23, 09/13/2021, Additional history exists Lipid Panel 09/17/2027 09/16/2022, 01/22, 08/07/2020, Additional [...] as of this encounter Visit Diagnoses Diagnosis Dyslipidemia, goal LDL below 100 Other and unspecified hyperlipidemia Type 2 diabetes mellitus with diabetic mononeuropathy, without long-term current use of insulin (HCC) B12 deficiency Other B-complex deficiencies documented in this encounter Advance Directives Latest [...] the patient have Health Care Power of Fish Rod Maker? No Code Status History Code Status Date Activated Date Inactivated Comments Full Code 03/01/2014 2:53 AM 03/08/2014 7:30 PM Question Answer Comments Discussion of Advance Direct jason occurred with: Not Discussed Does the patient have a Living Will? No Does the patient have Health Care Power of Fish Rod Maker? No Care Teams Flat Sheet Maker Relationship Specialty Start Date End Date Tadeo Montes DO [address] [place] [address] PCP - General Family Medicine 08/07/20 documented as of this encounter
--- OUTSIDE RECORDS SUMMARY | 2023-05-07 16:11 | External Medical Summary | Summary of Care ---
Author Name Unknown Organization [facility] Address [address] [facility] [place] [address] Phone [phone] Care Team Providers Care Host/Hostess Restaurant Name Role Phone Tadeo Montes DO Primary Care Provider Reason for Visit * Reason Comments Return Visit Pt here for 6 mo ret urn. Requests injection to L shoulder. PT to discuss labs and has L knee replacement on 04/01/[address] Caputo.Also need abx prophylaxis for dental procedure from hip replacement last year. Encounter Details Date Type Department Care Team (Latest Contact Info) Description 09/17/2022 3:20 PM EDT Office Visit Family Practice [facility] [address] [place] [address] Tadeo Montes DO [address] [place] [address] Type 2 diabetes mellitus with diabetic mononeuropathy, without long-term current use of insulin (HCC)*; MARTA on CPAP; HTN, goal below 140/90; Primary osteoarthritis of both knees; Chronic left shoulder pain; B12 deficiency; Dyslipidemia, goal LDL below 100; History of hip replacement, unspecified laterality Allergies Active Allergy Reactions Criticality Noted Date Comments Leif Inhibitors 03/03/2013 Severe cough with lisinopril and quinapril documented as of this encounter (statuses as of 03/20/2023) Medications Medication Sig Dispensed Refills Start Date End Date Status CPAP every night at bedtime. 0 Active metFORMIN HCl 500 MG Oral Tablet (Glucophage)Indic ations:Prediabete s TAKE 1 TABLET TWICE A DAY WITH THE MORNING AND EVENING MEALS 180 Tablet 3 04/23/2022 Active Sertraline HCl 100 MG Oral Tablet (Zoloft)Indicatio ns:Stress TAKE 1 TABLET BY MOUTH DAILY 90 Tablet 3 07/17/2022 Active Cephalexin 500 MG Oral CapsuleIndication s:History of hip replacement, unspecified laterality Take 2 capsules by mouth 1 hour prior to procedure. 2 Capsule 0 09/17/2022 Active Trulicity 0.75 MG/0.5ML Subcutaneous Solution Pen-injector (Dulaglutide)Nahomi cations:Prediabet es Inject 0.75 mg under the skin once a week. 6 mL 3 02/26/2022 3 Discontinued Losartan Potassium-HCTZ 100-25 MG Oral Tablet (Hyzaar) TAKE 1 TABLET DAILY (GENERIC EQUIVALENT FOR HYZAAR) 90 Tablet 1 06/17/2022 3 Discontinued Atorvastatin Calcium 20 MG Oral Tablet (Lipitor)Indicati ons:Mixed dyslipidemia TAKE 1 TABLET BY MOUTH DAILY 90 Tablet 1 07/22/2022 3 Discontinued Trulicity 1.5 MG/0.5ML Subcutaneous Solution Pen-injector (Dulaglutide)Nahomi cations:Type 2 diabetes mellitus with diabetic mononeuropathy, without long-term current use of insulin (HCC) Inject 1.5 mg under the skin once a week. 3 mL 5 09/17/2022 3 Discontinued Hospital, Clinic, or Other Facility Administered Medication Ordered Dose Route Frequency Start Date End Date Status lidocaine 1 % inj 40 mgIndications:Chronic left shoulder pain 40 mg IX ONCE 09/17/2022 09/17/2022 Ended Triamcinolone Acetonide (Kenalog) 40 MG/ML inj 40 mgIndications:Chronic left shoulder pain 40 mg IX ONCE 09/17/2022 09/17/2022 Ended documented as of this encounter (statuses [...] No Pre serve, 2-Dose Series (Pfizer) 12/07/2020 Diptheria/Tetanus (Adult) 03/24/1993 Hepatitis B Vaccine [...] Sign Reading Time Taken Comments Blood Pressure 120/78 09/17/2022 3:11 PM EDT Pulse 88 09/17/2022 3:11 PM EDT Temperature 36.4 C (97.5 F) 09/17/2022 3:11 PM ED T Respiratory Rate 16 09/17/2022 3:11 PM EDT Oxygen Saturation 96% 09/17/2022 3:11 PM EDT Inhaled Oxygen Concentration - - Weight - [...] of this encounter Progress Notes * Tadeo Montes SherrickDO - 09/17/2022 3:18 PM EDT Images from the original note were not included. Assessment and Plan Type 2 diabetes mellitus with diabetic mononeuropathy, without long-term current use of insulin (HCC) Increase trulicity to 1.5mg and metformin to BID dosing - Trulicity 1.5 MG/0.5ML Subcutaneous Solution Pen-injector (Dulaglutide); Inject 1.5 mg under the skin once a week. - HEMOGLOBIN A1C; Future - ALBUMIN / CREATININE RATIO, URINE; Future MARTA on CPAP HTN, goal below 140/90 Primary osteoarthritis of both knees Chronic left shoulder pain Joint Injection Procedure Time Out Procedure: Correct patient identity (Ask Name/Date of ) - Yes Correct Procedure and Consent - Yes Verified Side and Site - Yes Correct patient position - Yes All necessary Equipment/Prior Studies Present - Yes Reviewed special requirements of this patient (i.e. Allergies) - Yes After reviewing the risks with the patient (including bleeding, infection and skin atrophy) - understerile conditions and preparing the site with isospropyl alcohol, the L shoulder was injected [id number] of kenalog and 4mg of lidocaine. The patient tolerated the procedure well without complications and was instructed on subsequent follow-up care (local care and any necessary restrictions). Risks, benefits, and alternatives to the procedures were discussed with the patient and all questions were answered. Patient specific risk factors were reviewed and considered. Tadeo Montes DO B12 deficiency - VITAMIN B12; Future Dyslipidemia, goal LDL below 100 - COMPREHENSIVE METABOLIC PANEL; Future - LIPID PANEL WITH DIRECT LDL IF TG IS HIGH; Future History of hip replacement, unspecified laterality - Cephalexin 500 MG Oral Capsule; Take 2 capsules by mouth 1 hour prior to procedure. History of Present Illness Fabricio Sanchez is a 57 year old male that presents for Return Visit (Pt here for 6 mo return. Requests injection to L shoulder. PT to discuss labs and has L knee replacement on 04/01/[address] Caputo.//Also need abx prophylaxis for dental procedure from hip replacement last year.) Presents in f/u today Ongoing pain in the shoulder, L Knee pain bilaterally, going to have replacement Compliant with meds but still has a lot of carbs/sugar in diet Physical Exam Vitals: 09/17/22 1511 Temp: 36.4 C (97.5 F) Pulse: 88 Resp: 16 SpO2: 96% BP: 120/78 Physical Exam Constitutional: Appearance: Normal appearance. HENT: Head: Normocephalic and atraumatic. Eyes: Extraocular Movements: Extraocular movements intact. Pupils: Pupils are equal, round, and reactive to light. Cardiovascular: Rate and Rhythm: Normal rate and regular rhythm. Pulmonary: Effort: Pulmonary effort is normal. Breath sounds: Normal breath sounds. Musculoskeletal: General: Tenderness present. Neurological: General: No focal deficit present. Mental Status: He is alert and oriented to person, place, and time. Psychiatric: Mood and Affect: Mood normal. Behavior: Behavior normal. Wrap-Up Follow Up: Return in about 6 months (around 03/19/2023). Time: Total time today Was 40 minutes excluding any time spent in the performance of separately billed services. documented in this encounter Plan of Treatment Upcoming Encounters Date Type Department Care Team (Late st Contact Info) Description 04/24/2023 3:40 PM EST Office Visit Family Practice [facility] [address] [address] Tadeo Montes DO [address] [address] Scheduled Orders Name Type Priority Associated Diagnoses Orde r Schedule COMPREHENSIVE METABOLIC PANEL Lab Routine Dyslipidemia, goal LDL below 100 Expected: 03/16/2023 (Approximate), Expires: 09/18/2023 HEMOGLOBIN A1C Lab Routine Type 2 diabetes mellitus with diabetic mononeuropathy, without long-term current use of insulin (HCC) Expected: 03/16/2023 (Approximate), Expires: 09/18/2023 ALBUMIN / CREATININE RATIO, URINE Lab Routine Type 2 diabetes mellitus with diabetic mononeuropathy, without long-term current use of insulin (HCC) Expected: 03/16/2023 (Approximate), Expires: 09/18/2023 LIPID PANEL WITH DIRECT LDL IF TG IS HIGH Lab Routine Dyslipidemia, goal LDL below 100 Expected: 03/16/2023 (Approximate), Expires: 09/18/2023 VITAMIN B12 Lab Routine B12 deficiency Expected: 03/16/2023 (Approximate), Expires: 09/17/2023 Scheduled Procedures Name Priority Associated Diagnoses Date/Ti [...] as of this encounter Visit Diagnoses Diagnosis Type 2 diabetes mellitus with diabetic mononeuropathy, without long-term current use of insulin (HCC)- Primary MARTA on CPAP Obstructive sleep apnea (adult) (pediatric) HTN, goal below 140/90 Unspecified essential hypertension Primary osteoarthritis of both knees Primary localized osteoarthrosis, lower leg Chronic left shoulder pain Pain in joint, shoulder region B12 deficiency Other B-complex deficiencies Dyslipidemia, goal LDL below 100 Other and unspecified hyperlipidemia History of hip replacement, unspecified laterality documented in this encounter Administered Medications Inactive Administered Medications - up to 3 most recent administrations Medication Order MAR Action Action Date Dose Rate Site lidocaine 1 % inj 40 mg 40 mg (4 mL), Intra-Articular, ONCE, On Fri09/17/22 at 1615, For 1 dose Given 09/17/2022 4:17 PM EDT 40 mg Other -Specify Triamcinolone Acetonide (Kenalog) 40 MG/ML inj 40 mg 40 mg, Intra-Articular, ONCE, On Fri09/17/22 at 1615, For 1 dose Given 09/17/2022 4:18 PM EDT 40 mg O ther-Specify documented in this [...] the patient have Health Care Power of Photo Equipment Technician? No Code Status History Code Status Date Activated Date Inactivated Comments Full Code 03/01/2014 2:53 AM 03/08/2014 7:30 PM Question Answer Comments Discussion of Advance Direct jason occurred with: Not Discussed Does the patient have a Living Will? No Does the patient have Health Care Power of Photo Equipment Technician? No Care Teams Host/Hostess Restaurant Relationship Specialty Start Date End Date Tadeo Montes DO [address] [place] [address] PCP - General Family Medicine 08/07/20 documented as of this encounter
--- OUTSIDE RECORDS SUMMARY | 2023-05-07 16:11 | External Medical Summary ---
Author Name Unknown Address Unknown Organization [id number]:LAB[facility]ATORY [facility] - [address] [facility] [place] [place] [address] Laboratory Report Ordering Provider Test Date Status ISAIAS GROVE 04/21/2023 07:20:19 Final Observation Date Value Abnormality Reference (Units ) Status Triglyceride 04/21/2023 07:20:19 133 <=174 ( mg/dL) Final Triglyceride Reference Range s (mg/dL):
<150 Acceptable
150-174 Borderline high
175-499 High
>=500 Very high Cholesterol 04/21/2023 07:20:19 151 <200 (mg /dL) Final Total Cholesterol Reference Ranges (mg/dL):
<200 Desirable
200-239 Borderline high
>=240 High HDL 04/21/2023 07:20:19 33 Below low normal >39 (mg/dL) Final HDL Cholesterol Reference Ra nges (mg/dL):
>=60 High (Desirable)
<50 Low (Undesirable) For Females
<40 Low (Undesirable) For Males NON-HDL CHOLESTEROL 04/21/2023 07:20:19 118 <=159 (mg/dL) Final Non-HDL Cholesterol Referenc e Range (mg/dL):
<100 Target level for high risk ASCVD patient
<130 Optimal for general population
130-159 Near optimal for general population
160-189 Borderline High
190-219 High
>=220 Very High LDL, (calculated) 04/21/2023 07:20:19 91 <= 129 (mg/dL) Final LDL Cholesterol Reference Ra nges (mg/dL):
<70 Target level for high risk ASCVD patient
<100 Optimal for general population
100-129 Near optimal for general population
130-159 Borderline high
160-189 High
>=190 Very high Performing Location LABORATORY [facility] - [address] [place] [address]
--- OUTSIDE RECORDS SUMMARY | 2023-05-07 16:11 | External Medical Summary | Summary of Care ---
Author Name Unknown Organization [facility] Address [address] [place] [address] Phone [phone] Care Team Providers Care Epic Stork Specialists Name Role Phone Tadeo Montes DO Primary Care Provider Reason for Visit * Reason Onset Date Comments Advice 03/31/2023 Encounter Details Date Type Department Care Team (Late st Contact Info) Description 03/31/2023 Telephone Family Practice [facility] [address] [place] [address] Tadeo Montes DO [address] [place] [address] Advice Allergies Active Allergy Reactions Criticality Noted Date Comments Leif Inhibitors 03/03/2013 Severe cough with lisinopril and quinapril documented as of this encounter (statuses as of 04/03/2023) Medications Medication Sig Dispensed Refills Start Date [...] as of this encounter (statuses as of 04/03/2023) Active Problems Problem Noted Date Diagnosed Date [...] as of this encounter (statuses as of 04/03/2023) Resolved Problems Problem Noted Date Diagnosed Date [...] as of this encounter (statuses as of 04/03/2023) Immunizations Name Administration Dates Next Due COVID-19 [...] encounter Miscellaneous Notes * Telephone Encounter - Deanne Dozier RN - 04/02/2023 9:41 AM EST Please assist with setting up NV for ht/weight check * Telephone Encounter - Tadeo Montes DO - 04/01/2023 10:49 AM EST Sure thing * Telephone Encounter - Lesa Levin LPN - 04/01/2023 10:28 AM EST If you are ok with this, we can set up scheduled weekly NV for wt check. * Telephone Encounter - Lois Guzman LPN - 03/31/2023 11:37 AM EST Patient was to have a total knee done tomorrow. His insurance denied it because of his BMI being too high. He needs to show documentation of weight loss. Asking if he could come in weekly for a weight check. Starting end of this week or beginning of next? documented in this encounter Plan of Treatment Upcoming Encounters Date Type Department Care Team (Late st Contact Info) Description 04/24/2023 3:40 PM EST Office Visit Family [facility] [address] [place] [phone] Tadeo Montes DO [address] [address] Scheduled Procedures Name Priority Associated Diagnoses Date/Ti [...] the patient have Health Care Power of Racing Secretary? No Code Status History Code Status Date Activated Date Inactivated Comments Full Code 03/01/2014 2:53 AM 03/08/2014 7:30 PM Question Answer Comments Discussion of Advance Direct jason occurred with: Not Discussed Does the patient have a Living Will? No Does the patient have Health Care Power of Racing Secretary? No Care Teams Epic [employer] Relationship Specialty Start Date End Date Tadeo Montes DO [address] [place] [address] PCP - General Family Medicine 08/07/20 documented as of this encounter
--- OUTSIDE RECORDS SUMMARY | 2023-05-07 16:11 | External Medical Summary | Summary of Care ---
Author Name Unknown Organization [facility] Address [address] [facility] [address] Phone [phone] Care Team Providers Care Chemistry Lab Instructor Name Role Phone [place] Montes DO Primary Care Provider Reason for Visit * Reason Comments eRx-Medication Refill Encounter Details Date Type Department Care Team (Late st Contact Info) Description 04/18/2023 Refill Family Practice [facility] [address] [place] [address] Maine Montes DO [address] [place] [address] Prediabetes Allergies Active Allergy Reactions Criticality Noted Date Comments Leif Inhibitors 03/03/2013 Severe cough with lisinopril and quinapril documented as of this encounter (statuses as of 04/18/2023) Medications Medication Sig Dispensed Refills Start Date [...] Active Trulicity 3 MG/0.5ML Subcutaneous Solution Pen-injector (Dulaglutide)Nahomi cations:Type 2 diabetes mellitus with diabetic mononeuropathy, without long-term current use of insulin (HCC) Inject 3 mg under the skin once a week. 9 mL 5 12/11/2022 Active Losartan Potassium-HCTZ 100-25 MG Oral Tablet (Hyzaar) TAKE 1 TABLET DAILY (GENERIC EQUIVALENT FOR HYZAAR) 90 Tablet 3 12/16/2022 Active Atorvastatin Calcium 20 MG Oral Tablet (Lipitor)Indicati [...] EVENING MEALS 180 Tablet 3 04/18/2023 Active metFORMIN HCl 500 MG Oral Tablet (Glucophage)Indic ations:Prediabete s TAKE 1 TABLET TWICE A DAY WITH THE MORNING AND EVENING MEALS 180 Tablet 3 04/23/2022 4 Discontinued documented as of this encounter (statuses as of 04/18/2023) Active Problems Problem Noted Date Diagnosed Date [...] as of this encounter (statuses as of 04/18/2023) Resolved Problems Problem Noted Date Diagnosed Date [...] as of this encounter (statuses as of 04/18/2023) Immunizations Name Administration Dates Next Due COVID-19 [...] encounter Miscellaneous Notes * Telephone Encounter - Muaricio Garcia [facility] - 04/18/2023 12:27 PM ESTSigned Prescriptions: Disp Refills metFORMIN HCl 500 MG Oral Tablet (Glucopha*180 Ta*3 Sig: TAKE 1 TABLET TWICE A DAY WITH THE MORNING AND EVENING MEALSAuthorizing Provider: MAINE MONTESOrderglenny User: MAURICIO GARCIA documented in this encounter Plan of Treatment Upcoming Encounters Date Type Department Care Team (Late st Contact Info) Description 04/24/2023 3:40 PM EST Office Visit Family Practice [facility] [address] [address] Maine Montes, [address] [address] Scheduled Procedures Name Priority Associated Diagnoses Date/Ti [...] as of this encounter Visit Diagnoses Diagnosis Prediabetes Other abnormal glucose documented in this encounter Advance Directives Latest [...] the patient have Health Care Power of Weight Inspector? No Code Status History Code Status Date Activated Date Inactivated Comments Full Code 03/01/2014 2:53 AM 03/08/2014 7:30 PM Question Answer Comments Discussion of Advance Direct jason occurred with: Not Discussed Does the patient have a Living Will? No Does the patient have Health Care Power of Weight Inspector? No Care Teams Chemistry Lab Instructor Relationship Specialty Start Date End Date Maine Montes DO [address] [place] [address] PCP - General Family Medicine 08/07/20 documented as of this encounter
--- OUTSIDE RECORDS SUMMARY | 2023-05-07 16:11 | External Medical Summary | Summary of Care ---
Author Name Unknown Organization [facility] Address [address] [facility] [address] Phone [phone] Care Team Providers Care Dyslexia Teacher Name Role Phone Tadeo Montes DO Primary Care Provider Encounter Details Date Type Department Care Team (Late st Contact Info) Description 04/14/2023 Orders Only Family Practice [facility] [address] [place] [address] Tadeo Montes DO [address] [place] [address] Allergies Active Allergy Reactions Criticality Noted Date Comments Leif Inhibitors 03/03/2013 Severe cough with lisinopril and quinapril documented as of this encounter (statuses as of 04/14/2023) Medications Medication Sig Dispensed Refills Start Date [...] as of this encounter (statuses as of 04/14/2023) Active Problems Problem Noted Date Diagnosed Date [...] as of this encounter (statuses as of 04/14/2023) Resolved Problems Problem Noted Date Diagnosed Date [...] as of this encounter (statuses as of 04/14/2023) Immunizations Name Administration Dates Next Due COVID-19 [...] 3:40 PM EST Office Visit Family Practice [facility] [address] [place] [address] Tadeo Montes, [address] [place] [address] Scheduled Procedures Name Priority Associated Diagnoses Date/Ti [...] 03/08/2020, 05/25/2015, Additional history exists HbA1c 03/18/2023 03/10/2023, 08/23, 02/07/2021, Additional history exists Albumin/Creatinine Ratio 09/17/2023 09/16/2022 B-12 09/17/2023 09/16/2022, 07/22, 12/10/2018, Additional history exists GFR 09/17/2023 03/10/2023, 08/23, 09/13/2021, Additional history exists Depression Screening 09/18/2023 09/17/2022 [...] Procedure Name Priority Date/Time Associated Diagnosis Comments CHEMISTRY-OUTSIDE Routine 03/10/2023 documented in this encounter Results * (ABNORMAL) CHEMISTRY-OUTSIDE (03/10/2023) Not all results display below - see scan for full detail OUTSIDE LAB (SEE SCANNED REPORT) Comment:SEE SCAN - CBC,ESR,P T/INR,CHEM,A1C,CALCIUM,CRP CREATININE-OUTSID E LAB 0.97 0.6 - 1.4 MG/DL OUTSIDE LAB (SEE SCANNED REPORT) EGFR-OUTSIDE LAB 85.7 ML/MIN OUT SIDE LAB (SEE SCANNED REPORT) POTASSIUM-OUTSIDE LAB 3.2(A) 3.5 - 5.1 MMOL/L OUTSIDE LAB (SEE SCANNED REPORT) GLUCOSE-OUTSIDE LAB 127(A) 70 - 99 MG/DL OUTSIDE LAB (SEE SCANNED REPORT) HOURS FASTING OUTSID E LAB (SEE SCANNED REPORT) TRIGLYCERIDES-OUT SIDE LAB OUTSIDE LAB (SEE SCANNED REPORT) CHOLESTEROL-OUTSI DE LAB OUTSIDE LAB (SEE SCANNED REPORT) HDL-OUTSIDE LAB OUTS [facility]PH LAB (SEE SCANNED REPORT) CHOL/HDL RATIO-OUTSIDE LAB OUTSIDE LA B (SEE SCANNED REPORT) LDL (CALCULATED)-OUTS [facility] LAB OUTSIDE LAB (SEE SCANNED REPORT) LDL (DIRECT MEASURE)-OUTSIDE LAB OUTSIDE LAB (SEE SCANNED REPORT) HEMOGLOBIN, [id number] LAB 6.0(A) 4.5 - 5.6 % OUTSIDE LAB (SEE SCANNED REPORT) PHOSPHORUS-OUTSID E LAB OUTSIDE LAB (SEE SCANNED REPORT) PTH-OUTSIDE LAB OUTS [facility] (SEE SCANNED REPORT) MICROALBUMIN RATIO-OUTSIDE LAB OUTSIDE LA B (SEE SCANNED REPORT) PROTEIN, UA-OUTSIDE LAB OUTSIDE LAB (SEE SCANNED REPORT) HEMOGLOBIN-OUTSID E LAB 15.2 14.0 - 18.0 G/DL OUTSIDE LAB (SEE SCANNED REPORT) 03/10/2023 History Per Patient LABORATORY OUTSIDE LAB (SEE SCANNED REPORT) documented in this encounter Advance Directives Latest [...] the patient have Health Care Power of Mig Welder? No Code Status History Code Status Date Activated Date Inactivated Comments Full Code 03/01/2014 2:53 AM 03/08/2014 7:30 PM Question Answer Comments Discussion of Advance Direct jason occurred with: Not Discussed Does the patient have a Living Will? No Does the patient have Health Care Power of Mig Welder? No Care Teams Dyslexia Teacher Relationship Specialty Start Date End Date Tadeo Montes DO [address] [place] [address] PCP - General Family Medicine 08/07/20 documented as of this encounter
--- OUTSIDE RECORDS SUMMARY | 2023-05-07 16:11 | External Medical Summary ---
Author Name Unknown Address Unknown Organization K01:LABORATORY [facility] [place] - [address] [place] [address] Laboratory Report Ordering Provider Test Date Status ISAIAS GROVE 04/21/2023 07:20:19 Final Observation Date Value Abnormality Reference (Units ) Status Vitamin B12 04/21/2023 07:20:19 553 [id number] (pg/mL) Final Performing Location LABORATORY [facility] - [address] [place] [address]
[2023-05-07] MEDS ORDERED: HYDROmorphone INJ 0.5 MG/0.5 ML SYR IV PRN (16:14)
[2023-05-07] MEDS ORDERED: bisacodyL 10 MG SUPP PR PRN (16:14)
[2023-05-07] MEDS ORDERED: PHARMACY GLYCEMIC MGMT CONSULT PRN (16:14)
[2023-05-07] MEDS ORDERED: METOCLOPRAMIDE HCL INJ 5 MG/ML 2 ML VIAL IV PRN (16:14)
[2023-05-07] MEDS ORDERED: MAGNESIUM HYDROXIDE SUSP 30 ML UDC PO PRN (16:14)
[2023-05-07] MEDS ORDERED: CARBOHYDRATES FOR HYPOGLYCEMIA PO PRN (16:14)
[2023-05-07] MEDS ORDERED: DEXTROSE 50% 50 ML SYRINGE IV PRN (16:14)
[2023-05-07] MEDS ORDERED: GLUCOSE 10 TAB/TUBE PO PRN (16:14)
[2023-05-07] MEDS ORDERED: GLUCOSE 40% GEL 15 GM TUBE PO PRN (16:14)
[2023-05-07] MEDS ORDERED: NALOXONE HCL 0.4 MG/1 ML VIAL/CARP IV PRN (16:14)
[2023-05-07] MEDS ORDERED: GLUCAGON FOR INJ 1 MG VIAL SQ PRN (16:14)
[2023-05-07] MEDS ORDERED: diphenhydrAMINE Capsule 25 MG CAP PO PRN (16:14)
[2023-05-07] MEDS ORDERED: ALUMINUM/MAGNESIUM SUSP 30 ML UDC PO PRN (16:14)
[2023-05-07] MEDS: Scopolamine CHECK PATCH PLACEMENT SCH (16:43)
[2023-05-07] MEDS: SODIUM CHLORIDE 0.9% 1,000 ML IV SCH (16:45)
[2023-05-07] MEDS: KETOROLAC 30 MG/ML VIAL IV SCH (16:46)
[2023-05-07] MEDS: INSULIN ASPART PER UNIT CHARGE SC SCH (16:48)
[2023-05-07] MEDS: ASCORBIC ACID 500 MG TAB PO SCH (17:43)
[2023-05-07] MEDS ORDERED: SENNA 8.6 MG TAB PO SCH (21:00)
[2023-05-07] MEDS: TRANEXAMIC ACID / 0.7% NACL 1,000 MG/100 ML BAG IV SCH (21:04)
[2023-05-07] MEDS: SENNA 8.6 MG TAB PO SCH (21:10)
[2023-05-07] MEDS: DOCUSATE SODIUM 100 MG CAP PO SCH (21:11)
[2023-05-08] MEDS: oxyCODONE HCL IR 5 MG TAB (IMMEDIATE RELEASE) PO PRN (03:08)
--- NOTE | 2023-05-08 07:14 | Surgery Progress Note ---
Date of Service May 08, 2023 Assessment & Plan (1) Status post left knee replacement: Plan: 57-year-old gentleman postop day 1 from a left knee replacement doing pretty well. Pain is controlled. Neurologically intact. Plan: 1. DVT prophylaxis including thigh-high teds, SCDs, Xarelto for 1 month. 2. PT/OT. Weight-bear as tolerated. Left total knee protocol. 3. Pain control doing well with current pain regimen. 4. Disposition plan: Discharged to home with home health if does okay in therapy today Admission and Anticipated Discharge Date Admission Date: May 07, 2023 Subjective 57-year-old gentleman postop day 1 from a left knee replacement. He is doing pretty well. Had a good night. He had good sleep. No chest pain or shortness of breath. Pains been controlled. Physical Exam Physical Exam: Physical pleasant middle-age male. I did wake him this morning. Examination of left leg reveals the leg to be well aligned. Dressings clean dry and intact he can dorsiflex and plantarflex his foot appropriately. He is neurologically intact. Respiratory: normal respiratory effort, lungs clear to auscultation Cardiovascular: RRR, no murmur, no edema Gastrointestinal (Abdomen): normal bowel sounds, soft, nontender, no hepatosplenomegaly Results & Data Vital Signs (Past 12 Hours) Vital Signs Temp Pulse Resp BP Pulse Ox O2 Del Method 05/08/23 02:34 36.4 C L 65 18 106/71 95 Room Air 05/07/23 22:56 36.6 C 60 16 104/72 96 Room Air, CPAP Laboratory Results Lab results are pending PG Care Time/CCT Total # of Minutes Spent Total Time Spent with Patient: Total time spent is greater than 50% in coordination of care (as documented) at patient's floor/unit and/or counseling patient: Coding Level of Care Code 92271 Post Operative Follow-Up Diagnoses Status post left knee replacement Z96.652
[2023-05-08 07:24] LABS: Hematocrit (blood only) 34.7 % (42.0-52.0); Hemoglobin 11.9 g/dl (14.0-18.0); Mean Corpuscular Hemoglobin 31.4 pg (25.0-34.0); Mean Corpuscular Hgb Conc 34.3 g/dL (32.0-36.0); Mean Corpuscular Volume 91.6 fL (80.0-100.0); Mean Platelet Volume 11.1 fL (9.4-12.4); Platelet Count 187 K/uL (130-400); RDW Coefficient of Variation 14.2 % (11.5-14.5); RDW Standard Deviation 47.8 fL (36.4-46.3); Red Blood Count 3.79 M/uL (4.70-6.10); White Blood Count 7.72 K/ul (4.8-10.8)
[2023-05-08 07:46] LABS: BUN Creatinine Ratio 13.7 (10-20); Calcium 8.2 mg/dl (8.6-10.3); Creatinine Clr Calc Pharmacy 79.4 ml/min; Est GFR (African American) 73.8 ml/min; Est GFR (Non-African American) 63.7 ml/min; Potassium 3.2 mmol/L (3.5-5.1)
[2023-05-08] MEDS: MULTIVITAMIN TAB PO SCH (08:35)
[2023-05-08] MEDS: dexAMETHasone 4 MG TAB PO SCH (08:35)
[2023-05-08] MEDS: ATORVASTATIN 20 MG TAB PO SCH (08:35)
[2023-05-08] MEDS: TAMSULOSIN HCL 0.4 MG CAP PO SCH (08:36)
[2023-05-08] MEDS: LOSARTAN/HCTZ 50/12.5MG TAB PO SCH (08:36)
[2023-05-08] MEDS: SERTRALINE HCL 100 MG TABLET PO SCH (08:36)
--- NOTE | 2023-05-08 10:23 | Pharmacy Report ---
Pharmacy Glycemic Short Note 2 - Date of Service May 08, 2023 - Glycemic Short BSG Results (Last 24 hours): 05/07/23 05/07/23 05/07/23 11:16 14:43 16:27 Glucose POC Glucose 102 H 111 H 151 H 05/07/23 05/08/23 05/08/23 20:42 06:26 07:26 Glucose 118 H POC Glucose 82 105 H OUTPATIENT ANTIDIABETIC REGIMEN: * Metformin 500 mg PO BID * Trulicity 4.5 mg SC weekly HbA1c = 6% on 03/10/23 ASSESSMENT: * 57 y/o M admitted yesterday for L TKA. He has history of Type 2 diabetes managed on oral Metformin and SC Trulicity at home. Will hold these meds while admitted in hospital. * Patient was started on Novolog bolus insulin yesterday - wt based stress of 2. * BSGs have been under control so far, fasting BSG today was 105 mg/dl. * Patient did receive PO Dexamethasone 8 mg this morning. Novolog carb ratio tightened slightly with lunch. * So far he has not required any basal insulin but will re-assess with pre-lunch BSG today. PLAN FOR INPATIENT GLYCEMIC CONTROL: * Hold outpatient diabetes medications * Basal insulin * None * Bolus insulin * NovoLog per scale ACHS or Q6hrs while NPO * Goal Range: Low 110 mg/dL - High 140 mg/dL * Correction Factor: 20 mg/dL/unit * Nutritional / Prandial insulin per carb ratio of 1 unit per 7 grams CHO consumed
[2023-05-08] MEDS ORDERED: RIVAROXABAN 10 MG TABLET PO SCH (15:00)
--- NOTE | 2023-05-12 07:38 | Discharge Summary ---
Date of Service May 12, 2023 Discharge Data Procedures Performed Operation Date: 05/07/23 12:30 Actual Procedures p Left Total Knee Arthroplasty(Left) - Jason Caputo MD Hospital Course (1) Status post left knee replacement: This is a 57 year old patient admitted on 05/07/23 and underwent total knee arthroplasty. He tolerated the procedure well and there were no complications. Transferred to the PACU post op and later to the orthopedic floor for further care. He was given ancef for antibiotic prophylaxis. He was also given KISHA stockings, SCDs, and xarelto for DVT prophylaxis. Hemoglobin, hematocrit, and vital signs were monitored during his hospital stay and remained stable. Did not require any blood transfusions. There were no complications during his hospital stay. By post op day #1 the patient was tolerating a diabetic diet, pain was reasonably controlled with oral pain medicine, and he was participating in physical therapy. On post op day #1 the patient was discharged home and set up with home health care. He was given printed discharge instructions including prescriptions for extra strength tylenol, xarelto, cefadroxil, senokot, zofran, oxycodone, and flomax. Continue physical therapy, weight bearing as tolerated. Continue KISHA stockings. Follow up approximately 2 weeks post op or sooner if there are problems or concerns. Coding Level of Care Code None Diagnoses Status post left knee replacement Z96.652
== END 2023-05-08 10:44 | disposition home health service (06) ==
LOC: ASU 10:57 → 3E 10:57
DX: I10 Essential (primary) hypertension; Z86.16 Personal history of COVID-19; E11.9 Type 2 diabetes mellitus without complications; Z86.711 Personal history of pulmonary embolism; Z86.718 Personal history of other venous thrombosis and embolism; Z79.85 Long-term (current) use of injectable non-insulin antidiabetic drugs; Z79.899 Other long term (current) drug therapy; Z78.9 Other specified health status; Z01.810 Encounter for preprocedural cardiovascular examination; Z01.812 Encounter for preprocedural laboratory examination; M17.12 Unilateral primary osteoarthritis, left knee; Z01.818 Encounter for other preprocedural examination; Z88.8 Allergy status to other drugs, medicaments and biological substances; M47.812 Spondylosis without myelopathy or radiculopathy, cervical region; E78.5 Hyperlipidemia, unspecified; K21.9 Gastro-esophageal reflux disease without esophagitis